=== PATIENT | female | born 1940 | race Caucasian/White ===

== ENCOUNTER 2023-02-07 15:10 | Outpatient (AMB) | payer MEDICARE, SELFPAY ==
--- NOTE | 2023-02-07 15:18 | A.OFFVIS_ITS ---
Intake Vital Signs 02/07/23 15:24 Height 5 ft 1 in Weight 140 lb BMI 26.4 BP 128/62 Blood Pressure Location Lt brachial Position Sitting Respiration 16 Pulse 68 Pulse Source Pulse Oximeter Pulse Oximetry (%) 98 Oxygen Delivery Method Room Air Intake Visit Reasons: [employer]: Abnormal MRI of Head - Conf Intake Note: Pt presents to the office for new pt evaluation after having an abnormal MRI of the head. Silk Spreader Required: No Allergies nitrofurantoin [From Macrobid] Allergy (Intermediate, Verified 02/07/23 15:27) Rash Medication List - Last Reconciled 02/07/23 by Maria Del Rosario Philip MD acetaminophen (Tylenol) 325 mg PO QID PRN acetaminophen ER (Tylenol Arthritis Pain) 650 mg PO Q8H amlodipine 10 mg PO DAILY aspirin 81 mg PO DAILY atorvastatin 20 mg PO DAILY carvedilol 25 mg PO BID cholecalciferol (vitamin D3) 50 mcg PO DAILY fluticasone propionate 50 mcg/actuation 1 spray intranasal DAILY latanoprost 0.005% 1 drp ophthalmic (eye) DAILY meclizine 12.5 mg PO BID-QID PRN metformin 500 mg PO BID ondansetron HCl 4 mg PO Q8H oxybutynin chloride 5 mg PO DAILY promethazine 12.5 mg PO Q6H PRN sacubitril-valsartan 24-26 mg (Entresto) 1 tab PO BID HPI HPI Comments History of Present Illness Details 82y/o female comes for neurological eval uation.In July 2022 she had an episode of dizziness ( spinning sensation) headaches, sensation of loss of balance ,nausea, vomiting , head pressure with loud noise in her ears .It lasted for about 1-2 days . she was taken to ER. MRI was nonfocal, CTA showed mild josé ICA stenosis and right vertebral artery stenosis .she was seen by vascular who suggested to continue aspirin and atorvastatin she was diagnosed with vertigo - likely peripheral and was discharged on vestibular and occupational therapy . Since her discharge she pond shad mild episodes - flonase has helped her. Any change in atmosheric pressure makes her episodes worse. [facility] Medical History (Updated 02/07/23 @ 16:12 by Maria Del Rosario Philip MD) Vertigo Cervicalgia CAD (coronary artery disease) CHF (congestive heart failure) Depression HTN (hypertension) Diabetes Breast cancer Carotid artery disease Surgical History H/O mastectomy History of appendectomy Family History Mother No problems noted. Father HTN (hypertension) Hypercholesterolemia Heart disease Sister No problems noted. Household Members: Spouse and Children Caregiver staying overnight: Yes Housing: House Alcohol intake: never Patient Tobacco Use Status: Never used Tobacco Use of substances other than those prescribed or required for medical reasons: No Review of Systems Const Details: see HPI Physical Exam Vital Signs: Last Vital Signs Pulse 68 02/07/23 15:24 Resp 16 02/07/23 15:24 BP 128/62 02/07/23 15:24 Pulse Ox 98 02/07/23 15:24 Oxygen Delivery Method Room Air 02/07/23 15:24 BMI result Body Mass Index 26.4 Const General: cooperative, healthy appearing and comfortable Nutritional Appearance: average body habitus Orientation/consciousness: patient oriented x3 Eyes Pupils: Equal, round and reactive pupils present Neck Neck: Yes no meningeal signs Neuro Other: antecollis severe tightness in josé trapezius and semispinalis General: patient oriented x3, gait normal, tone normal, moves all extremities, no meningeal signs and no focal motor deficits Cranial nerves: Yes Facial sensation intact/muscles of mastication intact, Yes Equal, round and reactive pupils present, Yes Bilaterally intact EOM present, Yes Nystagmus not present, Yes Normal facial strength present, Yes Midline tongue present and Yes Symmetric palate elevation present Cognition (Neuro): normal cognition Gait exam (Neuro): Normal gait present Motor exam (neuro): 5/5 motor strength present throughout and Normal motor muscle tone present throughout Deep tendon reflexes (DTR's): Right triceps reflex intensity grade: 1+, Left triceps reflex intensity grade: 1+, Rt Biceps (C5, C6): 1+, Left biceps reflex intensity grade: 1+, Right brachioradialis reflex intensity grade: 1+, Left brachioradialis reflex intensity grade: 1+, Right patellar reflex intensity grade: 1+ and Left patellar reflex intensity grade: 1+ Coordination: [id number] test normal Assessment & Plan Assessment & Plan (1) Vertigo: Comment: ? vestibular migraine ? BPV . Incidental right vertebral artery stenosis Code(s): R42 - Dizziness and giddiness (2) Cervicalgia: Code(s): M54.2 - Cervicalgia Plan Reviewed her MRI and CTA results I suggested to continue aspirin 81mg qd and atorvastatin 20 mg qd Continue vestibular therapy and meclizine as needed C spine XRay PT for myofascial release Orders: Orders XR cervical spine 3V Today M54.2 - Cervicalgia PT Evaluation and Treatment Today M54.2 - Cervicalgia Coding Level of Care Code New Pt Level 4 (87479) Diagnoses Vertigo R42 Cervicalgia M54.2
[2023-02-07 15:24] VITALS: BP 128/62; PULSE 68; RESP 16; O2SAT 98; BMI 26.4
== END 2023-02-07 16:10 | disposition home or self-care (01) ==
PROVIDERS: PCP Internal Medicine; Visit Provider Psychiatry & Neurology Neurology
DX: R42 Dizziness and giddiness (principal); M54.2 Cervicalgia
CPT/HCPCS: 99204

== ENCOUNTER → 2023-02-07 15:10 | Outpatient (BNVA) | payer MEDICARE, SELFPAY | PROVIDERS: PCP Internal Medicine; Visit Provider Psychiatry & Neurology Neurology | DX: R42 Dizziness and giddiness (principal); M54.2 Cervicalgia | CPT/HCPCS: 99202 ==

== ENCOUNTER 2024-05-20 13:10 | Outpatient (AMB) | payer MEDICARE, SELFPAY ==
--- NOTE | 2024-05-20 13:12 | A.OFFVIS_ITS ---
Vital Signs 05/20/24 13:18 Height 5 ft 1 in Pulse 62 Pulse Source Pulse Oximeter Pulse Oximetry (%) 98 Oxygen Delivery Method Room Air Intake Visit Reasons: Follow up-had stroke in December Intake Note: Patient added urgently, daughter made appointment mom had stroke in December since then she hasn't been doing good. Allergies nitrofurantoin [From Macrobid] Allergy (Intermediate, Verified 05/20/24 13:19) Rash HPI Comments Details: 82y/o female comes for neurological evaluation following a stroke in Dec 282023. she had a headaches the whole day and dizziness and at around midnight had slurred speech and speech and was weak. AT [facility] she was found to have left sided weakness , left hemineglect and was confused .she was not eligible for IV thrompoysis as she was outside the window and she also started improving. CT showed hyperdense vessel at Right GA M2 . CTA showed occlusion of inf division of Right MCA , atherosclerosis Left MCA neck and Right V 4 atherosis . Due to her clinical improvement thrombectomy was ruled out . she was diagnsoed with atrial fibrillation Now she is on Eliquis she also had a fall In Mar 23 at home - fracture left hip . she had surgery and is doing better. Prior history-In July 2022 she had an episode of dizziness ( spinning sensation) headaches, sensation of loss of balance ,nausea, vomiting , head pressure with loud noise in her ears .It lasted for about 1-2 days . she was taken to ER. MRI was nonfocal, CTA showed mild josé ICA stenosis and right vertebral artery stenosis .she was seen by vascular who suggested to continue aspirin and atorvastatin she was diagnosed with vertigo - likely peripheral and was discharged on vestibular and occupational therapy . Since her discharge she pond shad mild episodes - flonase has helped her. Any change in atmosheric pressure makes her episodes worse. [facility] Medical History CVA (cerebral vascular accident) Vertigo Cervicalgia CAD (coronary artery disease) CHF (congestive heart failure) Depression HTN (hypertension) Diabetes Breast cancer Carotid artery disease Surgical History History of hip surgery H/O mastectomy History of appendectomy Family History Mother No problems noted. Father HTN (hypertension) Hypercholesterolemia Heart disease Sister No problems noted. Social History Household Members: Spouse and Children Caregiver staying overnight: Yes Housing: House Alcohol intake: never Patient Tobacco Use Status: Never used Tobacco Physical Exam Vital Signs: Last Vital Signs Pulse 62 05/20/24 13:18 Pulse Ox 98 05/20/24 13:18 Oxygen Delivery Method Room Air 05/20/24 13:18 Const General: cooperative, healthy appearing and comfortable Nutritional Appearance: average body habitus Orientation/consciousness: patient oriented x3 Eyes Pupils: Equal, round and reactive pupils present Neck Neck: Yes no meningeal signs Neuro Other: antecollis severe tightness in josé trapezius and semispinalis Mild left facial paresis , Mild left UE weakness and Le weakness gait not evaluated today General: patient oriented x3, tone normal, moves all extremities, no meningeal signs and no focal motor deficits Cranial nerves: Yes Facial sensation intact/muscles of mastication intact, Yes Equal, round and reactive pupils present, Yes Bilaterally intact EOM present, Yes Nystagmus not present, Yes Midline tongue present and Yes Symmetric palate elevation present Cognition (Neuro): normal cognition Motor exam (neuro): Normal motor muscle tone present throughout Deep tendon reflexes (DTR's): Right triceps reflex intensity grade: 2+, Left triceps reflex intensity grade: 2+, Rt Biceps (C5, C6): 2+, Left biceps reflex intensity grade: 2+, Right brachioradialis reflex intensity grade: 2+, Right patellar reflex intensity grade: 3+ and Left patellar reflex intensity grade: 3+ Assessment & Plan Assessment & Plan (1) CVA (cerebral vascular accident): Code(s): I63.9 - Cerebral infarction, unspecified Category: Medical (2) Vertigo: Comment: ? vestibular migraine ? BPV . Incidental right vertebral artery stenosis Code(s): R42 - Dizziness and giddiness Category: Medical (3) Cervicalgia: Code(s): M54.2 - Cervicalgia Category: Medical Plan Continue Eliquis 5 mg bid - f/u with Cardiology Continue PT f/u with PCP Coding Level of Care Code Est Pt Level 4 (59463) Complex EM visit Add On G2211 Diagnoses CVA (cerebral vascular accident) I63.9 Vertigo R42 Cervicalgia M54.2
[2024-05-20 13:18] VITALS: PULSE 62; O2SAT 98
--- OUTSIDE RECORDS SUMMARY | 2024-05-20 16:28 | XMS_ITS | Encounter Summary ---
Author Organization [facility] Address [address] [place] [address] Care Team Providers Care Dump Motor Operator Name Role Phone Brielle Barrientos MD Primary Care Pr ovid Reason for Referral * Consultation (Routine) - Authorized Specialty Diagnoses / Procedures Referred By Contac t Referred To Contact Orthopedic Surgery Diagnoses Left hip pain Brielle Barrientos MD [address] [place] [phone] Phone: tel: fax: Alicia Fraire MD [address] [place] [phone] Phone: tel: fax: Referral ID Status Reason Start Date Expiration Date Visits Requested Visits Authorized [id number] Authorized Specialty Services Required 04/29/2024 04/29/2025 12 12 Reason for Visit * Reason Onset Date Comments Referral 04/22/2024 Fax requesting terri galdamez referral - orthopedics Encounter Details Date Type Department Care Team ([facility] st Contact Info) Description 04/22/2024 Telephone Adult Medicine [address] [phone] Brielle Barrientos MD [address] [place] [address] [phone] Referral (Fax requesting insurance referral - orthopedics) Social History Tobacco Use Types Packs/Day Years Used Date Smoking Tobacco: Never Smokeless Tobacco: Never Alcohol Use Standard Drinks/Week Comments Never 0 (1 standard drink = 0.6 oz pur e alcohol) Comments Unknown Sex and Gender Information Value Date Recorded Sex Assigned at Not on file Legal Sex Female 11:27 PM EST Gender Identity Not on file Sexual Orientation Not on file documented as of this encounter Progress Notes * Roula Dee - 04/22/2024 2:43 PM EST Fax rec'd requesting an ins referral Caller: Fax Office: [facility] Specialty: orthopedics Insurance: [facility] ID: [id number] Provider: Ryley Fraire DOS: 04/29/24 Visits: 12 Dx code: M25.552 Pls create an order with the above information so that I may process it through the pts insurance. Thank you IMPORTANT Pls copy and paste the above info into the order. Otherwise, it will not be processed as an ins referral documented in this encounter Plan of Treatment Upcoming Encounters Date Type Department Care Team (Late st Contact Info) Description 05/23/2024 11:45 AM EST Appointment Bone Density - [address] [phone] 05/26/2024 3:00 PM EDT Consult Endocrinology - [address] [phone] Irina Wheeler MD [address] [place] [phone] 08/22/2024 10:30 AM EDT Office Visit Adult Medicine [facility] - [address] [phone] Melanie Mata PA [address] [place] [address] 01/22/2025 10:15 AM EST Office Visit [facility] Hematology Oncology [address] [place] [phone] Hong Verma MD [address] [place] [address] Scheduled Referrals Name Type Priority Associated Diagnoses Order Schedule Ambulatory referral to Orthopedic Outpatient Referral Routine Left hip pain 1 Occurrences starting 04/24/2024 until 04/24/2025 documented as of this encounter Goals Goal Patient Goal Type Associated Problems Recent Progress Patient-Stated? Author Pt goals General On track( 3:53 PM EST) Yes James Johnson, OT Note: Get back to cooking and cleaning like she did before OT STG 6-8 visits General On track( 2:13 PM EST) No James Johnson, OT Note: Pt to identify 1-2 adaptive tech/equipment to increase I with ADLs, IADLs - Met Pt to increase wrist ext to >= 30* to improved I with dressing - Met Pt to increase L bar tacker strength to >= 35# to be able to use L UE to cut soft foods - progressing toward goal Pt to increase L sh flex AROM >= 120* to increase independence in dressing - progressing toward goal Pt to perform initial HEP MOD I - Met OT LTG 12 visits General On track( 3:52 PM EST) Yes James Johnson, OT Note: Pt will demo improved L UE AROM WFL for light IADLs Pt to demo increased bar tacker strength >= 40# to be able to cut tough foods Pt to perform HEP MOD I documented as of this encounter Visit Diagnoses Diagnosis Left hip pain- Primary Pain in joint, pelvic region and thigh documented in this encounter Care Teams Dump Motor Operator Relationship Specialty Start Date End Date Brielle Barrientos MD [address] [place] [address] PCP - General Internal Medicine 01/11/24 documented as of this encounter
--- OUTSIDE RECORDS SUMMARY | 2024-05-20 16:28 | XMS_ITS ---
Author Organization [facility] Address [address] [facility] [address] [place] [address] Care Team Providers Care Public Policy Manager Name Role Phone Yahir Bill Primary Care Provider Unavaildavid Hua M.D, M.P.H, Sri Unavailable [facility] Adult [facility] Unavailable U navailable REASON FOR VISIT Sensorineural hearing loss (SNHL) of right ear with restricted hearing of left ear Encounters Encounter Location Date Provider Diagnosis [facility] [address] [phone] 10/22/2023 Sri Hua Plan Of Treatment No Information Progress Notes * Sherrill PADILLA SDOB:[birth year] (83 yo F)Acc No.[id number]:10/22/2023 Progress Note Patient:?Sherrill PADILLA Provider:?Sri Hua M.D.,M.P.H :1940???Age:82 Y???Sex:Female D ate:10/22/2023 Address:[address] [place], [place] [phone] Pcp:Yahir Bill Subjective: * Chief Complaints: * ???1. Sensorineural hearing loss (SNHL) of right ear with restricted hearing of left ear. * Medical History:? Objective: * Vitals:? * Physical Examination:? Assessment: Plan: * Treatment: * Images: * Electronic signature of Olga Hua M.D M.P.H, Pamela,M.P.H on 05/20/2024 at 04:28 PM EST Sign off status: Pending * Provider:?Sri Hua M.D.,M.P.H Date:?0 10/22/2023 Generated for Eneida basilio/Zeenat/Dre on:?05/20/2024 04:28 PM EST
--- OUTSIDE RECORDS SUMMARY | 2024-05-20 16:28 | XMS_ITS | Encounter Summary ---
Author Organization [facility] Address [address] [place] [address] Care Team Providers Care Food Service Kitchen Supervisor Name Role Phone Brielle Barrientos MD Primary Care Pr ovider Reason for Visit * Reason Comments Constipation Anemia * Consultation (Routine) - Authorized Specialty Diagnoses / Procedures Referred By Contac t Referred To Contact Gastroenterology Diagnoses Other constipation Procedures N/A Brielle Barrientos MD [address] [place] [address] Phone: tel: fax: Carlo Simons MD [address] [place] [address] Phone: tel: fax: Referral ID Status Reason Start Date Expiration Date V isits Requested Visits Authorized [id number] Authorized 08/14/2023 08/13/2024 6 6 Encounter Details Date Type Department Care Team ([facility] st Contact Info) Description 05/16/2024 3:00 PM EST Office Visit Gastroenterology - [place] 175 [facility] [address] [address] Torie Hathaway NP [address] [address] Dyssynergic defecation (Primary Dx); Normocytic anemia Social History Tobacco Use Types Packs/Day Years [...] on file documented as of this encounter Last Filed Vital Signs Vital Sign Reading Time Taken Comments Blood Pressure 136/60 05/16/2024 3:13 PM EST Pulse - - Temperature - - Respiratory Rate - - Oxygen Saturation - - Inhaled Oxygen Concentration - - Weight - - Height 163.8 cm (5' 4.5 ) 05/16/2024 3:13 PM EST Body Mass Index - - documented in this encounter Ordered Prescriptions Prescription Sig Dispense Quantity Refills Last Filled Start Date End Date senna-docusate (PERICOLACE) 8.6-50 mg per tablet Take 2 tablets by mouth 1 (one) time each day if needed for constipation. 180 each 05/18/2024 documented in this encounter Progress Notes * Torie Hathaway, CHARLES - 05/16/2024 3:00 PM EST CHIEF COMPLAINT: Follow-up constipation HPI: Sherrill Ealsey is a Mexican speaking 83 y.o. old female whose PMH includes hypertension, chronic systolic heart failure, ischemic cardiomyopathy, varicose veins of both lower extremities, type 2 diabetes mellitus without complication, mixed hyperlipidemia, urge incontinence of urine, localized osteoporosis, osteoarthritis of multiple joints, benign paroxysmal positional vertigo, alcohol,breast size and historical appendectomy presents to the gastroenterology department today for a follow up of constipation. Patient is Mexican speaking. She is accompanied by her daughter who translated during this visit. She is in a wheelchair due to left hip fracture. Patient reports history of cerebrovascular accident due to thrombosis of right middle cerebral artery February 2024. She also presented to [facility] in March after a fall at home withsubsequent intertrochanteric fracture of left hip. She reports constipation was worse when she was using oxycodone for pain management. However, she is now using Tylenol instead constipation is well-managed with use of lactulose. Lab work completed on 05/02/2024 revealed mild normocytic anemia. She is taking iron ferrous sulfate. Today, she denies fever, nausea, vomiting, dysphagia, odynophagia, hematemesis, acid reflux or heartburn, abdominal pain, loss of appetite, unintentional weight loss, melena or hematochezia. She denies NSAIDs, alcohol, tobacco or marijuana use. She is on Eliquis due to recent stroke. ROS: GENERAL: No malaise, significant weight loss or fever HEENT: No changes in hearing or vision, nose bleeds or swallowing problems NECK: No lumps, goiter, pain or significant neck swelling RESPIRATORY: No cough, wheezing or shortness of breath CARDIOVASCULAR: No chest pain GI: See HPI MUSCULOSKELETAL: Left hip pain secondary to left hip fracture SKIN: No lesions, rash or itching PAST MEDICAL HISTORY: Patient Active Problem List Diagnosis Date Noted Osteoarthritis of spine with radiculopathy, lumbar region 03/10/2024 Basal cell carcinoma (BCC) of skin of face 03/10/2024 Facet arthropathy, lumbar 01/27/2024 Spinal stenosis of lumbar region without neurogenic claudication 01/27/2024 Stenosis of both vertebral arteries 01/26/2024 History of breast cancer 01/26/2024 Varicose veins of bilateral lower extremities with other complications 01/26/2024 Thyroid lesion 01/26/2024 Left bundle branch block 01/26/2024 Right internal carotid artery aneurysm 01/26/2024 Primary insomnia 01/26/2024 Primary hypertension 01/26/2024 Age-related osteoporosis without current pathological fracture 01/25/2024 Cerebrovascular accident (CVA) due to thrombosis of right middle cerebral artery ([facility]) 01/25/2024 Hyperlipidemia LDL goal <70 01/25/2024 CKD stage 3b, GFR 30-44 ml/min ([facility]) 01/25/2024 Chronic constipation 01/25/2024 Skin lesion of face 01/25/2024 Dilated cardiomyopathy ([facility]/H[facility]) 01/25/2024 Paroxysmal atrial fibrillation ([facility]) 01/25/2024 Primary open angle glaucoma (POAG) of both eyes 01/25/2024 Generalized anxiety disorder 01/25/2024 Allergic rhinitis 01/25/2024 Subclinical hyperthyroidism 01/25/2024 Anemia of chronic renal failure, stage 3b ([facility]/HCC) 01/25/2024 Iron deficiency 01/25/2024 B12 deficiency 01/25/2024 Urge incontinence 01/25/2024 Type 2 diabetes mellitus with diabetic microalbuminuria, without long-term current use of insulin ([facility]) 01/25/2024 Itchy eyes 01/25/2024 Primary osteoarthritis involving multiple joints 08/14/2023 Benign paroxysmal positional vertigo due to bilateral vestibular disorder 06/05/2020 SOCIAL HISTORY: Social History Tobacco Use Smoking status: Never Smokeless tobacco: Never Substance Use Topics Alcohol use: Never FAMILY HISTORY: No family history on file. ACTIVE MEDICATIONS: Outpatient Medications Marked as Taking for the 05/16/24 encounter (Office Visit) with Torie Hathaway NP Medication Sig Dispense Refill acetaminophen (TYLENOL 8 HOUR) 650 mg 8 hr tablet Take 1 tablet (650 mg total) by mouth every 8 (eight) hours if needed for mild pain. Do not crush, chew, or split. amLODIPine (NORVASC) 5 mg tablet Take 1 tablet (5 mg total) by mouth 1 (one) time each day. Take with 2.5mg for total of 7.5mg daily 90 each 1 aspirin 81 mg EC tablet Take 1 tablet (81 mg total) by mouth 1 (one) time each day. atorvastatin (LIPITOR) 20 mg tablet Take 1 tablet (20 mg total) by mouth at bedtime. 90 tablet 1 calcium carbonate EX (TUMS EX) 300 mg (750 mg) chewable tablet Chew 1 tablet (300 mg total) 1 (one)time each day. cholecalciferol (VITAMIN D-3) 50 mcg (2,000 unit) tablet Take 1 tablet (2,000 Units total) by mouth1 (one) time each day. citalopram (CeleXA) 10 mg tablet Take 0.5 tablets (5 mg total) by mouth 1 (one) time each day in the morning. 45 tablet 1 cyanocobalamin (VITAMIN B-12) 1,000 mcg tablet Take 1 tablet (1,000 mcg total) by mouth 1 (one) time each day. 90 each 3 denosumab (PROLIA) 60 mg/mL syringe syringe Inject 1 mL (60 mg total) under the skin 1 (one) time. Eliquis 5 mg tablet Take 1 tablet (5 mg total) by mouth every 12 hours. fluticasone propionate (FLONASE) 50 mcg/actuation nasal spray Administer 1 spray into each nostril 2 (two) times a day. Shake gently. Before first use, prime pump. After use, clean tip and replace cap. 16 g 1 ketotifen (Zaditor) 0.025 % ophthalmic solution Administer 1 drop into both eyes 1 (one) time each day in the morning. 10 mL 1 lactulose (CHRONULAC) solution Take 15 mL (10 g total) by mouth 1 (one) time each day if needed (constipation). latanoprost (XALATAN) 0.005 % ophthalmic solution Administer 1 drop into both eyes at bedtime. LORazepam (ATIVAN) 0.5 mg tablet Take 1 tablet (0.5 mg total) by mouth every 6 (six) hours if needed for anxiety. melatonin 3 mg tablet Take 1 tablet (3 mg total) by mouth at bedtime. methIMAzole (TAPAZOLE) 5 mg tablet Take 1 tablet (5 mg total) by mouth 1 (one) time each day. 90 tablet 1 oxyBUTYnin XL (DITROPAN-XL) 10 mg 24 hr tablet Take 1 tablet (10 mg total) by mouth 1 (one) time each day. Do not crush, chew, or split. 90 each 1 sacubitriL-valsartan (ENTRESTO) 24-26 mg per tablet Take 1 tablet by mouth 2 (two) times a day. Current Facility-Administered Medications for the 05/16/24 encounter (Office Visit) with Torie Hathaway NP Medication Dose Route Frequency Provider Last Rate Last Admin cyanocobalamin (VITAMIN B-12) injection 1,000 mcg 1,000 mcg intramuscular q30 days Brielle Barrientos MD 1,000 mcg at 02/13/24 1602 ALLERGIES: Allergies Allergen Reactions Macrobid [Nitrofurantoin Monohyd/M-Cryst] PHYSICAL EXAM: Visit Vitals BP 136/60 Ht 1.638 m (64.5 ) BMI 22.81 kg/m?? Smoking Status Never BSA 1.66 m?? APPEARANCE: Alert and in no acute distress EYES: Conjunctiva and sclera normal. MOUTH/THROAT: no erythema or exudates NECK: Neck supple, no adenopathy HEART: RRR with normal S1 and S2 LUNG: Clear to auscultation ABDOMEN: Soft non tender, no ascites, guarding, or rebound. RECTAL: Exam deferred. SKIN: Skin color, texture, turgor normal. NEURO: Awake, alert and oriented x 3 LABS: Appointment on 04/21/2024 Component Date Value Ref Range Status Vitamin B-12 04/21/2024 679 250 - 900 pcg/mL Final IMAGING: No pertinent imaging IMPRESSION: 1. Dyssynergic defecation 2. Normocytic anemia PLAN: Sherrill Easley is a Mexican speaking 83 y.o. old female whose PMH includes hypertension, chronic systolic heart failure, ischemic cardiomyopathy, varicose veins of both lower extremities, type 2 diabetes mellitus without complication, mixed hyperlipidemia, urge incontinence of urine, localized osteoporosis, osteoarthritis of multiple joints, benign paroxysmal positional vertigo, alcohol, breast size and historical appendectomy presents for follow-up constipation. 1. Dyssynergic defecation: Constipation due to anal sphincter weakness/pelvic floor dysfunction. Increase dietary fiber and fluid intake. May use Metamucil or Benefiber. Continue using lactulose as directed. May titrate as needed. May also use Senokot as needed. 2. Normocytic anemia: Anemia workup completed 05/02/2024 revealed mild normocytic anemia with hemoglobin 10.3, hematocrit 32.7 and normal MCV. Continue taking iron ferrous sulfate. Continue monitoring labs through your PCP. If persistent, I will consider diagnostic EGD and colonoscopy after recovery of left hip fracture. Follow-up as needed. Patient agrees with the above plan and understands the need to follow up as indicated. Please note, this note may have been created in part by using [employer] dictation software, and therefore, it may contain typographical and/or grammatical errors inherent in a voice recognition software program documented in this encounter Plan of Treatment Upcoming Encounters Date Type Department Care Team (Late st Contact Info) Description 05/23/2024 11:45 AM EST Appointment Bone Density - [address] [phone] 05/26/2024 3:00 PM EDT Consult Endocrinology - [address] [phone] Irina Wheeler MD [address] [place] [phone] 08/22/2024 10:30 AM EDT Office Visit Adult Medicine [address] [phone] Melanie Mata PA [address] [place] [address] 01/22/2025 10:15 AM EST Office Visit [facility] Hematology Oncology [address] [place] [phone] Hong Verma MD [address] [place] [address] documented as of this encounter Goals Goal [...] dressing - Met 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
--- OUTSIDE RECORDS SUMMARY | 2024-05-20 16:28 | XMS_ITS | Encounter Summary ---
Author Organization [facility] Address [address] [place] [address] Care Team Providers Care Automotive Starter Repairer Name Role Phone Brielle Barrientos MD Primary Care Pr ovider Encounter Details Date Type Department Care Team (Late Contact Info) Description 04/02/2024 Lab Requisition [facility] - Main Lab [address] [facility] [place] [address] Yasmany Tsai MD [address] [place] [address], [phone] Hyperlipidemia, unspecified; Type 2 diabetes mellitus without complications (CMS/HCC) Social History Tobacco Use Types Packs/Day Years [...] on file documented as of this encounter Plan of Treatment Upcoming Encounters Date Type Department Care Team (Late Contact Info) Description 05/23/2024 11:45 AM EST Appointment Bone Density - [address] [phone] 05/26/2024 3:00 PM EDT Consult Endocrinology - [address] [phone] Irina Wheeler MD [address] [place] [phone] 08/22/2024 10:30 AM EDT Office Visit Adult Medicine [address] [phone] Melanie Mata PA [address] [place] [address] 01/22/2025 10:15 AM EST Office Visit [facility] Hematology Oncology [address] [place] [phone] Hong Verma MD [address] [place] [address] documented as of this encounter Goals Goal [...] dressing - Met 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 >= 35# to be able [...] for light IADLs Pt to demo increased used car sales supervisor strength >= 40# to be able to cut tough foods Pt to perform HEP MOD I documented as of this encounter Procedures Procedure Name Priority Date/Time Associated Diagnosis Comments LIPID PANEL WITH REFLEX TO DIRECT LDL Routine 04/02/2024 5:24 AM EST Hyperlipidemia, unspecified Type 2 diabetes mellitus without complications (CMS/HCC) IRON AND TIBC Routine 04/02/2024 5:24 AM EST Hyperlipidemia, unspecified Type 2 diabetes mellitus without complications (CMS/HCC) COMPLETE BLOOD COUNT Routine 04/02/2024 5:24 AM EST Hyperlipidemia, unspecified Type 2 diabetes mellitus without complications (CMS/HCC) THYROID STIMULATING HORMONE Routine 04/02/2024 5:24 AM EST Hyperlipidemia, unspecified Type 2 diabetes mellitus without complications (CMS/HCC) THYROXINE TOTAL Routine 04/02/2024 5:24 AM EST Hyperlipidemia, unspecified Type 2 diabetes mellitus without complications (CMS/HCC) HEMOGLOBIN A1C Routine 04/02/2024 5:24 AM EST Hyperlipidemia, unspecified Type 2 diabetes mellitus without complications (CMS/HCC) FERRITIN Routine 04/02/2024 5:24 AM EST Hyperlipidemia, unspecified Type 2 diabetes mellitus without complications (CMS/HCC) COMPREHENSIVE METABOLIC PANEL Routine 04/02/2024 5:24 AM EST Hyperlipidemia, unspecified Type 2 diabetes mellitus without complications (CMS/HCC) documented in this encounter Results * Thyroxine total (04/02/2024 5:24 AM EST) T4, Total 6.4 4.5 - 10.9 mcg/dL LAB CHEMISTRY METHOD 04/02/2024 10:18 AM EST [facility] Blood Venous blood specimen / Unknown Venipuncture / Unknown 04/02/2024 5:24 AM EST 04/02/2024 8:59 AM EST us Yasmany Tsai MD LAB BLOOD ORDERABLES Final Resul t [facility] [address] [place] [address], * Thyroid stimulating hormone (04/02/2024 5:24 AM EST) Pathologist [facility] TSH 1.84 0.40 - 4.00 mcIU/mL LAB CHEMISTRY METHOD 04/02/2024 10:19 AM EST [facility] Blood Venous blood specimen / Unknown Venipuncture / Unknown 04/02/2024 5:24 AM EST 04/02/2024 8:59 AM EST us Yasmany Tsai MD LAB BLOOD ORDERABLES Final Resul t [facility] [address] [place] [address], * Hemoglobin A1c (04/02/2024 5:24 AM EST) [facility] Hemoglobin A1C 5.6 <6.5 % LAB CHEMISTRY METHOD 04/02/2024 12:30 PM EST [facility] Mean Bld Glu Estim. 114 mg/dL LAB CHEMISTRY METHOD 04/02/2024 12:30 PM EST [facility] Blood Venous blood specimen / Unknown Venipuncture / Unknown 04/02/2024 5:24 AM EST 04/02/2024 8:59 AM EST us Yasmany Tsai MD LAB BLOOD ORDERABLES Final Resul t [facility] [address] [place] [address], [place] [phone] * Ferritin (04/02/2024 5:24 AM EST) Pathologist [facility] Ferritin 140 8 - 252 ng/mL LAB CHEMISTRY METHOD 04/02/2024 10:11 AM EST [facility] Blood Venous blood specimen / Unknown Venipuncture / Unknown 04/02/2024 5:24 AM EST 04/02/2024 8:59 AM EST Yasmany Tsai MD LAB BLOOD ORDERABLES Final Resul t Performing Organization Address [facility]/ZIP Co de Phone Number [facility] [address] [place] [address], [place] [phone] * (ABNORMAL) Iron and TIBC (04/02/2024 5:24 AM EST) Iron 39(L) 40 - 150 mcg/dL LAB CHEMISTRY METHOD 04/02/2024 10:11 AM EST [facility] TIBC 252 250 - 450 mcg/dL LAB CHEMISTRY METHOD 04/02/2024 10:11 AM EST [facility] Iron Saturation 15 15 - 50 % LAB CHEMISTRY METHOD 04/02/2024 10:11 AM EST [facility] Blood Venous blood specimen / Unknown Venipuncture / Unknown 04/02/2024 5:24 AM EST 04/02/2024 8:59 AM EST Yasmany Tsai MD LAB BLOOD ORDERABLES Final Resul t Performing Organization Address [facility] de Phone Number [facility] [address] [place] [address], [place] [phone] * Lipid panel with reflex to direct LDL (04/02/2024 5:24 AM EST) Pathologist [facility] Cholesterol 103 0 - 200 mg/dL LAB CHEMISTRY METHOD 04/02/2024 10:11 AM EST [facility] Triglycerides 58 0 - 150 mg/dL LAB CHEMISTRY METHOD 04/02/2024 10:11 AM EST [facility] HDL 41 >=40 mg/dL LAB CHEMISTRY METHOD 04/02/2024 10:11 AM EST [facility] LDL Calculated 50 0 - 100 mg/dL LAB CHEMISTRY METHOD 04/02/2024 10:11 AM EST [facility] VLDL Cholesterol Bhupinder 11.6 mg/dL LAB CHEMISTRY METHOD 04/02/2024 10:11 AM EST [facility] Non HDL Chol. (LDL+VLDL) 62 <145 mg/dL LAB CHEMISTRY METHOD 04/02/2024 10:11 AM [facility] Chol/HDL Ratio 2.5 0.0 - 4.4 LAB CHEMISTRY METHOD 04/02/2024 10:11 AM [facility] Blood Venous blood specimen / Unknown Venipuncture / Unknown 04/02/2024 5:24 AM EST 04/02/2024 8:59 AM EST us Yasmany Tsai MD LAB BLOOD ORDERABLES Final Resul t [facility] [address] [place] [address], * (ABNORMAL) Comprehensive metabolic panel (04/02/2024 5:24 AM EST) Sodium 140 133 - 145 mmol/L LAB CHEMISTRY METHOD 04/02/2024 10:24 AM [facility] Potassium 4.2 3.5 - 5.5 mmol/L LAB CHEMISTRY METHOD 04/02/2024 10:24 AM [facility] Chloride 108 96 - 110 mmol/L LAB CHEMISTRY METHOD 04/02/2024 10:24 AM [facility] CO2 25 21 - 32 mmol/L LAB CHEMISTRY METHOD 04/02/2024 10:24 AM [facility] Anion Gap 7 3 - 11 LAB CHEMISTRY METHOD 04/02/2024 10:24 AM [facility] Glucose 106(H) 70 - 100 mg/dL LAB CHEMISTRY METHOD 04/02/2024 10:24 AM [facility] BUN 23 5 - 25 mg/dL LAB CHEMISTRY METHOD 04/02/2024 10:24 AM [facility] Creatinine 1.34(H) 0.50 - 1.10 mg/dL LAB CHEMISTRY METHOD 04/02/2024 10:24 AM [facility] eGFR 39(L) >=60 mL/min/1. 73m2 LAB CHEMISTRY METHOD 04/02/2024 10:24 AM [facility] Comment:Calculation based on the??Chronic Kidney Disease Epidemiology Collaboration (CKD-EPI) equation refit??without adjustment for race. BUN/Creatinine Ratio 17.2 LAB CHEMISTRY METHOD 04/02/2024 10:24 AM [facility] Calcium 8.5 8.5 - 10.5 mg/dL LAB CHEMISTRY METHOD 04/02/2024 10:24 AM [facility] AST (SGOT) 51(H) 10 - 42 unit/L LAB CHEMISTRY METHOD 04/02/2024 10:24 AM [facility] ALT (SGPT) 38 10 - 60 unit/L LAB CHEMISTRY METHOD 04/02/2024 10:24 AM [facility] Alkaline Phosphatase 107 42 - 121 unit/L LAB CHEMISTRY METHOD 04/02/2024 10:24 AM [facility] Total Protein 6.1 6.0 - 8.0 g/dL LAB CHEMISTRY METHOD 04/02/2024 10:24 AM [facility] Albumin 2.7(L) 3.2 - 5.0 g/dL LAB CHEMISTRY METHOD 04/02/2024 10:24 AM [facility] Total Bilirubin 0.8 0.0 - 1.4 mg/dL LAB CHEMISTRY METHOD 04/02/2024 10:24 AM [facility] Blood Venous blood specimen / Unknown Venipuncture / Unknown 04/02/2024 5:24 AM EST 04/02/2024 8:59 AM EST us Yasmany Tsai MD LAB BLOOD ORDERABLES Final Resul t [facility] [address] [place] [address], * (ABNORMAL) Complete blood count (04/02/2024 5:24 AM EST) [facility] Signature WBC 7.4 4.8 - 10.8 K/mcL LAB HEMETOLOGY METHOD 04/02/2024 9:58 AM EST [facility] RBC 3.00(L) 3.80 - 4.80 M/mcL LAB HEMETOLOGY METHOD 04/02/2024 9:58 AM [facility] Hemoglobin 8.5(L) 11.5 - 16.0 g/dL LAB HEMETOLOGY METHOD 04/02/2024 9:58 AM [facility] Hematocrit 27.1(L) 35.0 - 47.0 % LAB HEMETOLOGY METHOD 04/02/2024 9:58 AM [facility] MCV 91.2 79.0 - 98.0 FL LAB HEMETOLOGY METHOD 04/02/2024 9:58 AM [facility] MCH 28.6 27.0 - 32.0 pcg LAB HEMETOLOGY METHOD 04/02/2024 9:58 AM [facility] MCHC 31.4(L) 32.0 - 37.0 g/dL LAB HEMETOLOGY METHOD 04/02/2024 9:58 AM [facility] RDW 17.5(H) 11.0 - 15.0 % LAB HEMETOLOGY METHOD 04/02/2024 9:58 AM [facility] Platelets 475(H) 130 - 400 K/mcL LAB HEMETOLOGY METHOD 04/02/2024 9:58 AM [facility] MPV 8.9 7.0 - 11.0 FL LAB HEMETOLOGY METHOD 04/02/2024 9:58 AM [facility] NRBC 0.0 <1.0 % LAB HEMETOLOGY METHOD 04/02/2024 9:58 AM EST [facility] NRBC Absolute 0.00 <0.10 K/mcL LAB HEMETOLOGY METHOD 04/02/2024 9:58 AM EST [facility] Blood Venous blood specimen / Unknown Venipuncture / Unknown 04/02/2024 5:24 AM EST 04/02/2024 8:59 AM EST us Yasmany Tsai MD LAB BLOOD ORDERABLES Final Resul t [facility] [address] [place] [address], documented in this encounter Visit Diagnoses Diagnosis Hyperlipidemia, unspecified Type 2 diabetes mellitus without complications (CMS/HCC) documented in this encounter Care Teams Automotive Starter Repairer Relationship Specialty Start Date End Date Brielle Barrientos MD [address] [place] [address] PCP - General Internal Medicine 01/11/24 documented as of this encounter
--- OUTSIDE RECORDS SUMMARY | 2024-05-20 16:28 | XMS_ITS | Continuity of Care Document ---
Author Organization [facility] Address [address] [place] [id number]- Care Team Providers Care Representative Phlebotomy Services Name Role Phone Floyd PLUMMER, Brielle Kaye Primary Care Physicia n [facility] [id number] Date(s): 03/04/24 - 05/02/24 [facility] [address] [place] [id number]- Attending Physician: Micah Ralph MD Admitting Physician: Micah Ralph MD Referring Physician: Brielle Barrientos MD Encounter Type: Pre Office Visit Allergies, Adverse Reactions, Alerts Substance Criticality Severity Reaction Reaction Severity Status Macrobid Active Medications acetaminophen 325 mg oral tablet 975 mg, By Mouth, 3 times a day, Refills 0, Maintenance, 03/31/24 8:12:00 AM EST, Partial fill upon patient request if the prescription is for a schedule II opioid drug. Start Date: 03/31/24 Status: Ordered Repeat number: 1 amLODIPine 5 mg oral tablet 5 mg, 1, tablet, By Mouth, Daily, # 30 tablet, Refills 0, Tot. Refills 0, Maintenance, 02/27/24 9:56:00 AM EST, Route to Pharmacy Electronically, [facility], Partial fill upon patient request if the prescription is for a schedule II opioid drug., 155, cm, 02/27/24 3:58:00 EST, Height,59.5, kg, 02/26/24 23:29:00 EST, Dry Weight Start Date: 02/27/24 Status: Ordered Quantity: 30.0 Unit: tablet Repeat number: 1 apixaban = 5 mg, By Mouth, 2 times a day, 0 Refills, Maintenance, 01/05/24 12:01:00 PM EDT, Tablet, Partial fill upon patient request if the prescription is for a schedule II opioid drug. Start Date: 01/05/24 Status: Ordered Repeat number: 1 aspirin 81 mg oral delayed release tablet 81 mg, By Mouth, Daily, # 30 tablet, Refills 2, Tot. Refills 2, Maintenance, 08/05/17 1:12:55 PM EDT, Route to Pharmacy Electronically, [facility] [id number] Start Date: 08/05/17 Status: Ordered Quantity: 30.0 Unit: tablet Repeat number: 3 atorvastatin 20 mg oral tablet 1 tablet = 20 mg, By Mouth, Daily, 0 Refills, Maintenance Start Date: 07/11/18 Status: Ordered Repeat number: 1 calcium (as carbonate)-vitamin D 600 mg-800 intl units oral tablet, chewable 1 tablet, Chew, 2 times a day, # 60 tablet, 0 Refills, Maintenance, 03/31/24 8:39:00 AM EST, Chew Tablet, Partial fill upon patient request if the prescription is for a schedule II opioid drug. Start Date: 03/31/24 Status: Ordered Quantity: 60.0 Unit: tablet Repeat number: 1 citalopram 10 mg oral tablet 1 tablet = 10 mg, By Mouth, Daily Start Date: 12/30/23 Status: Ordered Repeat number: 1 Compression Stockings See Instructions, # 1 each, Maintenance, surgical, knee length 30-40 mm Hg, 06/20/20 2:32:00 PM EDT, Supply Start Date: 06/20/20 Status: Ordered Quantity: 1.0 Unit: each Repeat number: 1 Entresto 24 mg-26 mg oral tablet 1 tablet, By Mouth, 2 times a day, 0 Refills, Maintenance, 06/02/20 1:09:00 PM EDT, Partial fill upon patient request if the prescription is for a schedule II opioid drug. Start Date: 06/02/20 Status: Ordered Repeat number: 1 fluticasone 50 mcg/inh nasal spray SHAKE LIQUID AND USE 1 SPRAY IN EACH NOSTRIL TWICE DAILY Start Date: 12/30/23 Status: Ordered Repeat number: 1 lactulose 10 gm/15 ml oral syrup 30 mL = 20 Gm, By Mouth, Daily Start Date: 12/30/23 Status: Ordered Repeat number: 1 latanoprost 0.005% ophthalmic solution INSTILL 1 DROP IN BOTH EYES EVERY NIGHT AT BEDTIME DIRECTED Start Date: 12/30/23 Status: Ordered Repeat number: 1 LORazepam 0.5 mg oral tablet TAKE 1 TABLET BY MOUTH DAILY NEEDED FOR ANXIETY OR SEVERE ANXIETY Start Date: 12/30/23 Status: Ordered Repeat number: 1 meclizine 12.5 mg oral tablet 1 tablet = 12.5 mg, By Mouth, Daily, PRN as needed, 0 Refills, Maintenance, 12/30/23 12:04:00 PM EDT, Tablet, Partial fill upon patient request if the prescription is for a schedule II opioid drug. Start Date: 12/30/23 Status: Ordered Repeat number: 1 Melatonin = 3 mg, By Mouth, Daily at bedtime, 0 Refills, Maintenance, 03/24/24 6:32:00 AM EST, Partial fill upon patient request if the prescription is for a schedule II opioid drug. Start Date: 03/24/24 Status: Ordered Repeat number: 1 Methimazole = 5 mg, By Mouth, Daily, 0 Refills, Maintenance, 03/24/24 6:31:00 AM EST, Partial fill upon patient request if the prescription is for a schedule II opioid drug. Start Date: 03/24/24 Status: Ordered Repeat number: 1 oxybutynin 10 mg/24 hr oral tablet, extended release 1 tablet = 10 mg, By Mouth, Daily Start Date: 12/30/23 Status: Ordered Repeat number: 1 senna 187 mg oral tablet 1 tablet = 8.6 mg, By Mouth, 2 times a day, PRN Constipation, 0 Refills, Maintenance, 03/31/24 8:15:00 AM EST, Tablet, Partial fill upon patient request if the prescription is for a schedule II opioiddrug. Start Date: 03/31/24 Status: Ordered Repeat number: 1 Vit B Complex/Vit C/Folate Capsule 1, capsule, By Mouth, Daily, Refills 0, Maintenance, 03/31/24 8:12:00 AM EST, Capsule, Partial fill upon patient request if the prescription is for a schedule II opioid drug. Start Date: 03/31/24 Status: Ordered Repeat number: 1 Problem List Condition Confirmation Course Effective Dates Status H ealth Status Informant At risk for aspiration Confirmed Active BPPV (benign paroxysmal positional vertigo) Confirmed Active CVA (cerebrovascular accident) Confirmed Active CKD (chronic kidney disease), stage IV Confirmed Active CHF (congestive heart failure) Confirmed Active Depression Confirmed Active Diabetes mellitus Confirmed Active JUAN F (generalized anxiety disorder) Confirmed Active Hyperglycemia due to diabetes mellitus Confirmed Active HTN (hypertension) Confirmed Active Urinary retention Confirmed Active Syncope Confirmed Active Patient Care team information Care Team Personnel Name: Adolfo Fernandez RN Position: [facility] RN Member Role: Primary Care Nurse Name: Yari Lee RN Position: [facility] RN Member Role: Primary Care Nurse Name: Oksana Worley RN Position: [facility] SN RN Member Role: Primary Care Nurse Name: Cosmo RN, Alexia Zaragoza Position: [facility] Onco RN Member Role: Primary Care Nurse Name: Teri Fisher RN Position: [facility] Hospital Radiation Monitor Member Role: Primary Care Nurse Name: Salud Dickinson RN Position: [facility] RN Member Role: Primary Care Nurse Name: Susan Maddox RN Position: [facility] RN Member Role: Primary Care Nurse Name: Mesfin Hubbard RN Position: [facility] RN Member Role: Primary Care Nurse Name: Maria Antonia Willett RN Position: [facility] RN Member Role: Primary Care Nurse Name: Madonna Parada RN Position: [facility] RN Member Role: Primary Care Nurse Name: Brielle Barrientos MD Position: Reference Physician Member Role: PCP Address: [address] [place] [id number] Telecom: Name: Oscar Lu MD Position: [facility] Renal MD Member Role: Lifetime Consulting Physician Address: [address] [place], [place] [id number] [facility] [place] [address]- Telecom: Name: Hemalatha Labm RN Position: [facility] RN Member Role: Primary Care Nurse Name: Emeterio Austin RN Position: [facility] RN Member Role: Primary Care Nurse Name: Pinky Araiza RN Position: [facility] RN Member Role: Primary Care Nurse Name: Nikita Espana RN Position: [facility] RN Member Role: Primary Care Nurse Name: Zamzam Benson RN Position: [facility] RN Member Role: Primary Care Nurse Name: Jeannie Ann RN Position: [facility] RN Member Role: Primary Care Nurse Care Team Related Persons Name: MELIZA HAZEL Name: PHILL HAZEL Insurance Providers Guarantor name: LAURA HAZEL Health Plan Information #: 1 Payer: [employer] Member Number: [id number] Policy Number: NA Group Number: [id number] Health Plan Information #: 2 Payer: [employer] Member Number: [id number] Policy Number: NA Group Number: [id number]
--- OUTSIDE RECORDS SUMMARY | 2024-05-20 16:28 | XMS_ITS | Encounter Summary ---
Author Organization [facility] Address [address] [place] [address] Care Team Providers Care Animal Surgeon Name Role Phone Brielle Barrientos MD Primary Care Pr ovider Reason for Visit * Reason Comments Hospital Follow-up Encounter Details Date Type Department Care Team ([facility] st Contact Info) Description 04/21/2024 1:00 PM EST Office Visit Adult Medicine [address] [phone] Brielle Barrientos MD [address] [place] [id number] Hospital discharge follow-up (Primary Dx); Closed displaced subtrochanteric fracture of left femur with routine healing, subsequent encounter; B12 deficiency; Primary hypertension; Age-related osteoporosis without current pathological fracture; CKD stage 3b, GFR 30-44 ml/min ([facility]); Other iron deficiency anemia; Generalized anxiety disorder Social History Tobacco Use Types Packs/Day Years Used Date Smoking Tobacco: Never Smokeless Tobacco: Never Tobacco Cessation:Counseling Given: Not Answered Alcohol Use Standard Drinks/Week Comments Never 0 [...] Sign Reading Time Taken Comments Blood Pressure 135/68 04/21/2024 1:27 PM EST Pulse 60 04/21/2024 1:27 PM EST Temperature 36.8 ??C (98.3 ??F) 04/21/2024 1:27 PM ES T Respiratory Rate 16 04/21/2024 1:27 PM EST Oxygen Saturation - - Inhaled Oxygen Concentration - - Weight - - Height 154.9 cm (5' 1 ) 04/21/2024 1:27 PM EST Body Mass Index - - documented in this encounter Patient Instructions * Attachments The following attachments cannot be sent through Care Everywhere. * Hip Fracture: Surgery: General Info (Australian) documented in this encounter Progress Notes * Brielle Barrientos MD - 04/21/2024 1:00 PM ESTAssociated Problem(s): B12 deficiency She has received several b12 injections. Will update B12 level. Orders: Vitamin B12; Future * Brielle Barrientos MD - 04/21/2024 1:00 PM ESTAssociated Problem(s): Primary hypertension Continue amlodipine 5mg daily. BP is stable at 135/68 * Brielle Barrientos MD - 04/21/2024 1:00 PM ESTAssociated Problem(s): Age-related osteoporosis without current pathological fracture Start vitamin D 2000U daily and Tums . Follow up with Dr. Wheeler. (Advised to reschedule missed appointment) * Brielle Barrientos MD - 04/21/2024 1:00 PM ESTAssociated Problem(s): CKD stage 3b, GFR 30-44 ml/min ([facility]) Stable. BUN/creatinine 23.38, estimated GFR 38 on 04/14/24 Continue follow up with nephrology * Brielle Barrientso MD - 04/21/2024 1:00 PM ESTAssociated Problem(s): Iron deficiency Stable. H/H on 04/14/24 9/29.4 Continue follow up with nephrology * Brielle Barrientos MD - 04/21/2024 1:00 PM ESTAssociated Problem(s): Generalized anxiety disorder Decrease citalopram to 5mg daily due to Qtc prolongation * Brielle Barrientos MD - 04/21/2024 1:00 PM EST Images from the original note were not included. TRANSITIONAL CARE MANAGEMENT NOTE Sherrill Easley is a 83 y.o. (: 1940) female presents today for a transitional care appointment. The patient was discharged with a diagnosis of: Fall with left hip intertrochanteric fracture, acute on chronic anemia Admit Date: 03/24/24 Discharge Date: 03/31/24 Date of Service: 04/21/2024 Facility: [facility] The discharge summary and/or Transitional Care Management documentation was reviewed. She was seen by me on 03/10/24. Patient is here with her daughter- Lita who provides translation She presented to the emergency department after fall. She was found to have a left hip fracture. Orthopedics was consulted. She is status post left hip INTERTAN on 03/25/2024. Thought to be a mechanical fall as she tripped and fell on a landscaping BRICK( her daughter tells me she was trying to unload groceries at a grocery store parking lot and tripped) Hospitalization was complicated by acute on chronic anemia which required transfusion. ECG showed QTc 489. Afib with PVCs, left axis deviation (03/24/24) She is to follow-up with in 4-5 weeks and follow-up with [facility] 2 weeks after discharge for postop/staple removal. She had a CT scan of the head/cervical spine which showed no acute findings. 2.7 cm right and 2.2 cm left thyroid nodules. Thyroid ultrasound recommended. (This was noted on previous CT scans and she has already had US thyroid done in Feb 2024 which showed- Heterogenous lower pole thyroid lesions, low suspicious for malignancy. Recommend one-year follow-up.) The x-ray of the left femur done showed moderate osteopenia as well as the 3 part intertrochantericfracture of the proximal left femur with moderate varus angulation and medial displacement of the lesser troches. Mild degenerative changes of the hips bilaterally in his lower lumbar spine. She received 1 dose of IV iron on 03/27/2024. Received 3 units of PRBCs with the last transfusion on Recommendation is for repeat CBC in 2 weeks. Daughter states she received t b12 injection while in the hospital at [facility]. Discharge CBC H/H 11/09.8, platelet count 331. WBC 6.3. MCV 87.7 She was discharged to Rehab at [facility] from 03/31/24 to 04/16/24 Had labs done on 04/14/24 while at rehab H/H is stable at 12/15.4 BUN/creatinine 10/04.38, estimated GFR 38 Today, patient's daughter reports patient has been using tylenol 500mg TID. This helps with pain. Not on any narcotics. She is still not weight bearing on the left hip. Using a wheelchair for ambulation. Daughter is requesting a transport wheelchair to help move her around. She is currently using her 's wheelchair. Daughter reports that she had an initial home visit to set up home PT/OT/visiting nurse. There is another visit set up for this Sunday(04/23/24) She was previously scheduled for outpatient PT/OT/speech therapy for weakness after her CVA but this is all on hold until she recovers from the hip fracture She has an appt with [facility] for post-op follow up on 04/29/24 The liana from her hip were removed in rehab She has osteoporosis. She was previously on prolia but didn't get any injections last year (was previously seen at [facility]. Her population geneticist left the practice. She had an appt with Dr. Wheeler last month which she had to cancel because she was in rehab Daughter states that at rehab, she was getting Citalopram 10mg. This was decreased to 5mg at our last visit due to QTc prolongation. Daughter will decrease dose to 5mg from today Additionally, she is on amlodipine 5mg daily. Never started on amlodipine 7.5mg daily which was recommended at last visit due to high blood pressure. She states her mechanic marine engine instructed her not togo up on the dose. BP is 135/68 today She has vitamin D3 2000U at home and will start using this. Also has Tums (Calcium) which she will use as well. At the rehab she was getting a daily MV and Ca+ Vitamin D . Daughter is asking for clarification on what dose to use and she is advised the Tums and vitamin D 2000U is appropriate. All her other medications are unchanged and as listed in the medication list Patient Care Team: Brielle Barrientos MD as PCP - General (Internal Medicine) Lulu Casas LCSW as Residential Aide Patient Active Problem List Diagnosis Age-related osteoporosis without current pathological fracture Cerebrovascular accident (CVA) due to thrombosis of right middle cerebral artery (CMS/HCC) Hyperlipidemia LDL goal <70 CKD stage 3b, GFR 30-44 ml/min (CMS/HCC) Chronic constipation Skin lesion of face Dilated cardiomyopathy (CMS/HCC) Paroxysmal atrial fibrillation (CMS/HCC) Primary open angle glaucoma (POAG) of both eyes Generalized anxiety disorder Allergic rhinitis Subclinical hyperthyroidism Anemia of chronic renal failure, stage 3b (CMS/HCC) Iron deficiency B12 deficiency Urge incontinence Type 2 diabetes mellitus with diabetic microalbuminuria, without long-term current use of insulin ([facility]) Itchy eyes Stenosis of both vertebral arteries History of breast cancer Varicose veins of bilateral lower extremities with other complications Benign paroxysmal positional vertigo due to bilateral vestibular disorder Primary osteoarthritis involving multiple joints Thyroid lesion Left bundle branch block Right internal carotid artery aneurysm Primary insomnia Primary hypertension Facet arthropathy, lumbar Spinal stenosis of lumbar region without neurogenic claudication Osteoarthritis of spine with radiculopathy, lumbar region Basal cell carcinoma (BCC) of skin of face Allergies Allergen Reactions Macrobid [Nitrofurantoin Monohyd/M-Cryst] Current Outpatient Medications Medication Sig Dispense Refill acetaminophen (TYLENOL 8 [...] day in the morning. 45 tablet 1 denosumab (PROLIA) 60 mg/mL syringe syringe Inject [...] day in the morning. 10 mL 1 latanoprost (XALATAN) 0.005 % ophthalmic solution Administer [...] by mouth 1 (one) time each day. oxyBUTYnin XL (DITROPAN-XL) 10 mg 24 hr tablet Take 1 tablet (10 mg total) by mouth 1 (one) time each day. Do not crush, chew, or split. 90 each 1 sacubitriL-valsartan (ENTRESTO) 24-26 mg per tablet Take 1 tablet by mouth 2 (two) times a day. lactulose (CHRONULAC) solution Take 15 mL (10 g total) by mouth 1 (one) time each day if needed (constipation). Current Facility-Administered Medications Medication Dose Route Frequency Provider Last Rate Last Admin cyanocobalamin (VITAMIN B-12) injection 1,000 mcg 1,000 mcg intramuscular q30 days Brielle Barrientos MD 1,000 mcg at 02/13/24 1602 Past Medical History: Diagnosis Date Arthropathy DX:Arthropathy;COMMENT:of the knee/patella/tibia/fibula Breast cancer ([facility]) DX:Breast cancer ([facility]);COMMENT:stage l infiltrating ductal carcinoma Chronic kidney disease DX:Chronic kidney disease;COMMENT:chronic kidney disease Diabetes mellitus ([facility]) DX:Diabetes mellitus ([facility]);COMMENT:diabetic nephropathy Past Surgical History: Procedure Laterality Date APPENDECTOMY PROCEDURE: HISTORICAL APPENDECTOMY CAROTID ENDARTERECTOMY Right 2020 PROCEDURE: HISTORICAL CAROTID ENDART MASTECTOMY PROCEDURE:MASTECTOMY MASTECTOMY Right 2012 PROCEDURE: HISTORICAL MASTECTOMY OTHER SURGICAL HISTORY 2006 PROCEDURE: HISTORICAL CA BASAL CELL Social History Tobacco Use Smoking status: Never Smokeless tobacco: Never Substance Use Topics Alcohol use: Never Drug use: Never No family history on file. Immunization History Administered Date(s) Administered COVID-19 (Moderna/Spikevax) 12yo and older 04/06/2023, 04/14/2024 Moderna (age 6mo & older) Bivalent, COVID-19, 0.5 mL or 0.25 mL dosage 12/13/2021 Moderna SARS-CoV-2 COVID-19, mRNA, LNP-S, preservative free 04/26/2020, 05/24/2020, 01/24/2021, 07/20/2021 Review of Systems As noted in HPI Objective BP 135/68 Pulse 60 Temp 36.8 ??C (98.3 ??F) (Temporal) Resp 16 Ht 1.549 m (61 ) BMI 25.51kg/m?? Physical Exam Constitutional: General: She is not in acute distress. Appearance: Normal appearance. She is normal weight. HENT: Head: Normocephalic and atraumatic. Cardiovascular: Rate and Rhythm: Normal rate. Rhythm irregular. Pulses: Normal pulses. Heart sounds: Normal heart sounds. Pulmonary: Effort: Pulmonary effort is normal. No respiratory distress. Breath sounds: Normal breath sounds. No wheezing. Abdominal: General: There is no distension. Palpations: Abdomen is soft. Tenderness: There is no abdominal tenderness. Musculoskeletal: Comments: non pitting bl ankle/pedal edema; varicose veins in both legs Skin: Comments: 3 well healed small scars on the left lateral hip Neurological: General: No focal deficit present. Mental Status: She is alert and oriented to person, place, and time. Gait: Gait abnormal. Psychiatric: Mood and Affect: Mood normal. Behavior: Behavior normal. Assessment & Plan Hospital discharge follow-up Closed displaced subtrochanteric fracture of left femur with routine healing, subsequent encounter Follow up with [facility] on 04/29/24 as scheduled Hopefully she can start home PT/OT this week B12 deficiency She has received several b12 injections. Will update B12 level. Orders: Vitamin B12; Future Primary hypertension Continue amlodipine 5mg daily. BP is stable at 135/68 Age-related osteoporosis without current pathological fracture Start vitamin D 2000U daily and Tums . Follow up with Dr. Wheeler. (Advised to reschedule missed appointment) CKD stage 3b, GFR 30-44 ml/min ([facility]) Stable. BUN/creatinine 23/1.38, estimated GFR 38 on 04/14/24 Continue follow up with nephrology Other iron deficiency anemia Stable. H/H on 04/14/24 9/29.4 Continue follow up with nephrology Generalized anxiety disorder Decrease citalopram to 5mg daily due to Qtc prolongation The complexity of medical decision making for this patient's transitional care is moderate. As part of the TCM, I have: Reviewed discharge information, I.e.: discharge summary or [id number] documents, Reviewed the patient's need for, or follow-up on, diagnostic tests and treatments,and Interacted with other health personal care worker who may assume or reassume care of the patient's system- specific problems Brielle Barrientos MD ADULT MEDICINE [address] Dept: [phone] Dept documented in this encounter Plan of Treatment Upcoming Encounters Date Type Department Care Team (Late st Contact Info) Description 05/23/2024 11:45 AM EST Appointment Bone Density - [address] [phone] 05/26/2024 3:00 PM EDT Consult Endocrinology - [address] [phone] Irina Wheeler MD [address] [place] [phone] 08/22/2024 10:30 AM EDT Office Visit [address] [phone] Melanie Mata PA [address] [place] [address] 01/22/2025 10:15 AM EST Office Visit [facility] Hematology Oncology [address] [place] [phone] Hong Verma MD [address] [place] [address] documented as of this encounter Goals Goal [...] dressing - Met Pt to increase L air conditioning technician strength to >= 35# to be able [...] for light IADLs Pt to demo increased air conditioning technician strength >= 40# to be able to cut tough foods Pt to perform HEP MOD I documented as of this encounter Results * Vitamin B12 (04/21/2024 2:50 PM EST) Pathologist [facility] Vitamin B-12 679 250 - 900 pcg/mL LAB CHEMISTRY METHOD 04/21/2024 7:17 PM EST [facility] Blood Venous blood specimen / Unknown Venipuncture / Unknown 04/21/2024 2:50 PM EST 04/21/2024 2:50 PM EST Brielle Barrientos MD LAB BLOOD ORDERA BLES Final Result [facility] [address] [place] [address], [place] [phone] documented in this encounter Visit Diagnoses Diagnosis Hospital discharge follow-up- Primary Other follow-up examination Closed displaced subtrochanteric fracture of left femur with routine healing, subsequent encounter B12 deficiency Primary hypertension Unspecified essential hypertension Age-related osteoporosis without current pathological fracture CKD stage 3b, GFR 30-44 ml/min ([facility]) Other iron deficiency anemia Generalized anxiety disorder documented in this encounter Discontinued Medications Medication Sig Discontinue Reason Start Date End Da te amLODIPine (NORVASC) 2.5 mg tabletIndications:Primary hypertension Take 1 tablet (2.5 mg total) by mouth 1 (one) time each day. Non-compliance 03/10/2024 04/21/2024 documented as of this encounter Historical Medications * This list may reflect changes made after this encounter. lactulose (CHRONULAC) solution Take 15 mL (10 g total) by mouth 1 (one) time each day if needed (constipation ). 04/21/2024 added in this encounter Care Teams Animal Surgeon Relationship Specialty Start Date End Date Brielle Barrientos MD [address] [place] [id number] PCP - General Internal Medicine 01/11/24 documented as of this encounter
--- OUTSIDE RECORDS SUMMARY | 2024-05-20 16:28 | XMS_ITS | Encounter Summary ---
Author Organization [facility] Address [address] [place] [address] Care Team Providers Care Drug Safety Coordinator Name Role Phone Brielle Barrientos MD Primary Care Pr ovider Reason for Visit * Reason Onset Date Comments Referral 05/19/2024 Dr Maria Del Rosario Bell - Neurologist Encounter Details Date Type Department Care Team (Late st Contact Info) Description 05/19/2024 Telephone Adult Medicine [address] [phone] Brielle Barrientos MD [address] [place] [phone] Referral (Dr Maria Del Rosario Bell - Neurologist) Social History Tobacco Use Types Packs/Day Years [...] as of this encounter Progress Notes * Danna Cerda RN - 05/19/2024 5:11 PM EST Last ov and labs faxed per request office should let us know if insurance referral needed * Teri Cornejo - 05/19/2024 4:47 PM EST Patient daughter Lita is calling in for patient. States her mother was called about a cancellation with Dr. Maria Del Rosario Bell's office for tomorrow 05/20/24 and she has taken the appointment She isn't sure if an insurance referral is needed however she is asking that her last office notes,or test results be sent to the provider office at [phone]. Referral Request: What insurance does the patient have today? Payor: [employer] / Plan: [facility] MEDICARE ADVANTAGE / Product Type: *No Product type* / Referrals cannot be processed if the insurance is not accurate. If the insurance listed above in red is NO BILLING INFORMATION FOUND FOR THIS ENCOUTNER The patients correct insurance must be obtained and registered in [facility] or their referral can not be processed. Is this a retro request? no. If yes for what date of service do you need the retro referral? not applicable Who is calling to request this referral? The patient daughter Lita If the caller is not the patient, what is their name? not applicable Ask the patient WHO referred them to this specialty: Patient saw Dr Barrientos at [facility] for the problem and was told if symptoms did not resolve or worsen they would refer them to this specialty FIRST and LAST NAME of SPECIALIST PATIENT is seeing: Dr Maria Del Rosario Bell What specialty is this? Neurologist DIAGNOSIS Patient is being seen for (Not a body part or a procedure): stroke back in 12/2023 Have you seen this SPECIALIST for this PROBLEM/DX before? If YES, when? No Have you checked REVIEW or the APPT DESK to see if this referral has already been done or has visits left? yes Is this visit: Initial Visit Address of Specialist: [address] [place] [address] Phone # of Specialist: [phone] Fax #: (if applicable): [phone] Does patient have an appointment scheduled?: yes 05/20/2024 Date of appointment- (including a retro-request): 05/20/2024 Is this appointment related to: Not MVA, worker compensation, or surgery related documented in this encounter Plan of Treatment Upcoming Encounters Date Type Department Care Team (Late st Contact Info) Description 05/23/2024 11:45 AM EST Appointment Bone Density - [address] [phone] 05/26/2024 3:00 PM EDT Consult Endocrinology - [address] [phone] Irina Wheeler MD [address] [place] [phone] 08/22/2024 10:30 AM EDT Office Visit Adult Medicine [address] [phone] Melanie Mata PA [address] [place] [address] 01/22/2025 10:15 AM EST Office Visit [facility] Hematology Oncology [address] [place] [phone] Hong Verma MD [address] [place] [address] documented as of this encounter Goals Goal Patient Goal Type Associated Problems Recent Progress Patient-Stated? Author Pt goals General On track( 024 3:53 PM EST) Yes James Johnson, OT Note: Get back to cooking and cleaning like she did before OT STG 6-8 visits General On track( 024 2:13 PM EST) No James Johnson, OT Note: Pt to identify 1-2 adaptive tech/equipment to increase I with ADLs, IADLs - Met Pt to increase wrist ext to >= 30* to improved I with dressing - Met Pt to increase L monitor and storage bin tender strength to >= 35# to be able to use L UE to cut soft foods - progressing toward goal Pt to increase L sh flex AROM >= 120* to increase independence in dressing - progressing toward goal Pt to perform initial HEP MOD I - Met OT LTG 12 visits General On track( 024 3:52 PM EST) Yes James Johnson, OT Note: Pt will demo improved L UE AROM WFL for light IADLs Pt to demo increased monitor and storage bin tender strength >= 40# to be able to cut tough foods Pt to perform HEP MOD I documented as of this encounter Visit Diagnoses Not on filedocumented in this encounter Care Teams Drug Safety Coordinator Relationship Specialty Start Date End Date Brielle Barrientos MD [address] [place] [phone] PCP - General Internal Medicine 01/11/24 documented as of this encounter
--- OUTSIDE RECORDS SUMMARY | 2024-05-20 16:28 | XMS_ITS | Encounter Summary ---
Author Organization [facility] Address [address] [place] [address] Care Team Providers Care Consumer Recruiter Name Role Phone Brielle Barrientos MD Primary Care Pr ovider Encounter Details Date Type Department Care Team (Late Contact Info) Description 04/12/2024 Lab Requisition [facility] - Main Lab 299 [facility] [place] [address] Yasmany Tsai MD [address] [place] [address], [phone] Hyperlipidemia, unspecified; Type 2 diabetes mellitus [...] 11:45 AM EST Appointment Bone Density - [address] [phone] 05/26/2024 3:00 PM EDT Consult Endocrinology - [address] [phone] Irina Wheeler MD [address] [place] [address] 08/22/2024 10:30 AM EDT Office Visit Adult Medicine [address] [phone] Melanie Mata PA [address] [place] [address] 01/22/2025 10:15 AM EST Office Visit [facility] Hematology Oncology [address] [place] [phone] Hong Verma MD [address] [place] [address] documented as of this encounter Goals Goal [...] dressing - Met Pt to increase L keno dealer strength to >= 35# to be able [...] for light IADLs Pt to demo increased keno dealer strength >= 40# to be able to cut tough foods Pt to perform HEP MOD I documented as of this encounter Procedures Procedure Name Priority Date/Time Associated Diagnosis Comments CBC WITH AUTO DIFFERENTIAL Routine 04/14/2024 7:07 AM EST Hyperlipidemia, unspecified Type 2 diabetes mellitus without complications (CMS/HCC) CBC AND DIFFERENTIAL Routine 04/14/2024 7:07 AM EST Hyperlipidemia, unspecified Type 2 diabetes mellitus without complications (CMS/HCC) BASIC METABOLIC PANEL Routine 04/14/2024 7:07 AM EST Hyperlipidemia, unspecified Type 2 diabetes mellitus without complications (CMS/HCC) documented in this encounter Results * (ABNORMAL) CBC auto differential (04/14/2024 7:07 AM EST) WBC 5.2 4.8 - 10.8 K/mcL LAB HEMETOLOGY METHOD 04/14/2024 1:34 PM [facility] RBC 3.10(L) 3.80 - 4.80 M/mcL LAB HEMETOLOGY METHOD 04/14/2024 1:34 PM [facility] Hemoglobin 9.0(L) 11.5 - 16.0 g/dL LAB HEMETOLOGY METHOD 04/14/2024 1:34 PM [facility] Hematocrit 29.4(L) 35.0 - 47.0 % LAB HEMETOLOGY METHOD 04/14/2024 1:34 PM [facility] MCV 94.8 79.0 - 98.0 FL LAB HEMETOLOGY METHOD 04/14/2024 1:34 PM [facility] MCH 29.0 27.0 - 32.0 pcg LAB HEMETOLOGY METHOD 04/14/2024 1:34 PM [facility] MCHC 30.6(L) 32.0 - 37.0 g/dL LAB HEMETOLOGY METHOD 04/14/2024 1:34 PM [facility] RDW 18.2(H) 11.0 - 15.0 % LAB HEMETOLOGY METHOD 04/14/2024 1:34 PM [facility] Platelets 407(H) 130 - 400 K/mcL LAB HEMETOLOGY METHOD 04/14/2024 1:34 PM [facility] MPV 9.4 7.0 - 11.0 FL LAB HEMETOLOGY METHOD 04/14/2024 1:34 PM [facility] NRBC 0.0 <1.0 % LAB HEMETOLOGY METHOD 04/14/2024 1:34 PM [facility] NRBC Absolute 0.00 <0.10 K/mcL LAB HEMETOLOGY METHOD 04/14/2024 1:34 PM [facility] Neutrophils Relative 43.6 % LAB HEMETOLOGY METHOD 04/14/2024 1:34 PM [facility] Lymphocytes Relative 41.6 % LAB HEMETOLOGY METHOD 04/14/2024 1:34 PM [facility] Monocytes Relative 8.0 % LAB HEMETOLOGY METHOD 04/14/2024 1:34 PM [facility] Eosinophils Relative 5.6 % LAB HEMETOLOGY METHOD 04/14/2024 1:34 PM [facility] Basophils Relative 0.8 % LAB HEMETOLOGY METHOD 04/14/2024 1:34 PM [facility] Immature Granulocytes Relative 0.4 % LAB HEMETOLOGY METHOD 04/14/2024 1:34 PM [facility] Neutrophils Absolute 2.25 1.50 - 7.00 K/mcL LAB HEMETOLOGY METHOD 04/14/2024 1:34 PM [facility] Lymphocytes Absolute 2.14 1.00 - 5.00 K/mcL LAB HEMETOLOGY METHOD 04/14/2024 1:34 PM [facility] Monocytes Absolute 0.41 0.20 - 1.00 K/mcL LAB HEMETOLOGY METHOD 04/14/2024 1:34 PM [facility] Eosinophils Absolute 0.29 0.00 - 0.50 K/[facility] LAB HEMETOLOGY METHOD 04/14/2024 1:34 PM EST [facility] Basophils Absolute 0.04 0.00 - 0.20 K/[facility] LAB HEMETOLOGY METHOD 04/14/2024 1:34 PM [facility] Immature Granulocytes Absolute 0.02 0.00 - 0.03 K/[facility] LAB HEMETOLOGY METHOD 04/14/2024 1:34 PM EST [facility] Blood Venous blood specimen / Unknown Venipuncture / Unknown 04/14/2024 7:07 AM EST 04/14/2024 10:53 AM EST us Yasmany Tsai MD LAB BLOOD ORDERABLES Final Resul t [facility] [address] [place] [address], [place] [phone] * (ABNORMAL) Basic metabolic panel (04/14/2024 7:07 AM EST) Sodium 140 133 - 145 mmol/L LAB CHEMISTRY METHOD 04/14/2024 12:51 PM [facility] Potassium 4.6 3.5 - 5.5 mmol/L LAB CHEMISTRY METHOD 04/14/2024 12:51 PM [facility] Chloride 109 96 - 110 mmol/L LAB CHEMISTRY METHOD 04/14/2024 12:51 PM [facility] CO2 26 21 - 32 mmol/L LAB CHEMISTRY METHOD 04/14/2024 12:51 PM [facility] Anion Gap 5 3 - 11 LAB CHEMISTRY METHOD 04/14/2024 12:51 PM [facility] Glucose 84 70 - 100 mg/dL LAB CHEMISTRY METHOD 04/14/2024 12:51 PM [facility] BUN 23 5 - 25 mg/dL LAB CHEMISTRY METHOD 04/14/2024 12:51 PM [facility] Creatinine 1.38(H) 0.50 - 1.10 mg/dL LAB CHEMISTRY METHOD 04/14/2024 12:51 PM [facility] eGFR 38(L) >=60 mL/min/1. 73m2 LAB CHEMISTRY METHOD 04/14/2024 12:51 PM [facility] Comment:Calculation based on the??Chronic Kidney Disease Epidemiology Collaboration (CKD-EPI) equation refit??without adjustment for race. BUN/Creatinine Ratio 16.7 LAB CHEMISTRY METHOD 04/14/2024 12:51 PM [facility] Calcium 9.3 8.5 - 10.5 mg/dL LAB CHEMISTRY METHOD 04/14/2024 12:51 PM [facility] Blood Venous blood specimen / Unknown Venipuncture / Unknown 04/14/2024 7:07 AM EST 04/14/2024 10:53 AM EST us Yasmany Tsai MD LAB BLOOD ORDERABLES Final Resul t [facility] [address] [place] [address], documented in this encounter Visit Diagnoses Diagnosis Hyperlipidemia, unspecified Type 2 diabetes mellitus without complications (CMS/HCC) documented in this encounter Care Teams Consumer Recruiter Relationship Specialty Start Date End Date Brielle Barrientos MD [address] [place] [address] PCP - General Internal Medicine 01/11/24 documented as of this encounter
--- OUTSIDE RECORDS SUMMARY | 2024-05-20 16:28 | XMS_ITS | Encounter Summary ---
Author Organization [facility] Address [address] [place] [address] Care Team Providers Care Cementer Hand Name Role Phone Brielle Barrientos MD Primary Care Pr ovider Encounter Details Date Type Department Care Team (Late Contact Info) Description 04/19/2024 Lab Requisition [facility] - Main Lab 299 [facility] [place] [address] Yasmany Tsai MD [address] [place] [address], [phone] Hyperlipidemia, unspecified; Type 2 diabetes mellitus [...] 11:45 AM EST Appointment Bone Density - [address] [phone] 05/26/2024 3:00 PM EDT Consult Endocrinology - [address] [phone] Irina Wheeler MD [address] [place] [address] 08/22/2024 10:30 AM EDT Office Visit Adult Medicine [address] [phone] Melanie Mata PA [address] [place] [address] 01/22/2025 10:15 AM EST Office Visit [facility] Hematology Oncology [address] [place] [phone] Hong Verma MD [address] [place] [address] documented as of this encounter Goals Goal [...] dressing - Met Pt to increase L woods boss strength to >= 35# to be able [...] for light IADLs Pt to demo increased woods boss strength >= 40# to be able to cut tough foods Pt to perform HEP MOD I documented as of this encounter Visit Diagnoses Diagnosis Hyperlipidemia, unspecified Type 2 diabetes mellitus without complications ([facility]/HCC) documented in this encounter Care Teams Cementer Hand Relationship Specialty Start Date End Date Brielle Barrientos MD [address] [place] [phone] PCP - General Internal Medicine 01/11/24 documented as of this encounter
--- OUTSIDE RECORDS SUMMARY | 2024-05-20 16:28 | XMS_ITS | Encounter Summary ---
Author Organization [facility] Address [address] [place] [address] Care Team Providers Care Program Consultant Name Role Phone Brielle Barrientos MD Primary Care Pr ovider Reason for Visit * Reason Comments HOME HEALTH CERTIFICATION AND PLAN OF CA RE Start of Care Date: 04/18/2024Date of certification period: 04/18/24-06/16/24Date of service = signature date 05/01/2024Hospice patient: [facility] Care Agency: [address] [place] [id number]#[phone]#[phone] Encounter Details Date Type Department Care Team (Late st Contact Info) Description 05/10/2024 Billing Patient Not Present Adult Medicine [address] [address] Brielle Barrientos MD [address] [place] [address] Closed fracture of neck of left femur with routine healing (Primary Dx); 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); 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/HCC); Chronic diastolic (congestive) heart failure (CMS/HCC); Type 2 diabetes mellitus with diabetic chronic kidney disease, unspecified CKD stage, unspecified whether medical terminologist insulin use (CMS/HCC); Thyrotoxicosis without thyroid storm, unspecified thyrotoxicosis type; Uncomplicated asthma, unspecified asthma severity, unspecified whether persistent; Anxiety disorder, unspecified type; Depression, unspecified depression type; Atrial fibrillation, unspecified type (CMS/HCC); Thrombocytosis; Hyperlipidemia, unspecified hyperlipidemia type; long-term (current) use of anticoagulants; 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; Long-term current use of opiate analgesic Social History Tobacco Use Types Packs/Day Years [...] as of this encounter Progress Notes * Ashley Jones MA - 05/10/2024 9:42 PM EST [facility] CERTIFICATION AND PLAN OF CARE FROM 04/18/24-06/16/24 SIGNED,FAXED,CONFIRMATION RECEIVED,BILLED,SCANNED documented in this encounter Plan of Treatment Upcoming Encounters Date Type Department Care Team (Late st Contact Info) Description 05/23/2024 11:45 AM EST Appointment Bone Density - [address] [phone] 05/26/2024 3:00 PM EDT Consult Endocrinology - [address] [phone] Irina Wheeler MD [address] [place] [phone] 08/22/2024 10:30 AM EDT Office Visit Adult Medicine [address] [phone] Melanie Mata PA [address] [place] [address] 01/22/2025 10:15 AM EST Office Visit [facility] Hematology Oncology [address] [place] [address] Hong Verma MD [address] [place] [address] documented as of this encounter Goals Goal [...] dressing - Met Pt to increase L french polisher strength to >= 35# to be able [...] for light IADLs Pt to demo increased french polisher strength >= 40# to be able to cut tough foods Pt to perform HEP MOD I documented as of this encounter Visit Diagnoses Diagnosis Closed fracture of neck of left femur with routine healing- Primary Hemiplga following cerebral infrc affecting left nondom side ([facility]/HCC) 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) Unspecified hypertensive heart and kidney disease with heart failure and with chronic kidney disease stage I through stage IV, or unspecified Chronic diastolic (congestive) heart failure ([facility]) Type 2 diabetes mellitus with diabetic chronic kidney disease, unspecified CKD stage, unspecified whether medical terminologist insulin use ([facility]) Thyrotoxicosis without thyroid storm, unspecified thyrotoxicosis type Uncomplicated asthma, unspecified asthma severity, unspecified whether persistent Anxiety disorder, unspecified type Depression, unspecified depression type Atrial fibrillation, unspecified type (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
--- OUTSIDE RECORDS SUMMARY | 2024-05-20 16:28 | XMS_ITS | Encounter Summary ---
Author Organization [facility] Address [address] [place] [address] Care Team Providers Care Assisted Living Manager Name Role Phone Brielle Barrientos MD Primary Care Pr ovider Encounter Details Date Type Department Care Team (Late st Contact Info) Description 04/05/2024 Lab Requisition [facility] - Main Lab 299 [facility] [place] [address] Yasmany Tsai MD [address] [place] [address], [phone] Essential (primary) hypertension; Hyperlipidemia, unspecified; Type 2 diabetes mellitus without [...] 11:45 AM EST Appointment Bone Density - [address] [phone] 05/26/2024 3:00 PM EDT Consult Endocrinology - [address] [phone] Irina Wheeler MD [address] [place] [address] 08/22/2024 10:30 AM EDT Office Visit Adult Medicine [facility] [address] [place] [phone] Melanie Mata PA [address] [place] [address] 01/22/2025 10:15 AM EST Office Visit [facility] Hematology Oncology [address] [place] [phone] Hong Verma MD [address] [place] [address] documented as of this encounter Goals Goal [...] dressing - Met Pt to increase L weighing station operator strength to >= 35# to be able [...] for light IADLs Pt to demo increased weighing station operator strength >= 40# to be able to cut tough foods Pt to perform HEP MOD I documented as of this encounter Procedures Procedure Name Priority Date/Time Associated Diagnosis Comments LIPID PANEL WITH REFLEX TO DIRECT LDL Routine 04/07/2024 7:30 AM EST Essential (primary) hypertension Hyperlipidemia, unspecified Type 2 diabetes mellitus without complications (CMS/HCC) IRON AND TIBC Routine 04/07/2024 7:30 AM EST Essential (primary) hypertension Hyperlipidemia, unspecified Type 2 diabetes mellitus without complications (CMS/HCC) COMPLETE BLOOD COUNT Routine 04/07/2024 7:30 AM EST Essential (primary) hypertension Hyperlipidemia, unspecified Type 2 diabetes mellitus without complications (CMS/HCC) THYROID STIMULATING HORMONE Routine 04/07/2024 7:30 AM EST Essential (primary) hypertension Hyperlipidemia, unspecified Type 2 diabetes mellitus without complications (CMS/HCC) THYROXINE TOTAL Routine 04/07/2024 7:30 AM EST Essential (primary) hypertension Hyperlipidemia, unspecified Type 2 diabetes mellitus without complications (CMS/HCC) HEMOGLOBIN A1C Routine 04/07/2024 7:30 AM EST Essential (primary) hypertension Hyperlipidemia, unspecified Type 2 diabetes mellitus without complications (CMS/HCC) BASIC METABOLIC PANEL Routine 04/07/2024 7:30 AM EST Essential (primary) hypertension Hyperlipidemia, unspecified Type 2 diabetes mellitus without complications (CMS/HCC) documented in this encounter Results * Hemoglobin A1c (04/07/2024 7:30 AM EST) Hemoglobin A1C 5.6 <6.5 % LAB CHEMISTRY METHOD 04/07/2024 6:39 PM EST [facility] Mean Bld Glu Estim. 114 mg/dL LAB CHEMISTRY METHOD 04/07/2024 6:39 PM EST [facility] Blood Venous blood specimen / Unknown Venipuncture / Unknown 04/07/2024 7:30 AM EST 04/07/2024 11:46 AM EST us Yasmany Tsai MD LAB BLOOD ORDERABLES Final Resul t Performing Organization Address City/[facility]/ZIP Co de Phone Number [facility] [address] [place] [address], [place] [phone] * Iron and TIBC (04/07/2024 7:30 AM EST) Iron 46 40 - 150 mcg/dL LAB CHEMISTRY METHOD 04/07/2024 3:05 PM EST [facility] TIBC 267 250 - 450 mcg/dL LAB CHEMISTRY METHOD 04/07/2024 3:05 PM EST [facility] Iron Saturation 17 15 - 50 % LAB CHEMISTRY METHOD 04/07/2024 3:05 PM EST [facility] Blood Venous blood specimen / Unknown Venipuncture / Unknown 04/07/2024 7:30 AM EST 04/07/2024 11:46 AM EST us Yasmany Tsai MD LAB BLOOD ORDERABLES Final Resul t Performing Organization Address City/[facility]/ZIP Co de Phone Number [facility] [address] [place] [address], [place] [phone] * Thyroxine total (04/07/2024 7:30 AM EST) T4, Total 6.3 4.5 - 10.9 mcg/dL LAB CHEMISTRY METHOD 04/07/2024 3:17 PM EST [facility] Blood Venous blood specimen / Unknown Venipuncture / Unknown 04/07/2024 7:30 AM EST 04/07/2024 11:46 AM EST us Yasmany Tsai MD LAB BLOOD ORDERABLES Final Resul t [facility] [address] [place] [address], [place] [phone] * Thyroid stimulating hormone (04/07/2024 7:30 AM EST) TSH 2.81 0.40 - 4.00 mcIU/mL LAB CHEMISTRY METHOD 04/07/2024 3:12 PM EST [facility] Blood Venous blood specimen / Unknown Venipuncture / Unknown 04/07/2024 7:30 AM EST 04/07/2024 11:46 AM EST Yasmany Tsai MD LAB BLOOD ORDERABLES Final Resul t [facility] [address] [place] [address], [place] [phone] * Lipid panel with reflex to direct LDL (04/07/2024 7:30 AM EST) [facility] Cholesterol 106 0 - 200 mg/dL LAB CHEMISTRY METHOD 04/07/2024 3:27 PM [facility] Triglycerides 46 0 - 150 mg/dL LAB CHEMISTRY METHOD 04/07/2024 3:27 PM [facility] HDL 45 >=40 mg/dL LAB CHEMISTRY METHOD 04/07/2024 3:27 PM [facility] LDL Calculated 52 0 - 100 mg/dL LAB CHEMISTRY METHOD 04/07/2024 3:27 PM [facility] VLDL Cholesterol Bhupinder 9.2 mg/dL LAB CHEMISTRY METHOD 04/07/2024 3:27 PM [facility] Non HDL Chol. (LDL+VLDL) 61 <145 mg/dL LAB CHEMISTRY METHOD 04/07/2024 3:27 PM [facility] Chol/HDL Ratio 2.4 0.0 - 4.4 LAB CHEMISTRY METHOD 04/07/2024 3:27 PM [facility] Blood Venous blood specimen / Unknown Venipuncture / Unknown 04/07/2024 7:30 AM EST 04/07/2024 11:46 AM EST us Yasmany Tsai MD LAB BLOOD ORDERABLES Final Resul t [facility] [address] [place] [address], * (ABNORMAL) Basic metabolic panel (04/07/2024 7:30 AM EST) Sodium 141 133 - 145 mmol/L LAB CHEMISTRY METHOD 04/07/2024 3:05 PM [facility] Potassium 4.9 3.5 - 5.5 mmol/L LAB CHEMISTRY METHOD 04/07/2024 3:05 PM [facility] Chloride 108 96 - 110 mmol/L LAB CHEMISTRY METHOD 04/07/2024 3:05 PM [facility] CO2 25 21 - 32 mmol/L LAB CHEMISTRY METHOD 04/07/2024 3:05 PM [facility] Anion Gap 8 3 - 11 LAB CHEMISTRY METHOD 04/07/2024 3:05 PM [facility] Glucose 83 70 - 100 mg/dL LAB CHEMISTRY METHOD 04/07/2024 3:05 PM [facility] BUN 32(H) 5 - 25 mg/dL LAB CHEMISTRY METHOD 04/07/2024 3:05 PM [facility] Creatinine 1.78(H) 0.50 - 1.10 mg/dL LAB CHEMISTRY METHOD 04/07/2024 3:05 PM [facility] eGFR 28(L) >=60 mL/min/1. 73m2 LAB CHEMISTRY METHOD 04/07/2024 3:05 PM [facility] Comment:Calculation based on the??Chronic Kidney Disease Epidemiology Collaboration (CKD-EPI) equation refit??without adjustment for race. BUN/Creatinine Ratio 18.0 LAB CHEMISTRY METHOD 04/07/2024 3:05 PM [facility] Calcium 8.9 8.5 - 10.5 mg/dL LAB CHEMISTRY METHOD 04/07/2024 3:05 PM [facility] Blood Venous blood specimen / Unknown Venipuncture / Unknown 04/07/2024 7:30 AM EST 04/07/2024 11:46 AM EST us Yasmany Tsai MD LAB BLOOD ORDERABLES Final Resul t [facility] [address] [place] [address], [place] [phone] * (ABNORMAL) Complete blood count (04/07/2024 7:30 AM EST) WBC 6.8 4.8 - 10.8 K/mcL LAB HEMETOLOGY METHOD 04/07/2024 12:58 PM [facility] RBC 3.20(L) 3.80 - 4.80 M/mcL LAB HEMETOLOGY METHOD 04/07/2024 12:58 PM [facility] Hemoglobin 9.1(L) 11.5 - 16.0 g/dL LAB HEMETOLOGY METHOD 04/07/2024 12:58 PM [facility] Hematocrit 29.8(L) 35.0 - 47.0 % LAB HEMETOLOGY METHOD 04/07/2024 12:58 PM [facility] MCV 94.6 79.0 - 98.0 FL LAB HEMETOLOGY METHOD 04/07/2024 12:58 PM [facility] MCH 28.9 27.0 - 32.0 pcg LAB HEMETOLOGY METHOD 04/07/2024 12:58 PM [facility] MCHC 30.5(L) 32.0 - 37.0 g/dL LAB HEMETOLOGY METHOD 04/07/2024 12:58 PM [facility] RDW 17.9(H) 11.0 - 15.0 % LAB HEMETOLOGY METHOD 04/07/2024 12:58 PM [facility] Platelets 622(H) 130 - 400 K/mcL LAB HEMETOLOGY METHOD 04/07/2024 12:58 PM EST [facility] MPV 8.8 7.0 - 11.0 FL LAB HEMETOLOGY METHOD 04/07/2024 12:58 PM EST [facility] NRBC 0.0 <1.0 % LAB HEMETOLOGY METHOD 04/07/2024 12:58 PM EST [facility] NRBC Absolute 0.00 <0.10 K/mcL LAB HEMETOLOGY METHOD 04/07/2024 12:58 PM EST [facility] Blood Venous blood specimen / Unknown Venipuncture / Unknown 04/07/2024 7:30 AM EST 04/07/2024 11:46 AM EST us Yasmany Tsai MD LAB BLOOD ORDERABLES Final Resul t [facility] [address] [place] [address], documented in this encounter Visit Diagnoses Diagnosis Essential (primary) hypertension Unspecified essential hypertension Hyperlipidemia, unspecified Type 2 diabetes mellitus without complications (CMS/HCC) documented in this encounter Care Teams Assisted Living Manager Relationship Specialty Start Date End Date Brielle Barrientos MD [address] [place] [id number] PCP - General Internal Medicine 01/11/24 documented as of this encounter
--- OUTSIDE RECORDS SUMMARY | 2024-05-20 16:28 | XMS_ITS | Encounter Summary ---
Author Organization [facility] Address [address] [place] [address] Care Team Providers Care Board Machine Set Up Operator Name Role Phone Brielle Barrientos MD Primary Care Pr ovid Reason for Referral * Consultation (Routine) - Authorized Specialty Diagnoses / Procedures Referred By Contac t Referred To Contact Dermatology Diagnoses Basal cell carcinoma (BCC) of face Brielle Barrientos MD [address] [place] [address] Phone: tel: fax: [address] [address] Phone: tel: fax: Referral ID Status Reason Start Date Expiration Date Visits Requested Visits Authorized [id number] Authorized Specialty Services Required 04/24/2024 04/24/2025 1 1 Scheduling Instructions Is this visit: Follow Up Address of Specialist: [address] [place] [address] Phone # of Specialist: [phone] Fax #: (if applicable): [phone] Does patient have an appointment scheduled?: yes Date of appointment- (including a retro-request): 04/29/24 Reason for Visit * Reason Onset Date Comments Referral 04/24/2024 [facility] - Dr Wong Encounter Details Date Type Department Care Team (Late st Contact Info) Description 04/24/2024 Telephone Adult Medicine [facility] [address] [place], [place] [phone] Brielle Barrientos MD [address] [place] [address] Referral ([facility] - Dr Wong ) Social History Tobacco Use Types Packs/Day Years [...] as of this encounter Progress Notes * Teri Cornejo - 04/24/2024 11:50 AM EST Referral Request: What insurance does the patient have today? Payor: [employer] / Plan: [employer] / Product Type: *No Product type* / Referrals cannot be processed if the insurance is not accurate. If the insurance listed above in red is NO BILLING INFORMATION FOUND FOR THIS ENCOUTNER The patients correct insurance must be obtained and registered in [facility] or their referral can not be processed. Is this a retro request? no. If yes for what date of service do you need the retro referral? 04/29/24 Who is calling to request this referral? Patient's daughter Lita If the caller is not the patient, what is their name? not applicable Ask the patient WHO referred them to this specialty: Patient saw Dr Barrientos at [facility] for the problem and was told if symptoms did not resolve or worsen they would refer them to this specialty FIRST and LAST NAME of SPECIALIST PATIENT is seeing: Dr Yohan Wong - [facility] What specialty is this? 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 If YES, when? Yes. 6mths to a year ago Have you checked REVIEW or the APPT DESK to see if this referral has already been done or has visits left? yes Is this visit: Follow Up Address of Specialist: [address] [place] [address] Phone # of Specialist: [phone] Fax #: (if applicable): [phone] Does patient have an appointment scheduled?: yes Date of appointment- (including a retro-request): 04/29/24 Is this appointment related to: n/a documented in this encounter Plan of Treatment Upcoming Encounters Date Type Department Care Team (Late st Contact Info) Description 05/23/2024 11:45 AM EST Appointment Bone Density - [address] [phone] 05/26/2024 3:00 PM EDT Consult Endocrinology - [address] [phone] Irina Wheeler MD [address] [place] [address] 08/22/2024 10:30 AM EDT Office Visit Adult Medicine [address] [phone] Melanie Mata PA [address] [place] [address] 01/22/2025 10:15 AM EST Office Visit [facility] Hematology Oncology [address] [place] [phone] Hong Verma MD [address] [place] [address] Scheduled Referrals Name Type Priority Associated Diagnoses Order Schedule Ambulatory referral to Dermatology Outpatient Referral Routine Basal cell carcinoma (BCC) of face 1 Occurrences starting 04/24/2024 until 04/24/2025 documented as of this encounter Goals Goal Patient Goal Type Associated Problems Recent Progress Patient-Stated? Author Pt goals General On track(11/19/2 024 3:53 PM EST) Yes James Johnson, [...] dressing - Met Pt to increase L delicate fabrics presser strength to >= 35# to be able [...] for light IADLs Pt to demo increased delicate fabrics presser strength >= 40# to be able to cut tough foods Pt to perform HEP MOD I documented as of this encounter Visit Diagnoses Diagnosis Basal cell carcinoma (BCC) of face- Primary documented in this encounter Care Teams Board Machine Set Up Operator Relationship Specialty Start Date End Date Brielle Barrientos MD [address] [place] [phone] PCP - General Internal Medicine 01/11/24 documented as of this encounter
--- OUTSIDE RECORDS SUMMARY | 2024-05-20 16:29 | XMS_ITS | Encounter Summary ---
Author Organization [facility] Address [address] [address] Phone Care Team Providers Care Rackman Name Role Phone Brielle Barrientos Primary Care Provider Encounter Details Date Type Department Care Team ([facility] Contact Info) Description 04/23/2024 Orders Only [facility] [address] [phone] Oscar Lu MD [address] [place] [phone] Stage 3b chronic kidney disease (HCC) Social History Tobacco Use Types Packs/Day Years Used Date Smoking Tobacco: Never Alcohol Use Standard Drinks/Week Comments No 0 (1 standard drink = 0.6 oz pur e alcohol) Comments Unknown Sex and Gender Information Value Date Recorded Sex Assigned at Not on file Legal Sex Female 4:52 PM EST Gender Identity Not on file Sexual Orientation Not on file documented as of this encounter Plan of Treatment Upcoming Encounters Date Type Department Care Team (Late Contact Info) Description 07/22/2024 4:15 PM EDT Office Visit [facility] [address] [phone] Oscar Lu MD [facility] [phone] documented as of this encounter Visit Diagnoses Diagnosis Stage 3b chronic kidney disease (HCC) documented in this encounter Care Teams Rackman Relationship Specialty Start Date End Date Brielle Barrientos [address] [place] [id number] PCP - General 12/10/23 documented as of this encounter
--- OUTSIDE RECORDS SUMMARY | 2024-05-20 16:29 | XMS_ITS | Clinical Summary ---
Author Organization [facility] [address] [place] [address] [place] [phone] Phone Care Team Providers Care Tipple Tender Name Role Phone Brielle Barrientos MD Primary Care Pr ovider Allergies Active Allergy Reactions Criticality Noted Date Comments Nitrofurantoin Monohyd/M-Cryst 12/26 Medications aspirin 81 mg EC tablet Take 1 tablet (81 mg total) by mouth 1 (one) time each day. Active Eliquis 5 mg tablet Take 1 tablet (5 mg total) by mouth every 12 hours. Active LORazepam (ATIVAN) 0.5 mg tablet Take 1 tablet (0.5 mg total) by mouth every 6 (six) hours if needed for anxiety. Active denosumab (PROLIA) 60 mg/mL syringe syringe Inject 1 mL (60 mg total) under the skin 1 (one) time. Active sacubitriL-valsa rtan (ENTRESTO) 24-26 mg per tablet Take 1 tablet by mouth 2 (two) times a day. Active cholecalciferol (VITAMIN D-3) 50 mcg (2,000 unit) tablet Take 1 tablet (2,000 Units total) by mouth 1 (one) time each day. Active calcium carbonate EX (TUMS EX) 300 mg (750 mg) chewable tablet Chew 1 tablet (300 mg total) 1 (one) time each day. Active acetaminophen (TYLENOL 8 HOUR) 650 mg 8 hr tablet Take 1 tablet (650 mg total) by mouth every 8 (eight) hours if needed for mild pain. Do not crush, chew, or split. Active melatonin 3 mg tabletIndication s:Primary insomnia Take 1 tablet (3 mg total) by mouth at bedtime. Active latanoprost (XALATAN) 0.005 % ophthalmic solutionIndicati ons:Primary open angle glaucoma of both eyes, unspecified glaucoma stage Administer 1 drop into both eyes at bedtime. Active ketotifen (Zaditor) 0.025 % ophthalmic solutionIndicati ons:Itchy eyes Administer 1 drop into both eyes 1 (one) time each day in the morning. 10 mL 1 4 Active fluticasone propionate (FLONASE) 50 mcg/actuation nasal sprayIndications :Allergic rhinitis, unspecified seasonality, unspecified trigger Administer 1 spray into each nostril 2 (two) times a day. Shake gently. Before first use, prime pump. After use, clean tip and replace cap. 16 g 1 4 Active atorvastatin (LIPITOR) 20 mg tabletIndication s:Hyperlipidemia LDL goal <70 Take 1 tablet (20 mg total) by mouth at bedtime. 90 tablet 1 4 Active amLODIPine (NORVASC) 5 mg tabletIndication s:Primary hypertension Take 1 tablet (5 mg total) by mouth 1 (one) time each day. Take with 2.5mg for total of 7.5mg daily 90 each 1 4 025 Active citalopram (CeleXA) 10 mg tabletIndication s:Generalized anxiety disorder Take 0.5 tablets (5 mg total) by mouth 1 (one) time each day in the morning. 45 tablet 1 4 Active oxyBUTYnin XL (DITROPAN-XL) 10 mg 24 hr tabletIndication s:Urge incontinence Take 1 tablet (10 mg total) by mouth 1 (one) time each day. Do not crush, chew, or split. 90 each 1 4 025 Active lactulose (CHRONULAC) solution Take 15 mL (10 g total) by mouth 1 (one) time each day if needed (constipation) . 5 Active cyanocobalamin (VITAMIN B-12) 1,000 mcg tabletIndication s:B12 deficiency Take 1 tablet (1,000 mcg total) by mouth 1 (one) time each day. 90 each 3 5 026 Active methIMAzole (TAPAZOLE) 5 mg tablet Take 1 tablet (5 mg total) by mouth 1 (one) time each day. 90 tablet 1 5 Active senna-docusate (PERICOLACE) 8.6-50 mg per tablet Take 2 tablets by mouth 1 (one) time each day if needed for constipation. 180 each 5 025 Active methIMAzole (TAPAZOLE) 5 mg tablet Take 1 tablet (5 mg total) by mouth 1 (one) time each day. 4 025 Discontin ued(Reord er) amLODIPine (NORVASC) 2.5 mg tabletIndication s:Primary hypertension Take 1 tablet (2.5 mg total) by mouth 1 (one) time each day. 90 each 1 4 025 Discontin ued(Non-c ompliance ) Hospital, Clinic, or Other Facility Administered Medication Ordered Dose Route Frequency Start Date End Date Status cyanocobalamin (VITAMIN B-12) injection 1,000 mcgIndications:B12 deficiency 1000 mcg IM Every 30 days 02/08/2024 08/06/2024 Active Active Problems Problem Noted Date Diagnosed Date Osteoarthritis of spine with radiculopathy, lumb ar region 03/10/2024 Assessment & Plan (03/10/2024 4:08 PM EST): Referred to Physiatry and PT Use tylenol PRN Orders: Ambulatory referral to Physical Therapy and Athletic Training; Future Ambulatory referral to Physical Medicine Rehab; Future Basal cell carcinoma (BCC) of skin of face 03/10 Assessment & Plan (03/10/2024 4:08 PM EST): S/p biopsy done with [facility]. Has surgery consult March 27 Facet arthropathy, lumbar 01/27/2024 Spinal stenosis of lumbar re gion without neurogenic claudication 01/27/2024 Stenosis of both vertebral arteries 01/26/2024 History of breast cancer 01/26/2024 Varicose veins of bilateral lower extremities with other complications 01/26/2024 Thyroid lesion 01/26/2024 Overview (04/22/2024): 03/11: Heterogenous lower pole thyroid lesions, low suspicious for malignancy. Recommend one-year follow-up. Left bundle branch block 01/26/2024 Right internal carotid artery aneurysm Assessment & Plan (01/26/2024 10:47 AM EST): Referred to vascular surgery Orders: Ambulatory referral to Vascular Surgery; Future Primary insomnia 01/26/2024 Assessment & Plan (01/26/2024 10:47 AM EST): Continue melatonin 3 mg nightly Primary hypertension 01/26/2024 Assessment & Plan (04/22/2024 1:56 PM EST): Continue amlodipine 5mg daily. BP is stable at 135/68 Assessment & Plan (03/10/2024 4:08 PM EST): BP is not optimally controlled. Her Goal BP is <130/80 given the hx of CVA and CKD stage 3b Increase amlodipine to 7.5mg daily F/u next month as scheduled. Bring blood pressure log for review Orders: amLODIPine (NORVASC) 2.5 mg tablet; Take 1 tablet (2.5 mg total) by mouth 1 (one) time each day. amLODIPine (NORVASC) 5 mg tablet; Take 1 tablet (5 mg total) by mouth 1 (one) time each day. Take with 2.5mg for total of 7.5mg daily Assessment & Plan (01/26/2024 10:47 AM EST): BP stable Orders: amLODIPine (NORVASC) 10 mg tablet; Take 1 tablet (10 mg total) by mouth 1 (one) time each day. Age-related osteoporosis wit hout current pathological fracture 01/25/2024 Assessment & Plan (04/22/2024 1:56 PM EST): Start vitamin D 2000U daily and Tums . Follow up with Dr. Wheeler. (Advised to reschedule missed appointment) Assessment & Plan (03/10/2024 4:08 PM EST): [facility]. 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 She will establish care with Dr. Wheeler here for this Scheduled for DXA scan in April Orders: Ambulatory referral to Endocrinology; Future Cerebrovascular accident (CV A) due to thrombosis of right middle cerebral artery 01/25/2024 Overview (01/26/2024): MRI brain showed subacute right MCA vascular territory infarct without hemorrhagic transformation. Assessment & Plan (03/10/2024 4:08 PM EST): Needs PT order renewed specifically for strengthening as she has some LE weakness. Already has appointments scheduled for PT/OT/Speech therapy Her Daughter. Will call neurologist- Dr. Philip's office to see if she could be seen for a follow up appointment Orders: Ambulatory referral to Physical Therapy and Athletic Training; Future Assessment & Plan (01/26/2024 10:47 AM EST): Advised outpatient PT/OT/speech therapy If unable to tolerate will place home care orders Referred to neurology Orders: Ambulatory referral to Neurology; Future Ambulatory referral to Physical Therapy and Athletic Training; Future Ambulatory referral to Occupational Therapy; Future Hyperlipidemia LDL goal <70 01/25/2024 Assessment & Plan (01/26/2024 10:47 AM EST): Orders: atorvastatin (LIPITOR) 20 mg tablet; Take 1 tablet (20 mg total) by mouth at bedtime. CKD stage 3b, GFR 30-44 ml/min 01/25/2024 Assessment & Plan (04/22/2024 1:56 PM EST): Stable. BUN/creatinine 10/04.38, estimated GFR 38 on 04/14/24 Continue follow up with nephrology Assessment & Plan (03/10/2024 4:08 PM EST): Continue follow-up with nephrology Assessment & Plan (01/26/2024 10:47 AM EST): Continue follow up with Nephrology-Dr. Moore. Seen on 01/22/24. Visit notes reviewed. Labs ordered/renal US. Orders: Comprehensive metabolic panel; Future Chronic constipation 01/25/2024 Assessment & Plan (03/10/2024 4:08 PM EST): Continue lactulose PRN Assessment & Plan (01/26/2024 10:47 AM EST): Stable. Continue lactulose PRN Skin lesion of face 01/25/2024 Assessment & Plan (01/26/2024 10:47 AM EST): Has appt with [facility] Mar [address] emergency appt to see if she can be seen sooner Orders: Ambulatory referral to Dermatology; Future Dilated cardiomyopathy 01/25/2024 Assessment & Plan (03/10/2024 4:08 PM EST): Continue Entresto twice daily and cardiology follow-up Assessment & Plan (01/26/2024 10:47 AM EST): Continue follow up with cardiology Continue entresto Paroxysmal atrial fibrillation 01/25/2024 Assessment & Plan (03/10/2024 4:08 PM EST): Continue Eliquis 5 mg twice daily and cardiology follow-up. Assessment & Plan (01/26/2024 10:47 AM EST): Continue eliquis 5mg BID Primary open angle glaucoma (POAG) of both eyes 01/25/2024 Assessment & Plan (01/26/2024 10:47 AM EST): Continue latanoprost nightly Generalized anxiety disorder 01/25/2024 Assessment & Plan (04/22/2024 1:56 PM EST): Decrease citalopram to 5mg daily due to Qtc prolongation Assessment & Plan (03/10/2024 4:08 PM EST): Advised to Citalopram could contribute to Qtc prolongation. Will decrease citalopram to 5mg daily Orders: citalopram (CeleXA) 10 mg tablet; Take 0.5 tablets (5 mg total) by mouth 1 (one) time each day in the morning. Assessment & Plan (01/26/2024 10:47 AM EST): Continue citalopram 10mg daily Allergic rhinitis 01/25/2024 Assessment & Plan (01/26/2024 10:47 AM EST): Orders: fluticasone propionate (FLONASE) 50 mcg/actuation nasal spray; Administer 1 spray into each nostril 2 (two) times a day. Shake gently. Before first use, prime pump. After use, clean tip and replace cap. Subclinical hyperthyroidism 01/25/2024 Assessment & Plan (01/26/2024 10:47 AM EST): Continue methimazole 5mg QAM(started on 01/17/24) ;follow up with endocrinology. Anemia of chronic renal failure, stage 3b 2023 Assessment & Plan (03/10/2024 4:08 PM EST): She will complete pending labs today; daughter will call her county coroner to follow-up on whether or not she is getting the iron infusions Assessment & Plan (01/26/2024 10:47 AM EST): Iron infusions ordered by her county coroner. Pending appt Orders: CBC and differential; Future Iron deficiency 01/25/2024 Assessment & Plan (04/22/2024 1:56 PM EST): Stable. H/H on 04/14/2412/15.4 Continue follow up with nephrology Assessment & Plan (01/26/2024 10:47 AM EST): Schedule appt for iron infusions Orders: Ferritin; Future Iron and TIBC; Future B12 deficiency 01/25/2024 Assessment & Plan (04/22/2024 1:56 PM EST): She has received several b12 injections. Will update B12 level. Orders: Vitamin B12; Future Assessment & Plan (01/26/2024 10:47 AM EST): Continue B12 injections (now monthly) Orders: Vitamin B12; Future Urge incontinence 01/25/2024 Assessment & Plan (03/10/2024 4:08 PM EST): Orders: oxyBUTYnin XL (DITROPAN-XL) 10 mg 24 hr tablet; Take 1 tablet (10 mg total) by mouth 1 (one) time each day. Do not crush, chew, or split. 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 Will repeat A1c next month Orders: Hemoglobin A1c; Future Microalbumin creatinine urine ratio; Future Itchy eyes 01/25/2024 Assessment & Plan (01/26/2024 10:47 AM EST): Orders: ketotifen (Zaditor) 0.025 % ophthalmic solution; Administer 1 drop into both eyes 1 (one) time each day in the morning. Primary osteoarthritis involving multiple joints 08/14/2023 Benign paroxysmal positional vertigo due to bilateral vestibular disorder 06/05/2020 Resolved Problems Problem Noted Date Diagnosed Date Resolved Date History of basal cell carcinoma 01/25/2024 03/10/2024 Assessment & Plan (01/26/2024 10:47 AM EST): Orders: Ambulatory referral to Dermatology; Future Encounters Date Type Department Care Team Description 05/19/2024 Telephone Adult Medicine [address] [phone] Brielle Barrientos MD Referral (Dr Maria Del Rosario [place] - Neurologist) 05/16/2024 3:00 PM EST Office Visit Gastroenterology - [place] [facility] 175 [facility] [address] [place] [address] Torie Hathaway NP Dyssynergic defecation (Primary Dx); Normocytic anemia 05/10/2024 Billing Patient Not Present Adult Medicine [address] [phone] Brielle Barrinetos MD Closed fracture of neck of left femur with routine healing (Primary Dx); 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); 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/HCC); Chronic diastolic (congestive) heart failure (CMS/HCC); Type 2 diabetes mellitus with diabetic chronic kidney disease, unspecified CKD stage, unspecified whether termite control representative insulin use ([facility]); Thyrotoxicosis without thyroid storm, unspecified thyrotoxicosis type; Uncomplicated asthma, unspecified asthma severity, unspecified whether persistent; Anxiety disorder, unspecified type; Depression, unspecified depression type; Atrial fibrillation, unspecified type (CMS/HCC); Thrombocytosis; Hyperlipidemia, unspecified hyperlipidemia type; [facility] (current) use of anticoagulants; 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; Long-term current use of opiate analgesic 04/24/2024 Telephone Adult Medicine [address] [phone] Brielle Barrientos MD Referral ([facility] - Dr Wong ) 04/22/2024 Telephone Adult Medicine [address] [phone] Brielle Barrientos MD Referral (Fax requesting insurance referral - orthopedics) 04/21/2024 1:00 PM EST Office Visit Adult [address] [phone] Brielle Barrientos MD Hospital discharge follow-up (Primary Dx); Closed displaced subtrochanteric fracture of left femur with routine healing, subsequent encounter; B12 deficiency; Primary hypertension; Age-related osteoporosis without current pathological fracture; CKD stage 3b, GFR 30-44 ml/min (CMS/HCC); Other iron deficiency anemia; Generalized anxiety disorder 04/19/2024 Lab Requisition [facility] [address] [place] [address] Yasmany Tsai MD Hyperlipidemia, unspecified; Type 2 diabetes mellitus without complications (CMS/HCC) 04/18/2024 Telephone Adult Medicine [address] [phone] Brielle Barrientos MD vna 04/17/2024 Telephone Adult Medicine [address] [phone] Brielle Barrientos MD vna 04/16/2024 Telephone Adult Medicine [address] [phone] Brielle Barrientos MD VNA 04/15/2024 Telephone Adult Medicine [address] [phone] Brielle Barrientos MD Hospital Follow-up 04/12/2024 Lab Requisition [facility] [address] [place] [address] Yasmany Tsai MD Hyperlipidemia, unspecified; Type 2 diabetes mellitus without complications (CMS/HCC) 04/05/2024 Lab Requisition [facility] [address] [place] [phone] Yasmany Tsai MD Essential (primary) hypertension; Hyperlipidemia, unspecified; Type 2 diabetes mellitus without complications ([facility]/HCC) 04/04/2024 Telephone Adult Medicine [address] [phone] Brielle Barrientos MD provider call back 04/02/[address] [facility] [address] [facility] [address] Yasmany Tsai MD Hyperlipidemia, unspecified; Type 2 diabetes mellitus without complications ([facility]/HCC) 03/26/2024 Patient Outreach [facility] [address] [phone] Lulu Casas ADVERTISING ANALYST 03/25/2024 Telephone Adult [address] [phone] Brielle Barrientos MD Referral (Referral for [facility]) 03/20/[address] [phone] Brielle Barrientos MD Referral (OT) 03/17/2024 10:30 AM EST Treatment [facility] Occupational Therapy [address] [place] [phone] James Johnson, OT Cerebrovascular accident (CVA) due to thrombosis of right middle cerebral artery (CMS/HCC) (Primary Dx) 03/13/2024 11:45 AM EST Treatment [facility] Speech Therapy [address] [phone] Myriam Vitale, SIDE SEAM ENVELOPE MACHINE OPERATOR Cognitive communication disorder (Primary Dx); Cerebrovascular accident (CVA) due to thrombosis of right middle cerebral artery (CMS/HCC); Osteoarthritis of spine with radiculopathy, lumbar region 03/13/2024 11:00 AM EST Treatment [facility] Occupational [facility] [address] [place] [phone] Aniyah Reddy, MICHEL 03/10/2024 1:00 PM EST Office Visit Adult Medicine [address] [phone] Brielle Barrientos MD Hospital discharge follow-up (Primary Dx); Pre-syncope; Orthostatic dizziness; Cerebrovascular accident (CVA) due to thrombosis of right middle cerebral artery (CMS/HCC); Primary hypertension; Osteoarthritis of spine with radiculopathy, lumbar region; Chronic constipation; Generalized anxiety disorder; Age-related osteoporosis without current pathological fracture; Basal cell carcinoma (BCC) of skin of other part of face; QT prolongation; Urge incontinence; Type 2 diabetes mellitus with diabetic microalbuminuria, without long-term current use of insulin ([facility]/HCC); Anemia of chronic renal failure, stage 3b (CMS/HCC); CKD stage 3b, GFR 30-44 ml/min (CMS/HCC); Paroxysmal atrial fibrillation (CMS/HCC); Dilated cardiomyopathy (CMS/HCC) 03/07/2024 3:15 PM EST Treatment [facility] Occupational Therapy [address] [phone] Liz Suárez COTA/Tammy Cerebrovascular accident (CVA) due to thrombosis of right middle cerebral artery (CMS/HCC) (Primary Dx) 03/04/2024 1:00 PM EST Treatment [facility] Occupational Therapy [address] [phone] Liz Suárez, MICHEL/L Cerebrovascular accident (CVA) due to thrombosis of right middle cerebral artery (CMS/HCC) (Primary Dx) 02/29/2024 3:15 PM EST Treatment [facility] Occupational Therapy [address] [phone] Liz Suárez COTA/Tammy Cerebrovascular accident (CVA) due to thrombosis of right middle cerebral artery (CMS/HCC) (Primary Dx) 02/23/2024 11:03 AM EST - 02/23/2024 11:59 PM EST Hospital Encounter [facility] Ultrasound [address] [place] [phone] Subclinical hyperthyroidism Discharge Disposition: Home or Self Care from Last 3 Months Surgical History Surgery Date Site/Laterality Comments MASTECTOMY PROCEDURE:MASTECTOMY MASTECTOMY 2011 Right PROCEDURE: HISTORICAL MASTECTOMY CAROTID ENDARTERECTOMY 2020 Right PROCEDURE: HISTORICAL CAROTID ENDART APPENDECTOMY PROCEDURE: HISTORICAL APPENDECTOMY OTHER SURGICAL HISTORY 2007 PROCEDURE: HISTORICAL CA BASAL CELL Medical History Medical History Date Comments Breast cancer (CMS/HCC) DX:Breas t cancer ([facility]);COMMENT:stage l infiltrating ductal carcinoma Chronic kidney disease DX:Chroni c kidney disease;COMMENT:chronic kidney disease Arthropathy DX:Arthropathy;C OMMENT:of the knee/patella/tibia/fibula Diabetes mellitus (CMS/HCC) DX:D iabetes mellitus ([facility]);COMMENT:diabetic nephropathy Family History Relation Name Status Comments Father Mother Social History Tobacco Use Types Packs/Day Years [...] on file Sexual Orientation Not on file Obstetrics History Last Filed Vital Signs Vital Sign Reading Time Taken Comments Blood Pressure 136/60 05/16/2024 3:13 PM EST Pulse 60 04/21/2024 1:27 PM EST Temperature 36.8 ??C (98.3 ??F) 04/21/2024 1:27 PM ES T Respiratory Rate 16 04/21/2024 1:27 PM EST Oxygen Saturation 97% 01/25/2024 2:00 PM EST Inhaled Oxygen Concentration - - Weight 61.2 kg (135 lb) 03/10/2024 1:06 PM EST Height 163.8 cm (5' 4.5 ) 05/16/2024 3:13 PM EST Body Mass Index 24.69 03/10/2024 1:06 PM EST Plan of Treatment Upcoming Encounters Date Type Department Care Team (Late st Contact Info) Description 05/23/2024 11:45 AM EST Appointment Bone Density - [facility] [address] [place] [phone] 05/26/2024 3:00 PM EDT Consult Endocrinology - [facility] [address] [place], [place] [phone] Irina Wheeler MD [address] [place] [phone] 08/22/2024 10:30 AM EDT Office Visit Adult Medicine [facility] [address] [place], [place] [phone] Melanie Mata PA [address] [place] [address] 01/22/2025 10:15 AM EST Office Visit [facility] Hematology Oncology [address] [place] [phone] Hong Verma MD [address] [place] [address] Health Maintenance Due Date Last Done Comments Zoster Vaccines (1 of 2) 12/14/1959 RSV Immunization Patients 60+ Years Old (1 - 1-dose 75+ series) 12/14/2014 Depression Screening 02/19/2022 Falls Risk Assessment 02/19/2022 Medicare Annual Wellness Visit 02/19/2022 Osteoporosis Screening (Bone Density Screening) 02/19/2022 Social Influencers of Health Screening 02/19/2022 Diabetes: Annual Retina Eye Exam 03/20/2024 03/20/2023 Diabetes: Annual Foot Exam 07/24/2024 07/25/2023 Diabetes: Blood Sugar Control Test (HGBA1C) 10/05/2024 04/07/2024, 04/02/2024, 03/10/2024, Additional history exists Diabetes: Annual Urine Albumin-Creatinine Ratio (uACR) 05/02/2025 05/02/2024, 03/10/2024 Diabetes: Annual GFR (Glomerular Filtration Rate) 05/02/2025 05/02/2024, 04/14/2024, 04/07/2024, Additional history exists Hypertension/CHF/CAD Annual BMP Blood Test 05/02/2025 05/02/2024, 04/14/2024, 04/07/2024, Additional history exists Cholesterol Screening (Lipid Panel) 04/07/2029 04/07/2024, 04/02/2024, 08/14/2023 DTaP,Tdap,and Td Vaccines (2 - Td or Tdap) 10/05/2030 10/05/2020 Influenza Vaccine Completed 11/23/2023, , 03/29/2022, Additional history exists Pneumococcal Vaccine: 50+ Years Completed 11/23/2023 COVID-19 Vaccine Completed 04/14/2024, , 12/13/2021, Additional history exists HIB Vaccines Aged Out No longer eligi ble based on patient's age to complete this topic HPV Vaccines Aged Out No longer eligi ble based on patient's age to complete this topic Hepatitis A Vaccines Aged Out No long er eligible based on patient's age to complete this topic Hepatitis B Vaccines Aged Out No long er eligible based on patient's age to complete this topic IPV Vaccines Aged Out No longer eligi ble based on patient's age to complete this topic MMR Vaccines Aged Out No longer eligi ble based on patient's age to complete this topic Meningococcal ACWY Vaccine Aged Out N o longer eligible based on patient's age to complete this topic Meningococcal B Vacine Aged Out No lo nger eligible based on patient's age to complete this topic RSV Immunization Patients Under 20 months Aged Out No longer eligible based on patient's age to complete this topic Varicella Vaccines Aged Out No longer eligible based on patient's age to complete this topic Goals Goal Patient Goal Type Associated Problems [...] dressing - Met Pt to increase L senior web architect strength to >= 35# to be able [...] for light IADLs Pt to demo increased senior web architect strength >= 40# to be able to cut tough foods Pt to perform HEP MOD I Procedures Procedure Name Priority Date/Time Associated Diagnosis Comments VITAMIN B12 Routine 04/21/2024 2:50 PM EST B12 deficiency CBC WITH AUTO DIFFERENTIAL Routine 04/14/2024 7:07 [...] Type 2 diabetes mellitus without complications (CMS/HCC) LIPID PANEL WITH REFLEX TO DIRECT LDL [...] Type 2 diabetes mellitus without complications (CMS/HCC) LIPID PANEL WITH REFLEX TO DIRECT LDL Routine 04/02/2024 5:24 AM EST Hyperlipidemia, unspecified Type 2 diabetes mellitus without complications (CMS/HCC) COMPREHENSIVE METABOLIC PANEL Routine 04/02/2024 5:24 AM EST Hyperlipidemia, unspecified Type 2 diabetes mellitus without complications (CMS/HCC) COMPLETE BLOOD COUNT Routine 04/02/2024 5:24 AM EST Hyperlipidemia, unspecified Type 2 diabetes mellitus without complications (CMS/HCC) CBC WITH AUTO DIFFERENTIAL Routine 03/10/2024 2:36 PM EST Anemia of chronic renal failure, stage 3b (CMS/HCC) HEMOGLOBIN A1C Routine 03/10/2024 2:36 PM EST Type 2 diabetes mellitus with diabetic microalbuminuria, without long-term current use of insulin ([facility]/HCC) CBC AND DIFFERENTIAL Routine 03/10/2024 2:36 PM EST Anemia of chronic renal failure, stage 3b (CMS/HCC) COMPREHENSIVE METABOLIC PANEL Routine 03/10/2024 2:36 PM EST CKD stage 3b, GFR 30-44 ml/min (CMS/[facility]) FERRITIN Routine 03/10/2024 2:36 PM EST Iron deficiency IRON AND TIBC Routine 03/10/2024 2:36 PM EST Iron deficiency MICROALBUMIN CREATININE URINE RATIO Routine 03/10/2024 2:36 PM EST Type 2 diabetes mellitus with diabetic microalbuminuria, without long-term current use of insulin ([facility]/HCC) US HEAD NECK SOFT TISSUE Routine 02/23/2024 11:24 AM EST Subclinical hyperthyroidism from Last 3 Months Results * Vitamin B12 (04/21/2024 2:50 PM EST) Pathologist [facility] [place] Vitamin B-12 679 250 - 900 pcg/mL LAB CHEMISTRY METHOD 04/21/2024 7:17 PM EST [facility] Blood Venous blood specimen / Unknown Venipuncture / Unknown 04/21/2024 2:50 PM EST 04/21/2024 2:50 PM EST us Brielle Barrientos MD LAB BLOOD ORDERA BLES Final Result [facility] [address] [place] [address], * (ABNORMAL) CBC auto differential (04/14/2024 7:07 AM EST) Only the most recent of2 resultswithin the time period is included. Pathologist [facility] [place] WBC 5.2 4.8 - 10.8 K/mcL LAB HEMETOLOGY METHOD 04/14/2024 1:34 PM [facility] RBC 3.10(L) 3.80 - 4.80 M/mcL LAB HEMETOLOGY METHOD 04/14/2024 1:34 PM [facility] Hemoglobin 9.0(L) 11.5 - 16.0 g/dL LAB HEMETOLOGY METHOD 04/14/2024 1:34 PM [facility] Hematocrit 29.4(L) 35.0 - 47.0 % LAB HEMETOLOGY METHOD 04/14/2024 1:34 PM [facility] MCV 94.8 79.0 - 98.0 FL LAB HEMETOLOGY METHOD 04/14/2024 1:34 PM [facility] MCH 29.0 27.0 - 32.0 pcg LAB HEMETOLOGY METHOD 04/14/2024 1:34 PM [facility] MCHC 30.6(L) 32.0 - 37.0 g/dL LAB HEMETOLOGY METHOD 04/14/2024 1:34 PM [facility] RDW 18.2(H) 11.0 - 15.0 % LAB HEMETOLOGY METHOD 04/14/2024 1:34 PM [facility] Platelets 407(H) 130 - 400 K/mcL LAB HEMETOLOGY METHOD 04/14/2024 1:34 PM [facility] MPV 9.4 7.0 - 11.0 FL LAB HEMETOLOGY METHOD 04/14/2024 1:34 PM [facility] NRBC 0.0 <1.0 % LAB HEMETOLOGY METHOD 04/14/2024 1:34 PM [facility] NRBC Absolute 0.00 <0.10 K/mcL LAB HEMETOLOGY METHOD 04/14/2024 1:34 PM [facility] Neutrophils Relative 43.6 % LAB HEMETOLOGY METHOD 04/14/2024 1:34 PM [facility] Lymphocytes Relative 41.6 % LAB HEMETOLOGY METHOD 04/14/2024 1:34 PM [facility] Monocytes Relative 8.0 % LAB HEMETOLOGY METHOD 04/14/2024 1:34 PM [facility] Eosinophils Relative 5.6 % LAB HEMETOLOGY METHOD 04/14/2024 1:34 PM [facility] Basophils Relative 0.8 % LAB HEMETOLOGY METHOD 04/14/2024 1:34 PM [facility] Immature Granulocytes Relative 0.4 % LAB HEMETOLOGY METHOD 04/14/2024 1:34 PM [facility] Neutrophils Absolute 2.25 1.50 - 7.00 K/mcL LAB HEMETOLOGY METHOD 04/14/2024 1:34 PM [facility] Lymphocytes Absolute 2.14 1.00 - 5.00 K/mcL LAB HEMETOLOGY METHOD 04/14/2024 1:34 PM [facility] Monocytes Absolute 0.41 0.20 - 1.00 K/mcL LAB HEMETOLOGY METHOD 04/14/2024 1:34 PM [facility] Eosinophils Absolute 0.29 0.00 - 0.50 K/mcL LAB HEMETOLOGY METHOD 04/14/2024 1:34 PM [facility] Basophils Absolute 0.04 0.00 - 0.20 K/mcL LAB HEMETOLOGY METHOD 04/14/2024 1:34 PM [facility] Immature Granulocytes Absolute 0.02 0.00 - 0.03 K/mcL LAB HEMETOLOGY METHOD 04/14/2024 1:34 PM [facility] Blood Venous blood specimen / Unknown Venipuncture / Unknown 04/14/2024 7:07 AM EST 04/14/2024 10:53 AM EST us Yasmany Tsai MD LAB BLOOD ORDERABLES Final Resul t [facility] [address] [place] [address], [place] [phone] * (ABNORMAL) Basic metabolic panel (04/14/2024 7:07 AM EST) Only the most recent of2 resultswithin the time period is included. Sodium 140 133 - 145 mmol/L LAB CHEMISTRY METHOD 04/14/2024 12:51 PM [facility] Potassium 4.6 3.5 - 5.5 mmol/L LAB CHEMISTRY METHOD 04/14/2024 12:51 PM [facility] Chloride 109 96 - 110 mmol/L LAB CHEMISTRY METHOD 04/14/2024 12:51 PM [facility] CO2 26 21 - 32 mmol/L LAB CHEMISTRY METHOD 04/14/2024 12:51 PM [facility] Anion Gap 5 3 - 11 LAB CHEMISTRY METHOD 04/14/2024 12:51 PM [facility] Glucose 84 70 - 100 mg/dL LAB CHEMISTRY METHOD 04/14/2024 12:51 PM [facility] BUN 23 5 - 25 mg/dL LAB CHEMISTRY METHOD 04/14/2024 12:51 PM [facility] Creatinine 1.38(H) 0.50 - 1.10 mg/dL LAB CHEMISTRY METHOD 04/14/2024 12:51 PM [facility] eGFR 38(L) >=60 mL/min/1. 73m2 LAB CHEMISTRY METHOD 04/14/2024 12:51 PM [facility] Comment:Calculation based on the??Chronic Kidney Disease Epidemiology Collaboration (CKD-EPI) equation refit??without adjustment for race. BUN/Creatinine Ratio 16.7 LAB CHEMISTRY METHOD 04/14/2024 12:51 PM [facility] Calcium 9.3 8.5 - 10.5 mg/dL LAB CHEMISTRY METHOD 04/14/2024 12:51 PM [facility] Blood Venous blood specimen / Unknown Venipuncture / Unknown 04/14/2024 7:07 AM EST 04/14/2024 10:53 AM EST us Yasmany Tsai MD LAB BLOOD ORDERABLES Final Resul t [facility] [address] [place] [address], [place] [phone] * Lipid panel with reflex to direct LDL (04/07/2024 7:30 AM EST) Only the most recent of2 resultswithin the time period is included. Cholesterol 106 0 - 200 mg/dL LAB CHEMISTRY METHOD 04/07/2024 3:27 PM [facility] Triglycerides 46 0 - 150 mg/dL LAB CHEMISTRY METHOD 04/07/2024 3:27 PM [facility] HDL 45 >=40 mg/dL LAB CHEMISTRY METHOD 04/07/2024 3:27 PM [facility] LDL Calculated 52 0 - 100 mg/dL LAB CHEMISTRY METHOD 04/07/2024 3:27 PM [facility] VLDL Cholesterol Bhupinder 9.2 mg/dL LAB CHEMISTRY METHOD 04/07/2024 3:27 PM [facility] Non HDL Chol. (LDL+VLDL) 61 <145 mg/dL LAB CHEMISTRY METHOD 04/07/2024 3:27 PM [facility] Chol/HDL Ratio 2.4 0.0 - 4.4 LAB CHEMISTRY METHOD 04/07/2024 3:27 PM [facility] Blood Venous blood specimen / Unknown Venipuncture / Unknown 04/07/2024 7:30 AM EST 04/07/2024 11:46 AM EST Yasmany Tsai MD LAB BLOOD ORDERABLES Final Resul t Performing Organization Address City/[facility]/ZIP Co de Phone Number [facility] [address] [place] [address], [place] [phone] * Iron and TIBC (04/07/2024 7:30 AM EST) Only the most recent of3 resultswithin the time period is included. Iron 46 40 - 150 mcg/dL LAB CHEMISTRY METHOD 04/07/2024 3:05 PM [facility] TIBC 267 250 - 450 mcg/dL LAB CHEMISTRY METHOD 04/07/2024 3:05 PM [facility] Iron Saturation 17 15 - 50 % LAB CHEMISTRY METHOD 04/07/2024 3:05 PM [facility] Blood Venous blood specimen / Unknown Venipuncture / Unknown 04/07/2024 7:30 AM EST 04/07/2024 11:46 AM EST us Yasmany Tsai MD LAB BLOOD ORDERABLES Final Resul t Performing Organization Address [facility] Co de Phone Number [facility] [address] [place] [address], [place] [phone] * (ABNORMAL) Complete blood count (04/07/2024 7:30 AM EST) Only the most recent of2 resultswithin the time period is included. WBC 6.8 4.8 - 10.8 K/mcL LAB HEMETOLOGY METHOD 04/07/2024 12:58 PM [facility] RBC 3.20(L) 3.80 - 4.80 M/mcL LAB HEMETOLOGY METHOD 04/07/2024 12:58 PM [facility] Hemoglobin 9.1(L) 11.5 - 16.0 g/dL LAB HEMETOLOGY METHOD 04/07/2024 12:58 PM [facility] Hematocrit 29.8(L) 35.0 - 47.0 % LAB HEMETOLOGY METHOD 04/07/2024 12:58 PM [facility] MCV 94.6 79.0 - 98.0 FL LAB HEMETOLOGY METHOD 04/07/2024 12:58 PM [facility] MCH 28.9 27.0 - 32.0 pcg LAB HEMETOLOGY METHOD 04/07/2024 12:58 PM [facility] MCHC 30.5(L) 32.0 - 37.0 g/dL LAB HEMETOLOGY METHOD 04/07/2024 12:58 PM [facility] RDW 17.9(H) 11.0 - 15.0 % LAB HEMETOLOGY METHOD 04/07/2024 12:58 PM [facility] Platelets 622(H) 130 - 400 K/mcL LAB HEMETOLOGY METHOD 04/07/2024 12:58 PM EST [facility] MPV 8.8 7.0 - 11.0 FL LAB HEMETOLOGY METHOD 04/07/2024 12:58 PM [facility] NRBC 0.0 <1.0 % LAB HEMETOLOGY METHOD 04/07/2024 12:58 PM [facility] NRBC Absolute 0.00 <0.10 K/mcL LAB HEMETOLOGY METHOD 04/07/2024 12:58 PM [facility] Blood Venous blood specimen / Unknown Venipuncture / Unknown 04/07/2024 7:30 AM EST 04/07/2024 11:46 AM EST us Yasmany Tsai MD LAB BLOOD ORDERABLES Final Resul t [facility] [address] [place] [address], * Thyroid stimulating hormone (04/07/2024 7:30 AM EST) Only the most recent of2 resultswithin the time period is included. Pathologist [facility] [place] TSH 2.81 0.40 - 4.00 mcIU/mL LAB CHEMISTRY METHOD 04/07/2024 3:12 PM EST [facility] Blood Venous blood specimen / Unknown Venipuncture / Unknown 04/07/2024 7:30 AM EST 04/07/2024 11:46 AM EST us Yasmany Tsai MD LAB BLOOD ORDERABLES Final Resul t Performing Organization Address City/[facility]/ZIP Co de Phone Number [facility] [address] [place] [address], [place] [phone] * Thyroxine total (04/07/2024 7:30 AM EST) Only the most recent of2 resultswithin the time period is included. Pathologist [facility] [place] T4, Total 6.3 4.5 - 10.9 mcg/dL LAB CHEMISTRY METHOD 04/07/2024 3:17 PM EST [facility] Blood Venous blood specimen / Unknown Venipuncture / Unknown 04/07/2024 7:30 AM EST 04/07/2024 11:46 AM EST us Yasmany Tsai MD LAB BLOOD ORDERABLES Final Resul t Performing Organization Address City/[facility]/ZIP Co de Phone Number [facility] [address] [place] [address], [place] [phone] * Hemoglobin A1c (04/07/2024 7:30 AM EST) Only the most recent of3 resultswithin the time period is included. [facility] Hemoglobin A1C 5.6 <6.5 % LAB CHEMISTRY METHOD 04/07/2024 6:39 PM EST [facility] Mean Bld Glu Estim. 114 mg/dL LAB CHEMISTRY METHOD 04/07/2024 6:39 PM EST [facility] Blood Venous blood specimen / Unknown Venipuncture / Unknown 04/07/2024 7:30 AM EST 04/07/2024 11:46 AM EST Yasmany Tsai MD LAB BLOOD ORDERABLES Final Resul t Performing Organization Address City/[facility]/ZIP Co de Phone Number [facility] [address] [place] [address], [place] [phone] * Ferritin (04/02/2024 5:24 AM EST) Only the most recent of2 resultswithin the time period is included. Ferritin 140 8 - 252 ng/mL LAB CHEMISTRY METHOD 04/02/2024 10:11 AM EST [facility] Blood Venous blood specimen / Unknown Venipuncture / Unknown 04/02/2024 5:24 AM EST 04/02/2024 8:59 AM EST Yasmany Tsai MD LAB BLOOD ORDERABLES Final Resul t Performing Organization Address [facility]/ZIP Co de Phone Number [facility] [address] [place] [address], [place] [phone] * (ABNORMAL) Comprehensive metabolic panel (04/02/2024 5:24 AM EST) Only the most recent of2 resultswithin the time period is included. Sodium 140 133 - 145 mmol/L LAB CHEMISTRY METHOD 04/02/2024 10:24 AM EST [facility] Potassium 4.2 3.5 - 5.5 mmol/L LAB CHEMISTRY METHOD 04/02/2024 10:24 AM EST [facility] Chloride 108 96 - 110 mmol/L LAB CHEMISTRY METHOD 04/02/2024 10:24 AM EST [facility] CO2 25 21 - 32 mmol/L LAB CHEMISTRY METHOD 04/02/2024 10:24 AM EST [facility] Anion Gap 7 3 [...] ORDERABLES Final Resul t Performing Organization Address [facility] Co de Phone Number [facility] [address] [place] [address], [place] [phone] * (ABNORMAL) Microalbumin creatinine urine ratio (03/10/2024 2:36 PM EST) Creatinine, Urine 115.0 mg/dL LAB CHEMISTRY METHOD 03/10/2024 5:13 PM EST [facility] Microalb, Ur 278.0(H) 0.0 - 29.0 mg/L LAB CHEMISTRY METHOD 03/10/2024 5:13 PM EST [facility] Microalb/Crea t Ratio 242(H) <30 mg/g creat LAB CHEMISTRY METHOD 03/10/2024 5:13 PM EST [facility] Urine Urine specimen obtained by clean catch procedure / Unknown Non-blood Collection / Unknown 03/10/2024 2:36 PM EST 03/10/2024 2:36 PM EST Brielle Barrientos MD LAB URINE ORDERA BLES Final Result Performing Organization Address [facility]/ZIP Co de Phone Number [facility] [address] [place] [address], [place] [phone] * US Head Neck Soft Tissue (02/23/2024 11:24 AM EST) Anatomical Region Laterality Modality Head and Neck Ultrasound 02/26/2024 1:06 PM EST Impressions 02/26/2024 1:20 PM EST Heterogenous lower pole thyroid lesions, low suspicious for malignancy. Recommend one-year follow-up. -------- FINAL REPORT -------- Dictated By: Atul Lamas Dictated Date: 02/26/2024 13:06 ET Assigned Physician: Atul Lamas Reviewed and Electronically Signed By: Atul Lamas Signed Date: 02/26/2024 13:20 ET Workstation ID: [id number] Transcribed By: Self Edit Transcribed Date: 02/26/2024 13:06 ET Narrative 02/26/2024 1:20 PM EST EXAMINATION: Ultrasound head and neck soft tissue. CLINICAL HISTORY: History of nodules, voice hoarseness and family history of papillary thyroid cancer. COMPARISON: None. TECHNIQUE: Routine grayscale imaging of thyroid gland was performed. FINDINGS: RIGHT LOBE: The right lobe measures 4.3 x 2.1 x 2.4 cm. The gland is homogeneous in echotexture. There is a heterogeneous mid to lower pole lesion measuring 2.2 x 2.9 x 2.3 cm. It appears to be smoothly marginated, heterogeneous with ??cystic and isoechoic areas/spongiform, horizontally oriented and few echogenic ??foci with ACR T RADS- 2. It is not suspicious. LEFT LOBE: The left lobe measures 4.8 x 2.0 x 2.0 cm. There is a heterogeneous lesion in mid to lower pole with echogenic rim and few echogenic foci. It appears to be well marginated, horizontally orientated and minimal spongiform appearance. ACR TI-RADS- 2. ISTHMUS: It measures 0.3 cm. Procedure Note Atul Lamas MD - 02/26/2024 EXAMINATION: Ultrasound head and neck soft tissue. CLINICAL HISTORY: History of nodules, voice hoarseness and family historyof papillary thyroid cancer. COMPARISON: None. TECHNIQUE: Routine grayscale imaging of thyroid gland was performed. FINDINGS: RIGHT LOBE: The right lobe measures 4.3 x 2.1 x 2.4 cm. The gland ishomogeneous in echotexture. There is a heterogeneous mid to lower polelesion measuring 2.2 x 2.9 x 2.3 cm. It appears to be smoothly marginated,heterogeneous with cystic and isoechoic areas/spongiform, horizontallyoriented and few echogenic foci with ACR T RADS- 2. It is notsuspicious. LEFT LOBE: The left lobe measures 4.8 x 2.0 x 2.0 cm. There is aheterogeneous lesion in mid to lower pole with echogenic rim and fewechogenic foci. It appears to be well marginated, horizontally orientatedand minimal spongiform appearance. ACR TI-RADS- 2. ISTHMUS: It measures 0.3 cm. IMPRESSION: Heterogenous lower pole thyroid lesions, low suspicious for malignancy.Recommend one-year follow-up. -------- FINAL REPORT -------- Dictated By: Atul Lamas Dictated Date: 02/26/2024 13:06 ET Assigned Physician: Atul Lamas Reviewed and Electronically Signed By: Atul Lamas Signed Date: 02/26/2024 13:20 ET Workstation ID: [id number] Transcribed By: Self Edit Transcribed Date: 02/26/2024 13:06 ET us Isha [facility] IM[facility] US PROCEDURES Final Res ult from Last 3 Months Insurance [employer] Care Teams Tipple Tender Relationship Specialty Start Date End Date Brielle Barrientos MD [address] [place] [id number] PCP - General Internal Medicine 01/11/24
--- OUTSIDE RECORDS SUMMARY | 2024-05-20 16:29 | XMS_ITS | Data Portability ---
Author Organization [facility] [employer] [place] [facility] [place] - [facility], [address] [place] [id number] Care Team Providers Care Skate Maker Name Role Phone [facility] Prim juliette Care Provider HIM CCA OTHER Assessment No assessment recorded. Plan of Treatment Reminders Order Date Submit Date Provider Last Modified By Organization Details Last Modified Time Details Appointments None record ed. Lab None record ed. Referral None record ed. Procedures None record ed. Surgeries None record ed. Imaging None record ed. Medication Orders None record ed. Patient TargetsNo targets recorded. Patient InstructionsNo instructions recorded. Reason for Referral None Reported. Medical Equipment None Reported. Allergies Allergen ID Allergen Name Allergen Category Reaction Reaction Severity Criticality Documentation Date Start Date Code Code System Note Provider Name and Address Organization Details Recorded Time 26145 Macrobid medicatio n Not available Not available Not available 03/23/2024 31021 1 RxNorm Not Available [employer] 18:21:53 Vitals Date Recorded Respiratory rate Heart rate Oxygen saturation Oxygen saturation in Arterial blood by Pulse oximetry Systolic blood pressure Diastolic blood pressure Provider Name and Address Organization Details Last Updated DateTime 5 16 /min 83 /min 100 % 100 % 146 mm[Hg] 76 mm[Hg] Not Available [employer] 21:32:57 Social History None recorded. Functional Status None recorded. Mental Status None recorded. Family History Nothing Reported. Medical History No medical history recorded. Gynecological HistoryNo gynecological history recorded. Obstetrics History GPAL:G 0 P 0 0 0 0 Past Encounters Encounter ID Performer Location Encounter Start Date Encounter Closed Date Diagnosis/Indication Diagnosis SNOMED-CT Code Diagnosis ICD10 Code Diagnosis Note [id number] Vanessa Haywood MD Main - [facility] [address] [place] [phone] 03/23/2024 21:32:53 03/26/2024 13:53:12 Fall W19.XXXA As noted, we were called to see this patient regarding concerns of fall. Evaluation in the field was performed by my bit shaver colleague, as noted above, I provided real-time direction and supervisio n for this visit. The evaluation revealed 83 yo woman with bloodthinn er who fell this afternoon. She is having significan t pain and swelling of the left leg and is not able to bear weight.Agr ee with EMS transfer given concern for acute orthopedic injury and need for adequate pain control. Health Concerns Section Related Observation LastModified by Organization Detai ls LastModified Time None Recorded Concern Status LastModified by Organization Details LastModified Time None Recorded Advance Directives Directive None Recorded Payers Encounter Date Sequence Insurance Name Policy Number Policy Corea Covered Member ID Corea Member ID Guarantor Name 03/23/2024 1 [facility] - MEDICARE PREFERRED (MEDICARE REPLACEMENT HMO) [employer] Kaushal Easley [id number] 1 Sherrill Easley Notes Date Note Type Note Provider Name and Address Organization Details Recorded Time 03/23/2024 text/html [facility] Nurse Triage Notes (Rima Rod RN): Reason For Request: Pt's daughter Lita reporting pain on the left hip, mbr had gone out to the grocery store arrived home and tripped and fell to her left side on her driveway Patient Reports: Weakness with fall, able to move all extremities Denies: Falls with head strike and LOC Falls from a standing position, no LOC, patient is amnestic to the event Falls with isolated injury and deformity noted to limb Falls with inability to move post fall Cool extremities after fall or injury Chief Complaints: Falls PMH: Cancer, Congestive Heart Failure, Coronary Artery Disease, Stroke, Urinary Tract Infections (UTI) Pain Assessment: Level 10 out of 10 Comments: Member's daughter called in for member post fall. CRC RN verified identity via name/. Tripped on landscape brick, no LOC or head strike. Denies dizziness and headaches. Fell on L side- knee hip. Able to move leg but painful to bear weight. 500mg tylenol not helping. No obvious bruising or open areas. Education provided on expected response time and the member was advised to monitor reported s/s. Member in agreement to seek emergency treatment if needed. J Grupp RN ................... ................... ................... ................... ................... ................... ................... ........ Talent Development Consultant Note From Obdulio Almanza: This visit is for an 83-year-old female with a history including but not limited to cancer, CHF, CAD, stroke, atrial fibrillation. Patient's daughter requested a visit to assess the patient's left lower extremity. Daughter states when the patient was returning home around 3 PM she fell going up the front outdoor stairs onto her left side and is had 10/10 left hip and left upper leg pain since. Daughter states they were able to get the patient in a wheelchair and carrier back into the house but she has been unable to bear weight. The patient did not strike her head nor lose consciousness but is on Eliquis.The patient presents awake and alert, noticeably in pain. Her left lower extremity between the knee and the hip is noticeably more swollen when compared to the right. There is no signs of bruising or erythema but the left leg is diffusely tender on palpation. I'm unable to manipulate the leg without causing severe distress. The patient and family were agreeable to ambulance transport to [facility] emergency department. While assisting Robbie CARMONA with patient extrication, the patient's left leg was noticeably shortened and rotated. ................... ................... ................... ................... ................... ................... ................... ........ [facility] [place] Consulted: Vanessa Haywood ................... ................... ................... ................... ................... ................... ................... ........ Disposition: Fulfilled Vanessa Haywood MD [address] [place] [address],[address], [place], [phone], [facility] [employer] [facility] 03/23/2024 21:35:08 OBGyn Episode No OBEpisode recorded.
--- OUTSIDE RECORDS SUMMARY | 2024-05-20 16:29 | XMS_ITS | Continuity of Care Document ---
Author Organization [facility] Address [address] [place] [address]- Care Team Providers Care Cornetist Name Role Phone Floyd PLUMMER, Brielle Kaye Primary Care Physicia n [place] [facility] [place]): [place]24 - 05/02/24 [facility] [address] [place] [address] Attending Physician: Asif Yeh Admitting Physician: Asif Yeh Referring Physician: Asif Yeh Encounter Type: Triage Allergies, Adverse Reactions, Alerts Substance Criticality Severity [...] 9:56:00 AM EST, Route to Pharmacy Electronically, [facility], Partial fill upon patient [...] 1:12:55 PM EDT, [facility] [id number] Start Date: 08/05/17 Status: Ordered Quantity: 30.0 [...] Urinary retention Confirmed Active Syncope Confirmed Active Cardiology * Event Display: Non Cardiovascular Results Authored Date: Patient Care team information Care Team Personnel Name: Adolfo Fernandez RN Position: [facility] RN Member Role: Primary Care Nurse Name: Jesus RNYari Position: [facility] RN Member Role: Primary Care Nurse Name: Brunilda RNOksana Position: [facility] SN RN Member Role: Primary Care Nurse Name: Cosmo RN, Alexia Zaragoza Position: [facility] Onco RN Member Role: Primary Care Nurse Name: Teri Fisher RN Position: [facility] Hospital Audit Tech Member Role: Primary Care Nurse Name: Salud Dickinson RN Position: [facility] RN Member Role: Primary Care Nurse Name: Susan Maddox RN Position: [facility] RN Member Role: Primary Care Nurse Name: Mesfin Hubbard RN Position: [facility] RN Member Role: Primary Care Nurse Name: Maria Antonia Willett RN Position: [facility] RN Member Role: Primary Care Nurse Name: Madonna Parada RN Position: [facility] RN Member Role: Primary Care Nurse Name: Brielle Barrientos MD Position: Reference Physician Member Role: PCP Address: [address] [place] [address]- Telecom: Name: Oscar Lu MD Position: [facility] Renal MD Member Role: Lifetime Consulting Physician Address: [address] [place], [place] [id number] [facility] [place] [address]- [place] Telecom: Name: Hemalatha Lamb RN Position: [facility] RN Member Role: Primary Care Nurse Name: Emeterio Austin RN Position: [facility] RN Member Role: Primary Care Nurse Name: Pinky Araiza RN Position: [facility] RN Member Role: Primary Care Nurse Name: Nikita Espana RN Position: [facility] RN Member Role: Primary Care Nurse Name: Zamzam Benson RN Position: S RN Member Role: Primary Care Nurse Name: Jeannie Ann RN Position: S RN Member Role: Primary Care Nurse Care Team Related Persons Name: MELIZA HAZEL Name: PHILL HAZEL Insurance Providers Guarantor name: LAURA HAZEL Health Plan Information #: 1 Payer: [employer] H[employer] Member Number: NA Policy Number: NA Group Number: NA
--- OUTSIDE RECORDS SUMMARY | 2024-05-20 16:29 | XMS_ITS | Continuity of Care Document ---
Author Organization [place] [facility], [facility] [place] [address] Address [address] [place] [address] Care Team Providers Care Drilling Engineering Manager Name Role Phone DEZ CRANDALL Primary Care Provider Assessment Encounter Date Assessment Date Assessment LastModified by Organization Details LastModified Time 04/29/2024 04/29/2024 Patient seen und er general supervision of Dr. Jack who was available but who did not see the patient. HPI: 83-year-old female seen today for follow-up status post InterTAN fixation left intertrochanteric femur fracture performed by Dr. Fraire 03/25/24. Patient is at home. Reports pain is well-controlled. Has not yet begun full weightbearing on the leg. Is receiving home therapy twice a week. Is not taking any medication for pain. His back on her regular dose of eliquis Examination: 83-year-old female no acute distress Burmese speaking accompanied by her daughter casey as pathology laboratory aides teacher. Afebrile. On examination left hip surgical incisions are well healed and benign. Good motion of the hip without significant irritability. Calf is soft. Left lower extremity neurovascularly intact. X-rays ordered, obtained and reviewed at [facility] 2 views of left femur via long InterTAN shakira in good position, no backing out of loosening of hardware noted. No cut out from the femoral head appreciated. Impression: Status post InterTAN fixation left intertrochanteric femur fracture Plan: Treatment options discussed. Patient will advance to weightbearing as tolerated. She will continue to work with physical therapy and gait training and balance. Have encouraged appropriate nutrition as well as calcium and vitamin D. Follow-up in 6 weeks for recheck and repeat x-rays. Follow-up sooner if further difficulty. [facility] speech recognition executive candidate developer software was used to create portions of this document. An attempt at proofreading has been made to minimize errors. Please call for corrections. [email or web address] Not available 04/29/2024 10:15:38 Plan of Treatment Reminders Order Date Submit Date Provider Last Modified By Organization Details Last Modified Time Details Appointments POST OP 15 2024 10:15A M Ryley Fraire MD Not available Not available Not available Lab None recorded . Referral physical therapis t referral - PT- in home s/p Left hip intertan - WBAT, gait training , balance 2024 025 [email or web address] Not available 05/16/2024 08:12:52 Procedures None recorded . Surgeries None recorded . Imaging XR, femur, 2 or more view - room 121 2V L femur 2024 025 rmessenger [facility] [place] [facility], [address], [address], [place], [address], 05/16/2024 08:12:52 Medication Orders None recorded . Patient TargetsNo targets recorded. Patient InstructionsNo instructions recorded. Reason for Referral Physical Therapist Referral for Closed fracture of hip PT- in home s/p Left hip intertan- WBAT, gait training, balance PT- in home s/p Left hip intertan- WBAT, gait training, balance Referring Physician: Jeanmarie Muñoz, Orthopedic Surgery, Encounter Date: 04/29/2024 Results Created Date Observation Date Name Description Value Unit Range Abnormal Flag Note LastModifiedBy Organization Detail LastModifiedTime 04/29/1904/29/2024 XR, femur , 2 or more view http:/ [email or web address] ?Encry pted=s hAaTro YD8dLq bEUv6g %2BXZw aYqtaq 0bqfl% 2Fg9IQ a4ajBk vP9nXo QUaueC m3YtLR FvZlgJ JJ8mAn HZtai3 0b5217 AC0Kqb HqEUqO uKiQtr MwF INTERFACE [facility] [address], [place], [address], 04/29/2024 09:56:06 04/29/19 25 04/29/2024 XR, femur , 2 or more view http:/ [email or web address] ?Encry pted=s Agustin YD8dLq bEUv6g %2BXZw aYqtaq 0bqfl% 2Fg9IQ a4ajBk vP9nXo QUaueC m3YtLR FvZlgJ JJ8mAn HZtai3 8k9846 AC0Kqb HqEUqO uKiQtr MwF INTERFACE [facility] [address], [place], [address], 04/29/2024 09:56:08 Result Notes None recorded. Medical Equipment None Reported. Allergies Allergen ID Allergen Name Allergen Category Reaction Reaction Severity Criticality Documentation Date Start Date Code Code System Note Provider Name and Address Organization Details Recorded Time 493834 Macrobid medicatio n Not available Not available Not available 04/29/2024 03981 1 RxNorm KENZIE palomares [place] - [facility] 09:42:17 Medications Name Sig Start Date Stop Date Status Note LastModified by Organization Details LastModified Time latanoprost 0.005 % eye drops INSTILL 1 DROP IN BOTH EYES EVERY NIGHT AT BEDTIME DIRECTED active Not Available Not Available No t Available metformin 500 mg tablet TAKE 1 TABLET BY MOUTH TWICE DAILY WITH MEALS active Not Available Not Available No t Available carvedilol 25 mg tablet TAKE 1 TABLET BY MOUTH TWICE DAILY active Not Available Not Available No t Available atorvastatin 20 mg tablet TAKE 1 TABLET BY MOUTH AT BEDTIME active Not Available Not Available No t Available oxybutynin chloride ER 10 mg tablet,extende d release 24 hr TAKE 1 TABLET BY MOUTH DAILY active Not Available Not Available No t Available benzonatate 200 mg capsule TAKE 1 CAPSULE BY MOUTH THREE TIMES DAILY NEEDED FOR COUGH active Not Available Not Available No t Available citalopram 10 mg tablet TAKE 1 TABLET BY MOUTH EVERY MORNING active Not Available Not Available No t Available ketotifen 0.025 % (0.035 %) eye drops PLACE 1 DROP INTO AFFECTED EYES ONCE DAILY IN MORNING active Not Available Not Available No t Available cyanocobalamin (vit B-12) 1,000 mcg tablet TAKE 1 TABLET BY MOUTH DAILY active Not Available Not Available No t Available amlodipine 2.5 mg tablet active Not Available Not Available No t Available amlodipine 5 mg tablet TAKE 1 TABLET BY MOUTH EVERY DAY active Not Available Not Available No t Available aspirin 81 mg tablet,delayed release TAKE 1 TABLET BY MOUTH DAILY active Not Available Not Available No t Available lorazepam 0.5 mg tablet TAKE 1 TABLET BY MOUTH DAILY NEEDED FOR ANXIETY OR SEVERE ANXIETY active Not Available Not Available No t Available OneTouch Ultra Test strips DIRECTED TWICE TO THREE TIMES A DAY active Not Available Not Available No t Available amlodipine 10 mg tablet TAKE 1 TABLET BY MOUTH DAILY active Not Available Not Available No t Available methimazole 5 mg tablet TAKE 1 TABLET BY MOUTH DAILY active Not Available Not Available No t Available oxybutynin chloride ER 5 mg tablet,extende d release 24 hr TAKE 1 TABLET BY MOUTH EVERY DAY active Not Available Not Available No t Available fluticasone propionate 50 mcg/actuation nasal spray,suspensi on SHAKE LIQUID AND USE 1 SPRAY IN EACH NOSTRIL TWICE DAILY active Not Available Not Available No t Available amoxicillin 875 mg-potassium clavulanate 125 mg tablet TAKE 1 TABLET BY MOUTH TWICE DAILY FOR 7 DAYS active Not Available Not Available No t Available lactulose 10 gram/15 mL oral solution TAKE 30 ML BY MOUTH DAILY active Not Available Not Available No t Available Eliquis 5 mg tablet TAKE 1 TABLET BY MOUTH TWICE DAILY active Not Available Not Available No t Available Jardiance 10 mg tablet TAKE 1 TABLET BY MOUTH DAILY active Not Available Not Available No t Available ProAir RespiClick 90 mcg/actuation breath activated INHALE 2 PUFF BY MOUTH EVERY 6 HOURS NEEDED WHEEZING active Not Available Not Available No t Available Vitals Date Recorded Body height Body mass index (BMI) Body weight Provider Name and Address Organization Details Last Updated DateTime 04/29/2024 154.94 cm 23.6 kg/m2 69755.05 g KENZIE CHOE [place] - [facility] 04/29/2024 09:42:10 Social History None recorded. Functional Status None recorded. Mental Status None recorded. Family History Nothing Reported. Medical History No medical history recorded. Gynecological HistoryNo gynecological history recorded. Obstetrics History GPAL:G 0 P 0 0 0 0 Past Encounters Encounter ID Performer Location Encounter Start Date Encounter Closed Date Diagnosis/Indication Diagnosis SNOMED-CT Code Diagnosis ICD10 Code Diagnosis Note [id number] [facility] [address] [place] [address] 04/29/2024 09:25:43 05/16/2024 08:12:52 Hip pain 71314568 M25.552 Closed fra cture of hip 579074662 S72.002D Health Concerns Section Related Observation LastModified by Organization Detai ls LastModified Time None Recorded Concern Status LastModified by Organization Details LastModified Time None Recorded Payers Encounter Date Sequence Insurance Name Policy Number Policy Corea Covered Member ID Corea Member ID Guarantor Name 04/29/2024 1 [facility] (MEDICARE REPLACEMENT HMO) [employer] Sherrill Easley [id number] 1 Sherrill Easley OBGyn Episode No OBEpisode recorded.
--- OUTSIDE RECORDS SUMMARY | 2024-05-20 16:29 | XMS_ITS ---
Author Organization [facility] Address [address] [facility] [address] [place] [address] Care Team Providers Care Bonded Strand Operator Name Role Phone Yahir Bill Primary Care Provider Unavaildavid Hua M.D, M.P.H, Sri Unavailable [facility] Unavailable U navailable REASON FOR VISIT Sensorineural hearing loss (SNHL) of right ear with restricted hearing of left ear Encounters Encounter Location Date Provider Diagnosis [facility] [address] [address] 10/19/2023 Sri Hua Plan Of Treatment No Information Progress Notes * Sherrill PADILLA SDOB:[birth year] (83 yo F)Acc No.[id number]:10/19/2023 Progress Note Patient:?Sherrill PADILLA Provider:?Sri Hua M.D.,M.P.H :1940???Age:82 Y???Sex:Female D ate:10/19/2023 Address:[address] [place], [place] [id number] Pcp:Yahir Bill Subjective: * Chief Complaints: * ???1. Sensorineural hearing loss (SNHL) of right ear with restricted hearing of left ear. * Medical History:? Objective: * Vitals:? * Physical Examination:? Assessment: Plan: * Treatment: * Images: * Electronic signature of Olga Hua M.D M.P.H, Pamela,M.P.H on 05/20/2024 at 04:29 PM EST Sign off status: Pending * Provider:?Sri Hua M.D.,M.P.H Date:?0 10/19/2023 Generated for Eneida basilio/Zeenat/Daliasmleida on:?05/20/2024 04:29 PM EST
--- OUTSIDE RECORDS SUMMARY | 2024-05-20 16:29 | XMS_ITS | Data Portability ---
Author Organization [facility], [facility] Address [address] [place] [address] Care Team Providers Care Public Welfare Worker Name Role Phone DEZ CRANDALL Primary Care [...] eliquis Examination: 83-year-old female no acute distress Korean speaking accompanied by her daughter casey as corrections cadet. Afebrile. On examination left hip surgical incisions are well healed and benign. Good motion of the hip without significant irritability. Calf is soft. Left lower extremity neurovascularly intact. X-rays ordered, obtained and reviewed at [facility] 2 views of left femur via long [...] repeat x-rays. Follow-up sooner if further difficulty. [facility] speech recognition inspector fabric software was used to create portions of [...] 121 2V L femur 2024 025 rmessenger [facility], [address] [facility] [address], [address], [place], [address], 05/16/2024 08:12:52 Medication Orders None recorded . [...] a4ajBk vP9nXo QUaueC m3YtLR FvZlgJ JJ8mAn HZtai3 9a3735 AC0Kqb HqEUqO uKiQtr MwF INTERFACE [facility] [address], [place], [address], 04/29/2024 09:56:06 04/29/19 25 04/29/2024 XR, femur , 2 or more view http:/ [email or web address] ?Encry pted=s hAErino YD8dLq bEUv6g %2BXZw aYqtaq 0bqfl% 2Fg9IQ a4ajBk vP9nXo QUaueC m3YtLR FvZlgJ JJ8mAn HZtai3 5g4607 AC0Kqb HqEUqO uKiQtr MwF INTERFACE [facility] [address], [place], [address], 04/29/2024 09:56:08 Result Notes None recorded. Procedures Surgical History None recorded. Imaging Results Imaging Date Name Status LastModified by Organiz ation Details LastModified Time 04/29/2024 XR, femur, 2 or more view completed INTERFACE [facility] [address], [place], [address], 04/29/2024 09:56:06 04/29/2024 XR, femur, 2 or more view completed INTERFACE [facility] [address], [place], [address], 04/29/2024 09:56:08 Procedure Notes None recorded. Medical Equipment None Reported. Allergies Allergen ID Allergen Name Allergen Category Reaction Reaction Severity Criticality Documentation Date Start Date Code Code System Note Provider Name and Address Organization Details Recorded Time 116887 Macrobid medicatio n Not available Not available Not available 04/29/2024 14659 1 RxNorm KENZIE palomares [place] - [facility] 09:42:17 Medications Name Sig Start Date Stop [...] Updated DateTime 04/29/2024 154.94 cm 23.6 kg/m2 11602.05 g KENZIE CHOE [place] - [facility] 04/29/2024 09:42:10 Social History None recorded. Functional Status None recorded. Mental Status None recorded. Family History Nothing Reported. Medical History No medical history recorded. Gynecological HistoryNo gynecological history recorded. Obstetrics History GPAL:G 0 P 0 0 0 0 Past Encounters Encounter ID Performer Location Encounter Start Date Encounter Closed Date Diagnosis/Indication Diagnosis SNOMED-CT Code Diagnosis ICD10 Code Diagnosis Note [id number] ER[facility] [address] [place] [address] 04/29/2024 09:25:43 05/16/2024 08:12:52 Hip pain 84000092 M25.552 Closed fra cture of hip 212131886 S72.002D Health Concerns Section Related Observation LastModified by Organization Detai ls LastModified Time None Recorded Concern Status LastModified by Organization Details LastModified Time None Recorded Advance Directives Directive None Recorded Payers Encounter Date Sequence Insurance Name Policy Number Policy Corea Covered Member ID Corea Member ID Guarantor Name 04/29/2024 1 [facility] - MEDICARE PREFERRED (MEDICARE REPLACEMENT HMO) [employer] Sherrill Easley [id number] 1 Sherrill Easley OBGychey Episode No OBEpisode recorded.
--- OUTSIDE RECORDS SUMMARY | 2024-05-20 16:29 | XMS_ITS ---
Author Organization [facility] Address Unknown Allergies, Adverse Reactions, Alerts Substance Reaction Status Noted Date Resolved Date Macrobid active 03/31/2024 Problems Problem Status Start Date End Date DISPLACED INTERTROCHANTERIC FRACTURE OF LEFT FEMUR, SUBSEQUENT ENCOUNTER FOR CLOSED FRACTURE WITH ROUTINE HEALING (Primary) (S72.142D - ICD-10-CM) ACTIVE 03/31/2024 UNSPECIFIED FALL, SUBSEQUENT ENCOUNTER (W19.XXXD - ICD-10-CM) ACTIVE 03/31/2024 PAIN IN LEFT LEG (M79.605 - ICD-10-CM) ACTIVE MUSCLE WEAKNESS (GENERALIZED) (M62.81 - ICD-10-CM) ACT NARESH 03/31/2024 OTHER LACK OF COORDINATION (R27.8 - ICD-10-CM) ACTIVE 03/31/2024 DIFFICULTY IN WALKING, NOT E LSEWHERE CLASSIFIED (R26.2 - ICD-10-CM) ACTIVE 03/31/2024 PAIN IN LEFT HIP (M25.552 - ICD-10-CM) ACTIVE PAROXYSMAL ATRIAL FIBRILLATION (I48.0 - ICD-10-CM) ACT NARESH 03/31/2024 HYPERLIPIDEMIA, UNSPECIFIED (E78.5 - ICD-10-CM) ACTIVE 03/31/2024 HISTORY OF FALLING (Z91.81 - ICD-10-CM) ACTIVE 0 03/31/2024 MAJOR DEPRESSIVE DISORDER, S CIERA EPISODE, UNSPECIFIED (F32.9 - ICD-10-CM) ACTIVE 03/31/2024 ESSENTIAL (PRIMARY) HYPERTENSION (I10 - ICD-10-CM) ACT NARESH 03/31/2024 ANXIETY DISORDER, UNSPECIFIED (F41.9 - ICD-10-CM) ACTI VE 03/31/2024 CHRONIC DIASTOLIC (CONGESTIV E) HEART FAILURE (I50.32 - ICD-10-CM) ACTIVE 03/31/2024 CHRONIC KIDNEY DISEASE, STAG E 4 (SEVERE) (N18.4 - ICD-10-CM) ACTIVE 03/31/2024 PERSONAL HISTORY OF TRANSIEN T ISCHEMIC ATTACK (TIA), 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 with home health services [facility] 03/31/2024 05:08 pm EST - 04/16/2024 12:25 pm EST Immunizations Vaccine Date Influenza RSV, bivalent, protein subunit RSVpreF, diluent rec SARS-COV-2 (COVID-19) vaccine, UNSPECIFI ED 04/14/2024 12:00 am EST pneumococcal, unspecified formulation Social History Vital Signs Vital Sign Reading Time Taken painLevel 0 {score} 04/16/2024 12:01 pm EST painLevel 0 {score} 04/16/2024 09:43 am EST painLevel 0 {score} 04/16/2024 09:29 am EST painLevel 0 {score} 04/16/2024 01:28 am EST painLevel 0 {score} 04/15/2024 05:08 pm EST painLevel 0 {score} 04/15/2024 05:07 pm EST painLevel 0 {score} 04/15/2024 12:03 pm EST painLevel 0 {score} 04/15/2024 10:57 am EST painLevel 0 {score} 04/15/2024 08:53 am EST painLevel 0 {score} 04/15/2024 03:27 am EST painLevel 5 {score} 04/14/2024 04:41 pm EST painLevel 0 {score} 04/14/2024 03:46 pm EST painLevel 0 {score} 04/14/2024 12:29 pm EST painLevel 0 {score} 04/14/2024 08:49 am EST painLevel 0 {score} 04/14/2024 08:47 am EST painLevel 0 {score} 04/13/2024 11:41 pm EST painLevel 0 {score} 04/13/2024 05:39 pm EST painLevel 0 {score} 04/13/2024 05:37 pm EST painLevel 0 {score} 04/13/2024 12:04 pm EST painLevel 0 {score} 04/13/2024 11:50 am EST painLevel 0 {score} 04/13/2024 11:50 am EST painLevel 0 {score} 04/13/2024 12:26 am EST temperature 97.6 [degF] 04/16/2024 09:43 am EST temperature 97.2 [degF] 04/16/2024 09:33 am EST temperature 97.6 [degF] 04/16/2024 01:28 am EST temperature 97.4 [degF] 04/15/2024 05:12 pm EST temperature 97.2 [degF] 04/15/2024 10:56 am EST temperature 97.7 [degF] 04/15/2024 05:27 am EST temperature 97.6 [degF] 04/14/2024 04:44 pm EST temperature 97.5 [degF] 04/14/2024 01:51 pm EST temperature 97.9 [degF] 04/13/2024 11:59 pm EST temperature 97.5 [degF] 04/12/2024 10:41 pm EST heartrate 68 /min 04/16/2024 09:33 am EST heartrate 65 /min 04/13/2024 11:58 pm EST heartrate 61 /min 04/12/2024 10:40 pm EST respirations 16 /min 04/16/2024 09:33 am EST respirations 18 /min 04/13/2024 11:59 pm EST respirations 18 /min 04/12/2024 10:41 pm EST systolicValue 116 mm[Hg] 04/16/2024 09:33 am EST diastolicValue 68 mm[Hg] 04/16/2024 09:33 am EST systolicValue 118 mm[Hg] 04/13/2024 11:57 pm EST diastolicValue 60 mm[Hg] 04/13/2024 11:57 pm EST systolicValue 128 mm[Hg] 04/12/2024 10:40 pm EST diastolicValue 65 mm[Hg] 04/12/2024 10:40 pm EST oxygenSaturation 97 % 04/13/2024 11:5 9 pm EST oxygenSaturation 96 % 04/12/2024 10:4 1 pm EST
--- OUTSIDE RECORDS SUMMARY | 2024-05-20 16:29 | XMS_ITS | Patient Health Record ---
Author Organization [facility] Address [address] [place] [address] Care Team Providers Care Wound Care Nurse Name Role Phone Yahir Bill Primary Care Provider Mindy Hua M.D, M.P.H, Sri Unavailable [phone] [facility] Unavailable U Nickie Velazquez Unavailable [phone] Eve Rivera Unavailable Allergies Allergen (clinical drug ingredient) Drug/Non Drug Allergy documented on EMR Reaction Allergy Type Onset Date Status nitrofurantoin, macrocrystals / nitrofurantoin, monohydrate Macrobid Unknown Drug Allergy Active Reason For Referral No Information Medications Medication SIG (Take, Route, Frequency, Duration) Notes Start Date End Date Status metFORMIN HCl 500 MG TAKE 1 TABLET BY MO UTH TWICE DAILY WITH MEALS Oral for 90 Days Active Atorvastatin Calcium 20 MG TAKE 1 TABLET BY MOUTH EVERY DAY Oral for 90 Days Active amLODIPine Besylate 10 MG TAKE 1 TABLET BY MOUTH EVERY DAY Oral for 90 Days Active Carvedilol 25 MG TAKE 1 TABLET BY RUI TH TWICE DAILY Oral for 90 Days Active Latanoprost 0.005 % Ophthalmic for 90 Days Active Aspirin 81 81 MG 1 tablet Orally Once a day Active Vitamin D3 Active oxyBUTYnin Chloride 5 MG 1 tablet Orally Twice a day Active Entresto 24-26 MG 1 tablet Orally Twic e a day Active Problems Problem Type SNOMED Code ICD Code Onset Dates Problem Status W/U Status Risk Notes Problem Sensorineural hearing loss (SNHL) of right ear with restricted hearing of left ear (H90.A21) Active confirmed Plan Of Treatment No Information Insurance Providers Payer Name Payer Address Payer Phone Subscriber Number Group Number Insured Name Patient Relationship to Insured Coverage Start Date Coverage End Date [employer] Preferred Plan [address] [place] [phone] [id number] Sherrill Cadena Self - patient is the insured Medical (General) History Medical History History ICD Code bladder issues cardiac disease diabetes type 2 history breast cancer Surgical History Surgery Date(Month/Year) carotid artery surgery 2020 right side mastectomy
--- OUTSIDE RECORDS SUMMARY | 2024-05-20 16:29 | XMS_ITS ---
Author Organization [facility] Address [address] [facility] [address] [place] [address] Care Team Providers Care Ironing Worker Name Role Phone Yahir Bill Primary Care Provider Unavaildavid Hua M.D, M.P.H, Sri Unavailable [facility] Unavailable U navailable Eve Rivera Unavailable [phone] REASON FOR VISIT Sensorineural hearing loss (SNHL) of right ear with restricted hearing of left ear Encounters Encounter Location Date Provider Diagnosis [facility] [address] [address] 10/22/2023 Eve Lieberman Plan Of Treatment No Information Progress Notes * Sherrill PADILLA SDOB:[birth year] (83 yo F)Acc No.[id number]:10/22/2023 Patient:?Sherrill PADILLA Provider:?ELIZABETH Wan, CC -A :1940???Age:82 Y???Sex:Female D ate:10/22/2023 Address:[address] [place], [place] [id number] Pcp:Yahir Bill Subjective: * Chief Complaints: * ???1. Sensorineural hearing loss (SNHL) of right ear with restricted hearing of left ear. * Medical History:? Objective: * Vitals:? * Physical Examination:? Assessment: Plan: * Treatment: * Images: * Electronic signature of Elizabeth Bauman CCC-A on 05/20/2024 at 04:29 PM EST Sign off status: Pending * Provider:?ELIZABETH Wan CC -A Date:?10/22/2023 Generated for Printing/Faxing/eTransmitting on:?05/20/2024 04:29 PM EST
--- OUTSIDE RECORDS SUMMARY | 2024-05-20 16:30 | XMS_ITS | Clinical Summary ---
Author Organization [facility] Address [address] [place] [phone] Phone Care Team Providers Care Manager Front Name Role Phone Brielle Barrientos Primary Care Provider Allergies Active Allergy Reactions Criticality Noted Date Comments Nitrofurantoin 12/27/2023 Medications acetaminophen (TYLENOL) 325 MG tablet Take 1 tablet by mouth every 4 (four) hours Active aspirin (ST VALARIE) 81 MG EC tablet Take 1 tablet by mouth 1 (one) time each day Active atorvastatin (LIPITOR) 20 MG tablet Take 1 tablet by mouth at bed time Active oxybutynin XL (DITROPAN-XL) 5 MG 24 hr tablet Take 10 mg by mouth 1 (one) time each day Active sacubitril-deny sartan (Entresto) 24-26 MG per tablet Take 1 tablet by mouth 2 (two) times a day Active Eliquis 5 MG tablet Take 5 mg by mouth every 12 (twelve) hours 4 Active calcium carbonate EX (TUMS EX) 750 MG chewable tablet Chew 300 mg in the morning. 1 Active cholecalcifero l (VITAMIN D-3 SUPER STRENGTH) 50 MCG (1999 UT) tablet Take 2,000 Units by mouth in the morning. Active citalopram (CeleXA) 10 MG tablet Take 10 mg by mouth in the morning. 4 Active fluticasone (FLONASE) 50 MCG/ACT nasal spray 1 spray in the morning. 4 Active methIMAzole (TAPAZOLE) 5 MG tablet Take 5 mg by mouth 1 (one) time each day 4 Active cyanocobalamin (VITAMIN B-12) 1000 MCG tablet Take 1,000 mcg by mouth 1 (one) time each day Active amLODIPine (NORVASC) 10 MG tablet Take 0.5 tablets (5 mg total) by mouth 1 (one) time each day 5 Active amLODIPine (NORVASC) 10 MG tablet Take 1 tablet by mouth 1 (one) time each day 05/03/19 25 Discontinued Active Problems Problem Noted Date Diagnosed Date Acute congestive heart failure 06/05/2020 Acute nontraumatic kidney injury 06/05/2020 Anemia of chronic renal failure 06/05/2020 Benign paroxysmal positional vertigo 06/05/2020 Chronic kidney disease stage 4 06/05/2020 Disorder of kidney due to diabetes mellitus 05/18 Hyperlipidemia 06/05/2020 Hypertension 06/05/2020 Hypoglycemia 06/05/2020 Proteinuria 06/05/2020 Thyroid nodule 06/05/2020 Type 2 diabetes mellitus 06/05/2020 Encounters Date Type Department Care Team Description 05/02/2024 11:45 AM EST [facility] Visit [facility] [address] [address] Oscar Lu MD Stage 3b chronic kidney disease (HCC) (Primary Dx) 05/02/2024 Orders Only [facility] [address] [address] Oscar Lu MD 04/23/2024 Orders Only [facility] [address] [address] Oscar Lu MD Stage 3b chronic kidney disease (HCC) from Last 3 Months Family History Medical History Relation Comments Heart disease Father [place] Hypertension Father Relation Status Comments Father Mother Social History Tobacco Use Types Packs/Day Years Used Date Smoking Tobacco: Never Alcohol Use Standard Drinks/Week Comments No 0 (1 standard drink = 0.6 oz pur e alcohol) Comments Unknown Sex and Gender Information Value Date Recorded Sex Assigned at Not on file Legal Sex Female 4:52 PM EST Gender Identity Not on file Sexual Orientation Not on file Last Filed Vital Signs Vital Sign Reading Time Taken Comments Blood Pressure 118/70 05/02/2024 12:06 PM EST Pulse 77 05/02/2024 12:06 PM EST Temperature - - Respiratory Rate - - Oxygen Saturation 98% 05/02/2024 12:06 PM EST Inhaled Oxygen Concentration - - Weight 60.6 kg (133 lb 9.6 oz) 01/22/2024 10:37 AM EST Height 160 cm (5' 3 ) 12/04/2019 12:00 PM EDT Body Mass Index 23.67 12/04/2019 12:00 PM EDT Plan of Treatment Upcoming Encounters Date Type Department Care Team (Late st Contact Info) Description 07/22/2024 4:15 PM EDT Office Visit [facility] [address] [address] Oscar Lu MD [address] [phone] Health Maintenance Due Date Last Done Comments Pneumococcal Vaccine: 65+ Years (1 of 2 - PCV) 12/14/1946 Diabetes: Ophthalmology Exam 04/15/2020 Diabetes: Pedal Pulse Checked 04/15/2020 Diabetes: Sensory Foot Exam 04/15/2020 Diabetes: Visual Foot Exam 04/15/2020 Influenza Vaccine (#1) 2023 Diabetes: Hemoglobin A1C 07/06/2024 025, 04/02/2024, 03/10/2024, Additional history exists Hepatitis B Vaccine Aged Out No longe r eligible based on patient's age to complete this topic Procedures Procedure Name Priority Date/Time Associated Diagnosis Comments PTH, INTACT Routine 05/02/2024 1:14 PM EST MAGNESIUM Routine 05/02/2024 1:14 PM EST PHOSPHATE ( PHOSPHORUS) Routine 05/02/2024 1:14 PM EST VITAMIN D 25 HYDROXY Routine 05/02/2024 1:14 PM EST URINE ALBUMIN / CREATININE RATIO Routine 05/02/2024 1:14 PM EST PROTEIN / CREATININE RATIO, URINE Routine 05/02/2024 1:14 PM EST IMMUNOFIXATION ELECTROPHORESIS Routine 05/02/2024 1:14 PM EST BASIC METABOLIC PANEL Routine 05/02/2024 1:14 PM EST URINALYSIS WITH MICROSCOPIC Routine 05/02/2024 1:14 PM EST CBC AND DIFFERENTIAL Routine 05/02/2024 1:14 PM EST MICROSCOPIC EXAMINATION - DO NOT USE Routine 05/02/2024 1:14 PM EST HEMOGLOBIN A1C Routine 07/09/2020 8:20 AM EDT from Last 3 Months or Most Recently Relevant to Health Maintenance Results * (ABNORMAL) Microscopic Examination (05/02/2024 1:14 PM EST) WBC, Urine >30(A) 0 - 5 /hpf [facility] RBC, Urine None seen 0 - 2 /hpf [facility] Squamous Epithelial, Urine 0-10 0 - 10 /hpf [facility] Casts None seen None seen /lpf [facility] Bacteria, Urine Many(A) None seen/Few [facility] 05/02/2024 1:14 PM EST 05/02/2024 us Oscar Lu MD LAB MICROBIOLOGY - NERAL ORDERABLES Final Result [facility] [address] [place] [address] * (ABNORMAL) Protein, Total, Random Urine w/Creatinine (Protein/Creat Ratio) (05/02/2024 1:14 PM EST) Creatinine, Ur 141.7 Not Estab. mg/dL [facility] Protein, Ur 93.9 Not Estab. mg/dL [facility] Urine Protein/Creati nine Ratio 663(H) 0 - 200 mg/g creat [facility] 05/02/2024 1:14 PM EST 05/02/2024 Oscar Lu MD LAB URINE ORDERABLES Final Result Performing Organization Address [facility] Co de Phone Number [facility] [address] [place] [address] * (ABNORMAL) Urine Albumin / Creatinine Ratio (05/02/2024 1:14 PM EST) Albumin, Urine 303.1 Not Estab. ug/mL [facility] Albumin/Creatin ine Ratio 214(H) 0 - 29 mg/g creat [facility] Comment: ? Normal: ?0 - ??29 ? Moderately increased: 30 - 300 ? Severely increased: ? >300 05/02/2024 1:14 PM EST 05/02/2024 Oscar Lu MD LAB URINE ORDERABLES Final Result Performing Organization Address City/[facility] de Phone Number [employer] [facility] [address] [place] [address] * Vitamin D 25 Hydroxy (05/02/2024 1:14 PM EST) Vitamin D, 25-OH, Total 43.8 30.0 - 100.0 ng/mL [facility] Comment: Vitamin D deficiency has been defined by the Hydes of Medicine and an Endocrine Society practice guideline as a level of serum 25-OH vitamin D less than 20 ng/mL (1,2). The Endocrine Society went on to further define vitamin D insufficiency as a level between 21 and 29 ng/mL (2). 1. IOM (Hydes of Medicine). 2010. Dietary reference ?? intakes for calcium and D. [place]: The ?? National [employer]. 2. Neil MF, Francisco GARCIA, Quyen QUINTANA, et al. ?? Evaluation, treatment, and prevention of vitamin D ?? deficiency: an Endocrine Society clinical practice ?? guideline. JCEM. 2010; 96(7):1911-30. 05/02/2024 1:14 PM EST 05/02/2024 us Oscar Lu MD LAB BLOOD ORDERABLES Final Result [facility] [address] [place] [address] * (ABNORMAL) Urinalysis with microscopic (05/02/2024 1:14 PM EST) Specific [place], Urine 1.021 1.005 - 1.030 [facility] [phone] pH Urine 5.5 5.0 - 7.5 [facility] [phone] Color, Urine Yellow Yellow [facility] [phone] Appearance Urine Cloudy(A) Clear [facility] [phone] WBC Esterase Urine 3+(A) Negative [facility] [phone] Protein, Ur 2+(A) Negative/Tra ce [facility] Glucose, Ur Negative Negative [facility] Ketones, Urine Trace(A) Negative [facility] [phone] Blood Urine Negative Negative [facility] [phone] Bilirubin Urine Negative Negative [facility] Urobilinogen Urine 1.0 0.2 - 1.0 mg/dL [facility] Nitrite, Urine Negative Negative [facility] Microscopic Examination See below: [facility] Comment:Microscopic was kandice cated and was performed. 05/02/2024 1:14 PM EST 05/02/2024 us Oscar Lu MD LAB URINE ORDERABLES Final Result [facility] [address] [place] [address] * (ABNORMAL) CBC and Differential (05/02/2024 1:14 PM EST) WBC 4.9 3.4 - 10.8 x10E3/uL [facility] RBC 3.44(L) 3.77 - 5.28 x10E6/uL [facility] Hemoglobin 10.3(L) 11.1 - 15.9 g/dL [facility] Hematocrit 32.7(L) 34.0 - 46.6 % [facility] MCV 95 79 - 97 fL [facility] MCH 29.9 26.6 - 33.0 pg [facility] MCHC 31.5 31.5 - 35.7 g/dL [facility] RDW 16.3(H) 11.7 - 15.4 % [facility] Platelets 314 150 - 450 x10E3/uL [facility] Neutrophils Relative 56 Not Estab. % [facility] Lymphocytes Relative 34 Not Estab. % [facility] Monocytes 6 Not Estab. % [facility] Eosinophils Relative 3 Not Estab. % [facility] Basophils Relative 1 Not Estab. % [facility] Neutrophils Absolute 2.7 1.4 - 7.0 x10E3/uL [facility] Lymphocytes Absolute 1.7 0.7 - 3.1 x10E3/uL [facility] Monocytes Absolute 0.3 0.1 - 0.9 x10E3/uL [facility] Eosinophils Absolute 0.2 0.0 - 0.4 x10E3/uL [facility] Basophils Absolute 0.1 0.0 - 0.2 x10E3/uL [facility] Immature Granulocytes 0 Not Estab. % [facility] Immature Grans (Absolute) 0.0 0.0 - 0.1 x10E3/uL [facility] 05/02/2024 1:14 PM EST 05/02/2024 us Oscar Lu MD LAB BLOOD ORDERABLES Final Result [facility] [address] [place] [address] * (ABNORMAL) Immunofixation electrophoresis (05/02/2024 1:14 PM EST) IgG 1,220 586 - 1,602 mg/dL [facility] IgA 745(H) 64 - 422 mg/dL [facility] IgM 91 26 - 217 mg/dL [facility] Immunofixation Result, Serum Comment(A ) [facility] Comment:Polyclonal increase detected in one or more immunoglobulins. 05/02/2024 1:14 PM EST 05/02/2024 Oscar Lu MD LAB BLOOD ORDERABLES Final Result [facility] [address] [place] [address] * Phosphorus (05/02/2024 1:14 PM EST) Phosphorus 4.0 3.0 - 4.3 mg/dL [facility] 05/02/2024 1:14 PM EST 05/02/2024 Oscar Lu MD LAB BLOOD ORDERABLES Final Result Performing Organization Address City/[facility]/ZIP Co de Phone Number [facility] [address] [place] [address] * PTH, Intact (05/02/2024 1:14 PM EST) PTH 32 15 - 65 pg/mL [facility] 05/02/2024 1:14 PM EST 05/02/2024 Oscar Lu MD LAB BLOOD ORDERABLES Final Result Performing Organization Address City/[facility] Co de Phone Number [facility] [address] [place] [address] * Magnesium (05/02/2024 1:14 PM EST) Magnesium 1.9 1.6 - 2.3 mg/dL [facility] 05/02/2024 1:14 PM EST 05/02/2024 Oscar Lu MD LAB BLOOD ORDERABLES Final Result [facility] [address] [place] [address] * (ABNORMAL) Basic Metabolic Panel (05/02/2024 1:14 PM EST) Glucose 104(H) 70 - 99 mg/dL [facility] BUN 25 8 - 27 mg/dL [facility] Creatinine 1.35(H) 0.57 - 1.00 mg/dL [facility] eGFR CKD-EPI CR 2020 39(L) >59 mL/min/1.7 3 [facility] BUN/Creatinine Ratio 19 12 - 28 [facility] Sodium 141 134 - 144 mmol/L [facility] Potassium 4.2 3.5 - 5.2 mmol/L [facility] Chloride 106 96 - 106 mmol/L [facility] Bicarbonate (CO2) 21 20 - 29 mmol/L [facility] Calcium 9.6 8.7 - 10.3 mg/dL [facility] 05/02/2024 1:14 PM EST 05/02/2024 Oscar Lu MD LAB BLOOD ORDERABLES Final Result [facility] [address] [place] [address] * (ABNORMAL) Hemoglobin A1c (07/09/2020 8:20 AM EDT) Glycated Hemoglobin 6.5(H) <6.5 % [facility] (MEDICITY) Estimated Average Glucose 140 mg/dL [facility] (MEDICITY) Performing Lab Performing Lab(H) [facility] ([facility]ICITY) Comment: [employer], a member of [address] [address] Autom[employer] Artist - Sherrill Spears MD 07/09/2020 8:20 AM EDT 07/09/2020 9:21 AM EDT Yohan Padilla MD LAB BLOOD ORDERABLES Final Re sult [facility] (MEDICITY) from Last 3 Months or Most Recently Relevant to Health Maintenance Insurance [employer] Care Teams Manager Front Relationship Specialty Start Date End Date Brielle Barrientos [address] [place] [id number] PCP - General 12/10/23
--- OUTSIDE RECORDS SUMMARY | 2024-05-20 16:30 | XMS_ITS | Encounter Summary ---
Author Organization [facility] Address [address] [place] [phone] Phone Care Team Providers Care Cane Furniture Maker Name Role Phone Brielle Barrientos Primary Care Provider [phone] Reason for Visit * Reason Comments Stage 3b chronic kidney disease Encounter Details Date Type Department Care Team ([facility] Contact Info) Description 05/02/2024 11:45 AM EST Office Visit [facility]. [address] [phone] Oscar Lu MD [address] [phone] Stage 3b chronic kidney disease (HCC) (Primary Dx) Social History Tobacco Use Types Packs/Day Years [...] EST Inhaled Oxygen Concentration - - Weight - - Height - - Body Mass Index - - documented in this encounter Progress Notes * Oscar Lu MD - 05/02/2024 11:45 AM EST Images from the original note were not included. Patient Name: Sherrill Easley, Female Date of : 1940, 83 y.o. Date: 05/03/2024 History of Present Illness Sherrill Easley is a 83 y.o. female with pmh of Stage 3 chronic kidney disease, ,Congestive heart failure (since July 2017), Diabetes (approximately 10 years), Breast cancer in remission (diagnosed in 2011), Glaucoma, Stroke (), Atrial fibrillation (), Hypertension (40+ years), High cholesterol, Urinary tract infections, Urinary retention, Hyperthyroidism, Osteoporosis, Vertebral artery stenosis, Varicose veins Here for evaluation of renal function - Anemic, with low iron saturation noted in recent labs The patient's family history is positive for hypertension involving her father, and ischemic heart disease involving her father ([place]). Her family history is negative for kidney disease and diabetes mellitus. Her parents are both . Her father at age 72 due to [place]. Her mother at age 70 due to brain aneurysm Today - Admit in [facility] for hip fracture- - Received iron treatments during hospitalization. - Attended rehab and is currently receiving physical therapy at home. - No leg swelling The following portions of the patient's chart were reviewed in this encounter and updated as appropriate: Allergies Meds Problems Med Hx Surg Hx Fam Hx EMR: [facility]aud[facility] ( pcp)/ [facility] Past Medical History: Diagnosis Date Acute injury of kidney Congestive heart failure (HCC) Essential hypertension Glaucoma Hyperlipidemia Ischemic heart disease NSTEMI Malignant tumor of breast (HCC) Nephrolithiasis Type 2 diabetes mellitus (HCC) PSH: - Carotid surgery (2020 or 2021) - Right mastectomy (2011) Review of Systems Constitutional: Negative for chills and fever. Respiratory: Negative for cough and shortness of breath. Cardiovascular: Negative for chest pain, palpitations and leg swelling. Gastrointestinal: Negative for abdominal pain, nausea and vomiting. Genitourinary: Negative for dysuria, frequency, hematuria and urgency. Medication List Current Outpatient Medications Medication Sig Dispense Refill acetaminophen (TYLENOL) 325 MG tablet Take 1 tablet by mouth every 4 (four) hours amLODIPine (NORVASC) 10 MG tablet Take 0.5 tablets (5 mg total) by mouth 1 (one) time each day aspirin (ST VALARIE) 81 MG EC tablet Take 1 tablet by mouth 1 (one) time each day atorvastatin (LIPITOR) 20 MG tablet Take 1 tablet by mouth at bed time calcium carbonate EX (TUMS EX) 750 MG chewable tablet Chew 300 mg in the morning. cholecalciferol (VITAMIN D-3 SUPER STRENGTH) 50 MCG (2000 UT) tablet Take 2,000 Units by mouth in the morning. citalopram (CeleXA) 10 MG tablet Take 10 mg by mouth in the morning. Eliquis 5 MG tablet Take 5 mg by mouth every 12 (twelve) hours fluticasone (FLONASE) 50 MCG/ACT nasal spray 1 spray in the morning. methIMAzole (TAPAZOLE) 5 MG tablet Take 5 mg by mouth 1 (one) time each day oxybutynin XL (DITROPAN-XL) 5 MG 24 hr tablet Take 10 mg by mouth 1 (one) time each day sacubitril-valsartan (Entresto) 24-26 MG per tablet Take 1 tablet by mouth 2 (two) times a day cyanocobalamin (VITAMIN B-12) 1000 MCG tablet Take 1,000 mcg by mouth 1 (one) time each day No current facility-administered medications for this visit. Allergy List Allergies Allergen Reactions Nitrofurantoin Physical Exam BP 118/70 (BP Location: Left upper arm, Patient Position: Sitting, BP Cuff Size: Adult) Pulse 77 SpO2 98% Vitals reviewed. Constitutional: She is oriented to person, place, and time. She appears well- developed. No distress. Cardiovascular: Normal rate, regular rhythm and normal heart sounds. She exhibits no edema. Pulmonary/Chest: Effort normal and breath sounds normal. No respiratory distress. Abdominal: Soft. There is no abdominal tenderness. Musculoskeletal: Normal range of motion. Neurological: She is alert and oriented to person, place, and time. Skin: Skin is warm and dry. Labs - Creatinine: 1.5 mg/dL - EGFR: 33 - Hemoglobin: 10 g/dL - Iron saturation: 11% - Vitamin B12: low - HbA1c: 6.5% - High antithyroid peroxidase antibodies Renal US; The right kidney measures 10.1 cm in length. Renal cortical thinning is present and echotexture is increased. There is no hydronephrosis. There are no stones. There are multiple renal cysts present with the largest located within the mid pole measuring 3.0 x2.9 x 3.2 cm. The left kidney measures 11.9 cm in length. Renal cortical thinning is present and echotexture is increased. There is no hydronephrosis. There are no stones. There are multiple renal cysts present with the largest located within lower pole measuring 3.1 x 2.2 x 2.9 cm. Assessment & Plan 1. Stage 3b chronic kidney disease (HCC) - Stage 3 chronic kidney disease with fluctuating creatinine levels between 1.2 and 1.5, accompanied by microalbuminuria. Due to Diabetic nephropathy - Atrial fibrillation newly diagnosed, on AC - Anemia, s/p IV iron supplementation - off jardiance due to uti's - vitamin B12 def - on supplement inj - Kidney ultrasound in February 2024, which showed cysts and cortical thinning( see above) - Experienced a mild heart attack and congestive heart failure with ef of 35% in July 2017, has beenon Entresto since then. - Recent echocardiogram( [facility]) showed improved heart function. Plan - Low salt diiet - Avoid NSAIDs such as Motrin, Aleve, or ibuprofen due to kidney impact; use acetaminophen for pain. - Cards to consider the possibility of reducing the dose of Entresto, as the patient's heart function has improved according to a recent echocardiogram. - If coming off Entresto, can switch to ARB alone for nephroprotection for her Diabetic nephropathy Orders Placed This Encounter CBC and Differential Basic Metabolic Panel Urinalysis with microscopic Protein, Total, Random Urine w/Creatinine (Protein/Creat Ratio) Urine Albumin / Creatinine Ratio Vitamin D 25 Hydroxy Calcium Magnesium PTH, Intact Phosphorus Immunofixation electrophoresis CBC and Differential Renal Function Panel Urinalysis Protein, Total, Random Urine w/Creatinine (Protein/Creat Ratio) Urine Albumin / Creatinine Ratio Magnesium Phosphorus Hemoglobin A1c Iron Panel (Fe, TIBC, TSAT) Ferritin Uric Acid Cystatin C w/GFR Return in about 3 months (around 07/30/2024). Oscar Lu MD documented in this encounter Plan of Treatment Upcoming Encounters Date Type Department Care Team (Late st Contact Info) Description 07/22/2024 4:15 PM EDT Office Visit [facility] [address] [phone] Oscar Lu MD [address] [phone] Scheduled Orders Name Type Priority Associated Diagnoses Orde r Schedule CBC and Differential Lab Routine Stage 3b chronic kidney disease (HCC) Expected: 05/02/2024, Expires: 05/30/2025 Basic Metabolic Panel Lab Routine Stage 3b chronic kidney disease (HCC) Expected: 05/02/2024, Expires: 05/30/2025 Urinalysis with microscopic Lab Routine Stage 3b chronic kidney disease (HCC) Expected: 05/02/2024, Expires: 05/30/2025 Protein, Total, Random Urine w/Creatinine (Protein/Creat Ratio) Lab Routine Stage 3b chronic kidney disease (HCC) Expected: 05/02/2024, Expires: 05/30/2025 Urine Albumin / Creatinine Ratio Lab Routine Stage 3b chronic kidney disease (HCC) Expected: 05/02/2024, Expires: 05/30/2025 Vitamin D 25 Hydroxy Lab Routine Stage 3b chronic kidney disease (HCC) Expected: 05/02/2024, Expires: 05/30/2025 Calcium Lab Routine Stage 3b chronic kidney disease (HCC) Expected: 05/02/2024, Expires: 05/30/2025 Magnesium Lab Routine Stage 3b chronic kidney disease (HCC) Expected: 05/02/2024, Expires: 05/30/2025 PTH, Intact Lab Routine Stage 3b chronic kidney disease (HCC) Expected: 05/02/2024, Expires: 05/30/2025 Phosphorus Lab Routine Stage 3b chronic kidney disease (HCC) Expected: 05/02/2024, Expires: 05/30/2025 Immunofixation electrophoresis Lab Routine Stage 3b chronic kidney disease (HCC) Expected: 05/02/2024, Expires: 05/30/2025 CBC and Differential Lab Routine Stage 3b chronic kidney disease (HCC) Expected: 07/31/2024, Expires: 05/31/2025 Renal Function Panel Lab Routine Stage 3b chronic kidney disease (HCC) Expected: 07/31/2024, Expires: 05/31/2025 Urinalysis Lab Routine Stage 3b chronic kidney disease (HCC) Expected: 07/31/2024, Expires: 05/31/2025 Protein, Total, Random Urine w/Creatinine (Protein/Creat Ratio) Lab Routine Stage 3b chronic kidney disease (HCC) Expected: 07/31/2024, Expires: 05/31/2025 Urine Albumin / Creatinine Ratio Lab Routine Stage 3b chronic kidney disease (HCC) Expected: 07/31/2024, Expires: 05/31/2025 Magnesium Lab Routine Stage 3b chronic kidney disease (HCC) Expected: 07/31/2024, Expires: 05/31/2025 Phosphorus Lab Routine Stage 3b chronic kidney disease (HCC) Expected: 07/31/2024, Expires: 05/31/2025 Hemoglobin A1c Lab Routine Stage 3b chronic kidney disease (HCC) Expected: 07/31/2024, Expires: 05/31/2025 Iron Panel (Fe, TIBC, TSAT) Lab Routine Stage 3b chronic kidney disease (HCC) Expected: 07/31/2024, Expires: 05/31/2025 Ferritin Lab Routine Stage 3b chronic kidney disease (HCC) Expected: 07/31/2024, Expires: 05/31/2025 Uric Acid Lab Routine Stage 3b chronic kidney disease (HCC) Expected: 07/31/2024, Expires: 05/31/2025 Cystatin C w/GFR Lab Routine Stage 3b chronic kidney disease (HCC) Expected: 07/31/2024 (Approximate), Expires: 05/31/2025 documented as of this encounter Visit Diagnoses Diagnosis Stage 3b chronic kidney disease (HCC)- Primary documented in this encounter Care Teams Cane Furniture Maker Relationship Specialty Start Date End Date Brielle Barrientos [address] [place] [id number] PCP - General 12/10/23 documented as of this encounter
--- OUTSIDE RECORDS SUMMARY | 2024-05-20 16:30 | XMS_ITS | Data Portability ---
Author Organization [facility] No Chains [facility], Main Office Address [address] [place] [address] Care Team Providers Care Electromechanical Engineer Name Role Phone DEZ CRANDALL Primary Care Provider [phone] [facility] OTHER Assessment Encounter Date Assessment Date Assessment LastModified by Organization Details LastModified Time 04/09/2024 04/09/2024 Labs 04/07:Na 141 K 4.9-Bun 32-Cr 1.7-wbc 6.8-hgb 9.1-hct 29.8-plt 622 [email or web address] Not available 04/09/2024 18:04:34 04/15/2024 04/15/2024 Labs 04/07:Na 141 K 4.9-Bun 32-Cr 1.7-wbc 6.8-hgb 9.1-hct 29.8-plt 622 [email or web address] Not available 04/15/2024 09:21:30 Plan of Treatment Reminders Order Date Submit Date Provider Last Modified By Organization Details Last Modified Time Details Appointments None record ed. Lab None record ed. Referral None record ed. Procedures None record ed. Surgeries None record ed. Imaging None record ed. Medication Orders None record ed. Patient TargetsNo targets recorded. Patient InstructionsNo instructions recorded. Reason for Referral None Reported. Problems Name Problem SNOMED Code Status Onset Date Resolution Date Notes Provider Name and Address Organization Details Recorded Time Fall Active 2024 MICHELLE ZUNIGA [address] , [address], [place], [address] , [facility] [employer] 09:16:30 Closed fracture of hip 692898051 Active 2024 MICHELLE ZUNIGA [address] , [address], [place], [address] , [facility] 09:16:47 Atrial fibrillation 90565004 Active 2024 MICHELLE ZUNIGA [address], [address], [place], [address] , [facility] 5 09:16:55 Chronic kidney disease 238656125 Active [address], [address], [place], [address] , [facility] 5 09:17:02 Anemia 441081971 Active [address], [place], [address] , [facility] 5 09:17:12 Pain in lower limb 95040549 Active [address], [place], [address] , [facility] 5 09:17:23 Cerebrovascul ar accident 748446591 Active [address], [place], [address] , [facility] 5 09:20:05 Diastolic heart failure 404551708 Active [address], [place], [address] , [facility] 5 09:20:19 Hyperlipidemi a 74671002 Active 2024 MICHELLE ZUNIGA [address], [address], [place], [address] , [facility] 5 09:23:49 Urinary incontinence 004767506 Active 2024 SONU ZUNIGAC [address], [address], [place], [address] , [facility] 5 09:24:24 Hyperthyroidi sm 59081140 Active 2024 MICHELLE ZUNIGA [address], [address], [place], [address] , [facility] 5 09:24:50 Depressive disorder 54863927 Active 2024 MICHELLE ZUNIGA [address], [address], [place], [address] , [facility] 5 09:32:32 Anxiety 10605842 Active 2024 MICHELLE ZUNIGA [address] [facility], [address], [place], [address] , [facility] 5 09:32:45 Type 2 diabetes mellitus 46442121 Active 2024 MICHELLE ZUNIGA [address] [facility], [address], [place], [address] , [facility] 5 09:37:23 Essential hypertension 68750642 Active 2024 MICHELLE ZUNIGA [address] [facility] [address], [address], [place], [address] , [facility] 5 09:38:55 Closed intertrochant nora fracture 59212493 Active 2024 Not Available [facility] 5 09:58:24 Pain in left lower limb 566653698 Active 2024 Not Available [facility] 5 09:58:25 Muscle weakness 59998022 Active 2024 Not Available [facility] 5 09:58:25 Incoordinatio n 760920956 Active 2024 Not Available [facility] 5 09:58:26 Difficulty walking 091096533 Active 2024 Not Available [facility] 09:58:26 Hip pain 36340200 Active 2024 Not Available [facility] 5 09:58:27 Paroxysmal atrial fibrillation 749524495 Active 2024 Not Available [facility] 5 09:58:27 Major depression, single episode 41412542 Active 2024 Not Available [facility] 5 09:58:29 Anxiety disorder 320546331 Active 2024 Not Available [facility] 5 09:58:31 Congestive heart failure 78225899 Active 2024 Not Available [facility] 5 09:58:32 Chronic kidney disease stage 4 375693137 Active 2024 Not Available [facility] 5 09:58:32 Cerebrovascul ar disease 62286988 Active 2024 Not Available [facility] 5 09:58:33 Syncope and collapse 288108542 Active 2024 Not Available [facility] 5 09:58:34 Type 2 diabetes mellitus without complication 377585047 Active 2024 Not Available [facility] 5 09:58:34 Problem Notes None recorded. Medical Equipment None Reported. Allergies Allergen ID Allergen Name Allergen Category Reaction Reaction Severity Criticality Documentation Date Start Date Code Code System Note Provider Name and Address Organization Details Recorded Time 15636 Macrobid medicatio n Not available Not available Not available 04/01/20242024 86661 1 RxNorm Not Available Not Available Not Available Medications Name Sig Start Date Stop Date Status Note LastModified by Organization Details LastModified Time latanoprost 0.005 % eye drops Instill 1 drop in both eyes at bedtime for glaucoma 2024 active Not Available Not Available Not Avai lable acetaminoph en 325 mg tablet Give 975 mg by mouth three times a day for pain managemen t 2024 active Not Available Not Available Not Avai lable atorvastati n 20 mg tablet Give 20 mg by mouth in the morning for HLD 2024 active Not Available Not Available Not Avai lable Celexa 10 mg tablet Give 10 mg by mouth in the morning for Depressio n 2024 active Not Available Not Available Not Avai lable oxybutynin chloride ER 10 mg tablet,exte nded release 24 hr Give 1 tablet by mouth one time a day for urinary May cause drowsines s. Avoid alcohol. 2024 active Not Available Not Available Not Avai lable Flonase 50 mcg/actuati on nasal spray,suspe nsion 1 spray in each nostril one time a day for allergies For the nose. Blow nose prior to administr ation. Shake well. 2024 active Not Available Not Available Not Avai lable melatonin 3 mg tablet Give 3 mg by mouth at bedtime for sleep aid 2024 active Not Available Not Available Not Avai lable amlodipine 5 mg tablet Give 1 tablet by mouth one time a day for HTN 2024 active Not Available Not Available Not Avai lable Antivert 12.5 mg tablet Give 1 tablet by mouth every 24 hours as needed for dizziness 2024 active Not Available Not Available Not Avai lable methimazole 5 mg tablet Give 5 mg by mouth in the morning for hypothyro idism 2024 active Not Available Not Available Not Avai lable lorazepam 1 mg tablet Give 0.5 mg by mouth every 24 hours as needed for anxiety for 14 Days 04/14 completed Not Available Not Available Not Available Laxative (sennosides ) 8.6 mg tablet Give 1 tablet by mouth every 24 hours as needed for Constipat ion 2024 active Not Available Not Available Not Avai lable oxycodone 5 mg tablet Give 1 tablet by mouth every 6 hours as needed for pain managemen t 2024 active Not Available Not Available Not Avai lable Adult Low Dose Aspirin 81 mg tablet,luciano yed release Give 1 tablet by mouth one time a day for A-fib Take with full glass of water, do not crush. Monitor for bleeding, bruising, and black tarry stools. Give with food to minimize GI irritatio n 2024 active Not Available Not Available Not Avai lable sodium phosphates 19 gram-7 gram/197 mL enema Insert 1 unit rectally every 24 hours as needed for Constipat ion Use only if Bisacodyl Supposito ry is ineffecti ve 2024 active Not Available Not Available Not Avai lable lactulose 10 gram/15 mL (15 mL) oral solution Give 30 ml by mouth in the morning for bowel 2024 active Not Available Not Available Not Avai lable apixaban 5 mg tablet Give 5 mg by mouth two times a day for A-Fib 2024 active Not Available Not Available Not Avai lable Entresto 24 mg-26 mg tablet Give 1 tablet by mouth two times a day for HTN 2024 active Not Available Not Available Not Avai lable OneLAX Bisacodyl 10 mg rectal suppository Insert 1 supposito ry rectally every 24 hours as needed for constipat ion Use if Senna is Ineffecti ve 2024 active Not Available Not Available Not Avai lable Vitals Date Recorded Body weight Heart rate Respiratory rate Systolic blood pressure Diastolic blood pressure Provider Name and Address Organization Details Last Updated DateTime 04/02/2024 38856.9 7 g 60 /min 18 /min 163 mm[Hg] 56 mm[Hg] Yasmany Tsai MD [address] , [address], [place], [address], [facility] 5 10:39:11 Date Recorded Heart rate Respiratory rate Body temperature Oxygen saturation Oxygen saturation in Arterial blood by Pulse oximetry Systolic blood pressure Diastolic blood pressure Provider Name and Address Organization Details Last Updated DateTime 5 64 /min 18 /min 97.1 [degF] 94 % 94 % 114 mm[Hg] 66 mm[Hg] SALONI PARADA [address] , [address], [place], [address], [facility] 5 16:58:53 Social History Question Answer Notes LastModified by Organizat ion Details LastModified Time Tobacco Smoking Status Never Smoker Yasmany Tsai MD [address] , [address], [place], [address], [facility] 04/02/2024 11:04:02 Do You Have An Advance Directive? Yes Information not available 04/02/2024 What Is Your Level Of Alcohol Consumption? None Information not available 04/02/2024 What Is Your Code Status? Full Code Information not available 04/02/2024 Sex: Unknown Functional Status None recorded. Mental Status None recorded. Family History Nothing Reported Notes:N/C Medical History No medical history recorded. Gynecological HistoryNo gynecological history recorded. Obstetrics History GPAL:G 0 P 0 0 0 0 Immunizations Vaccine Type Date Status Note Provider Nam e and Address Organization Details Recorded Time Tdap 1 completed [facility] 04/02/2024 15:16:24 Pneumococcal conjugate PCV 13 4 completed [facility] 04/02/2024 15:19:37 influenza, unspecified formulation 3 completed [facility] 04/02/2024 15:19:58 influenza, unspecified formulation 4 completed [facility] 04/02/2024 15:20:13 SARS-COV-2 (COVID-19) vaccine, UNSPECIFIED 1 completed [facility] 04/02/2024 15:26:28 SARS-COV-2 (COVID-19) vaccine, UNSPECIFIED 1 completed [facility] 04/02/2024 15:26:36 SARS-COV-2 (COVID-19) vaccine, UNSPECIFIED 1 completed [facility] 04/02/2024 15:26:57 SARS-COV-2 (COVID-19) vaccine, UNSPECIFIED 2 completed [facility] 04/02/2024 15:27:04 SARS-COV-2 (COVID-19) vaccine, UNSPECIFIED 2 completed [facility] 04/02/2024 15:27:11 SARS-COV-2 (COVID-19) vaccine, UNSPECIFIED 4 completed [facility] 04/02/2024 15:27:18 Past Encounters Encounter ID Performer Location Encounter Start Date Encounter Closed Date Diagnosis/Indication Diagnosis SNOMED-CT Code Diagnosis ICD10 Code Diagnosis Note [id number] MICHELLE ZUNIGA [address] [place] [address] 04/01/2024 09:16:03 04/02/2024 15:40:06 Anemia 686757950 D64.9 anemia of chronic disease, low iron, coupled with blood loss from fall/surge rysp IV iron and 3 units RBC transfusio n (last one 03/28)hgb now stable at her baseline of 8 = 03/31 hh 8.0 and 24.8monito r labs on admit and weeklyf/up with renal as plannedif hh drops can consider another iron transfusio n (was getting them outpt) Closed fra cture of hip 543772976 S72.002A sp mechanical fallIntert rochanteri c fracture of left hip sp surgical repair on 03/25tylenol 975 mg tidoxy 5 mg q6h prnmonitor pain and narcs utilizatio n, wean as toleratedB owel regimenOOB with PT, TDWB LLE for 2 weeksEncou rage ice to left hipDaily DSD changesFol low-up with with Dr. Fraire in 4-5 weeks, [phone] aples can be removed in 2 weeksmonit or wound for redness, drainage, increased painadmit to PT OT Fall 7646816 W19.XXXA mechanical fall at homeadmit to PT OTfall precaution s Pain in lower limb 02283 006 M79.606 post op paintyleno l scheduled and oxy prn Atrial fibrillation 4943 6004 I48.91 carrying dxeliquis 5 mg bidnot on rate control medsmonito r hr and bleeding Cerebrovas cular accident 474026434 I63.9 carrying dxasprin 81 mg dailyeliqu is 5 mg bidlipitor 20 mg dailycontr ol BP and sugars Depressive disorder 3548 9007 F32.A carrying dxcelexa 10 mg dailymonit or mood and affectpsyc h eval if needed Anxiety 55258459 F41.9 carrying dxativan 0.5 mg q24h prnmonitor anxiety Chronic ki dney disease 880555518 N18.9 carrying dx of CKD stage 4monitor bmpavoid nephrotoxi c meds as able Diastolic heart failure 390492433 I50.30 carrying dxentresto monitor labs, wts, and volume status Urinary incontinence 165 351363 R32 oxybutynin 10 mg dailymonit or urine output Hyperlipidemia 07575309 E78.5 lipitor 20 mg dailylipid s annually Hyperthyroidism 56502945 E05.90 carrying dxmethimaz ole 5 mg dailytsh/t 4 outpt yearly or as needed Type 2 adeline betes mellitus 86084320 E11.9 carrying dxnot on medsorder [id number] etic diet Essential hypertension 95151003 I10 not in histroy but assumedaml odipine 5 mg dailymonit or bp and bmp [id number] Yasmany Tsai MD [facility] [address] [place] [address] 04/02/2024 10:34:39 04/03/2024 15:54:50 Closed fracture of hip 330447946 S72.002A see HPIleft intertroch anteric fracture post fall underwent surgical correction follow ortho recs and update with concernson eliquis 5 mg bid at baseline for a fibmonitor pain controlort ho f/u in place Fall W19.XXXA PT OT Eval and treatmonit or fall risk and need for increased support in community Anemia 111120074 D62 acute on chronic anemia with baseline crf stage 4, with Hb <6 required transfusio n and IV ironBaseli ne Hb=8 per summaryPat ient on eliquis for A fib at baseline was held due to anemia now restartedm onitor cbc and need for further transfusio ncoordinat e with nephro as needed Atrial fibrillation 4943 6004 I48.0 see above with AC restartede liquis 5 mg bidmonitor for rate control Cerebrovas cular accident 860634076 Z86.79 hx of added to PMHmaintai daniel on statin, asa, and AC Depressive disorder 2628 9007 F33.8 celexa 10 mg dailymonit or moodpsych eval prn Anxiety 07265660 F41.1 ativan 0.5 mg qd prnmonitor for effect and utilizatio npsych eval prn Chronic ki dney disease 980181019 N18.4 baseline crf stage 4monitor renal functionav oid nephrotoxi c meds as ableupdate nephro with concerns Diastolic heart failure 626602732 I50.30 entresto 24-26 mg bidnot maintained on diureticmo nitor respirator y and fluid status Urinary incontinence 165 156315 N39.46 oxybutynin 10 mg qdmonitor for sx relief Hyperlipidemia 90037213 E78.2 lipitor 20 mg qdcontinue d Hyperthyroidism 90211587 E05.80 apparent dx maintained onmethimaz ole 5 mg qdcoordina te with endocrine as needed Essential hypertension 05657928 I10 entresto 24-26 mg bidnorvasc 5 mg qdmonitor bp and need to titrate Primary insomnia 5027377 F51.01 melatonin 3 mg qhsmonitor for effect and need to titrate [id number] DIMITRIOS DUARTE, SALONI REDERLIN [address] [place] [address] 04/09/2024 13:59:53 04/10/2024 15:16:14 Closed fracture of hip 275421128 S72.002A pain is controlled liana removed on 04/08 by nursing- incision healingcon tinue PT/OT for strengthen ing, slow progressio n d/t fatigue and weaknessen couraged to increase hydrationf /u with ortho Diastolic heart failure 123945953 I50.30 euvolemice ntresto 24-26 mg bid- monitor renal function on discharge from acute care Cr 1.5 noted today 1.7 may need to titrateech o cardiogram in December 2023 showed EF greater than 70% Essential hypertension 30467830 I10 continue on norvasc and entrestomo nitor BPfollow labs Type 2 adeline betes mellitus 97475758 E11.9 A1c 5.6cont on current diet Thrombocytosis 7735741 D 75.839 plt 66? reactivewi ll monitor/pl an to repeat labs on 04/14monito r for bleeding, chest pain, paresthesi a [id number] SUYAPA SWEET, [employer] [facility] [address] [place] [address] 04/15/2024 08:55:46 04/17/2024 14:11:53 Closed fracture of hip 017010745 S72.002A mild painstaple s removed on 04/08 by nursing- incision healed with scarcomple dariel PT/OT for strengthen ing, slow progressio n d/t fatigue and weaknessco ntinue TDWB with walker for supportf/u p with ortho as planned = next weekcan use tylenol prn for pain controlrar lisa using oxy = no need for script sent homeVNA set up Diastolic heart failure 861733277 I50.30 euvolemic on examentres to 24-26 mg bidnot on diureticsf /up outptmonit or weight at home Essential hypertension 75941533 I10 continue on norvasc and entrestomo nitor BP outptfollo w labs outptf/up with pcp Type 2 adeline betes mellitus 46407805 E11.9 A1c 5.6cont on current dietf/up with pcp Thrombocytosis 6560627 D 75.839 plt improved to 407f/up with pcp Anemia 287776318 D62 acute on chronic anemia post oprequired post op blood and IV ironhgb stable at 9baseline hgb is around 8labs outptf/up with pcp Fall W19.XXXA completed PT OT Eval and treatVNA servicesmo nitor fall risk and need for increased support in community Atrial fibrillation 4943 6004 I48.0 rate is controlled not on medseliqui s 5 mg bidmonitor for rate control outptf/up with pcp Chronic ki dney disease 242696737 N18.4 baseline crf stage 41/27 cre 1.38monito r renal functionav oid nephrotoxi c meds as ableupdate nephro with concerns and f/up with pcp Cerebrovas cular accident 018820728 Z86.79 hx of added to PMHmaintai daniel on statin, asa, and AC Hyperthyroidism 13862110 E05.80 apparent dx maintained onmethimaz ole 5 mg qdcoordina te with endocrine as neededf/up with pcp Depressive disorder 3548 9007 F33.8 celexa 10 mg dailymonit or mood outptf/up with pcp Primary insomnia 7965571 F51.01 melatonin 3 mg qhsf/up with pcp Anxiety 37042494 F41.1 ativan 0.5 mg qd prnf/up with pcp Urinary incontinence 165 870396 N39.46 oxybutynin 10 mg qdmonitor for sx relief outptf/up with pcp Hyperlipidemia 06096956 E78.2 lipitor 20 mg qdlipids yearly outptf/up with pcp Health Concerns Section Related Observation LastModified by Organization aCsai ls LastModified Time None Recorded Concern Status LastModified by Organization Details LastModified Time None Recorded Advance Directives Directive Y: Payers Encounter Date Sequence Insurance Name Policy Number Policy Corea Covered Member ID Corea Member ID Guarantor Name 04/01/2024 1 [facility] - MEDICARE PREFERRED (MEDICARE REPLACEMENT HMO) LILY Easley [id number] 1 Sherrill Easley 04/02/2024 1 [facility] - MEDICARE PREFERRED (MEDICARE REPLACEMENT HMO) LILY Easley [id number] 1 Sherrill Easley 04/09/2024 1 [facility] - MEDICARE PREFERRED (MEDICARE REPLACEMENT HMO) LILY Easley [id number] 1 Sherrill Easley 04/15/2024 1 [facility] - MEDICARE PREFERRED (MEDICARE REPLACEMENT HMO) LILY Easley [id number] 1 Sherrill Easley Notes Date Note Type Note Provider Name and Address Organization Details Recorded Time 025 text/ht ml Pt is an 83 yo female being seen today for initial intake. Pt presented to [facility] sp fall and was found to have a fracture of her left hip sp surgical repair on 03/25 with [facility]. Hospital stay prolonged dt acute on chronic anemia requiring IV iron and a transfusion. She was seen by therapy who recommended rehab and she was transferred to [place] for a STR stay. Patient seen today. SHe is laying in bed. She is mostly Moldovan speaking but I was able to examine her. SHe tells me her pain is mostly controlled, just a small amount of pain. She is using ice and taking tylenol scheduled. Nursing has no concerns at this time. PMH afib on eliquis, diastolic hf, past CVA, DM, CKD4 SUYAPA SWEET, [employer] DES[employer] [address] [facility] [address], [address], [place], [address], [facility] 04/01/2024 10:08:04 025 text/ht ml Patient is an 83 yo female admit from hospital presenting after fall with left hip pain. Imaging postive for left intertrochanteric fracture. Eval by ortho and underwent surgical correction. Complicated by acute on chronic anemia with Hb <6 required transfusion and IV iron. Baseline Hb=8 per summary. Patient on eliquis for A fib at baseline was held due to anemia. On lovenox for DVT prophylaxis in hospital PMH significant forvertigochfcrf stage 4hx CVAdepressionDManxietyhtnurinary retentiona fib admit to facility for continued care and therapy Yasmany Tsai MD [address], [address], [place], [address], [facility] 04/02/2024 11:07:22 025 text/ht ml Patient is an 83 yr old female seen for acute rounding visit. Per nursing she has been at her baseline in NAD. She has been compliant with taking medication. She is dependent on staff to assist with care needs, patient working is working with therapy. SALONI PARADA [address], [address], [place], [address], [facility] 04/09/2024 18:23:05 025 text/ht ml Patient is an 83 yr old female seen for discharge summary visit. Pt completed rehab stay for left intertrochanteric fracture with surgical repair. Post op complicated by acute on chronic anemia with hgb down to <6 required a transfusion with improvement. Reviewed labs from 04/14 and hgb is stable at 9, baseline is around 8. Pt will dc home tomorrow with family support. SW has set up [facility] services for NSG, PT, OT & PICKUP DRIVER which family is agreeable to. She is happy to be going home and has no medical concerns. She rarely uses oxy for pain. She does still have mild pain but its controlled with tylenol. She is seen today and stable for dc home tomorrow with meds and services. PMH significant forvertigochfcrf stage 4hx CVAdepressionDManxietyhtnurinary retentiona fib MICHELLE ZUNIGA [address] [facility], [address], [place], [address], [facility] 04/15/2024 09:37:19 OBGyn Episode No OBEpisode recorded.
--- OUTSIDE RECORDS SUMMARY | 2024-05-20 16:30 | XMS_ITS | Encounter Summary ---
Author Organization [facility] Address [address] [place] [phone] Phone Care Team Providers Care Outreach Director Name Role Phone Brielle Barrientos Primary Care Provider Encounter Details Date Type Department Care Team ([facility] Contact Info) Description 05/02/2024 Orders Only [facility] [address] [phone] Oscar Lu MD [address] [place] [phone] Social History Tobacco Use Types Packs/Day Years [...] EDT Office Visit [facility] [address] [place] [phone] Oscar Lu MD [facility] [address] [phone] documented as of this encounter Procedures Procedure Name Priority Date/Time Associated Diagnosis Comments MICROSCOPIC EXAMINATION - DO NOT USE Routine 05/02/2024 1:14 PM EST PROTEIN / CREATININE RATIO, URINE Routine 05/02/2024 1:14 PM EST URINE ALBUMIN / CREATININE RATIO Routine 05/02/2024 1:14 PM EST VITAMIN D 25 HYDROXY Routine 05/02/2024 1:14 PM EST URINALYSIS WITH MICROSCOPIC Routine 05/02/2024 1:14 PM EST CBC AND DIFFERENTIAL Routine 05/02/2024 1:14 PM EST IMMUNOFIXATION ELECTROPHORESIS Routine 05/02/2024 1:14 PM EST PHOSPHATE ( PHOSPHORUS) Routine 05/02/2024 1:14 PM EST PTH, INTACT Routine 05/02/2024 1:14 PM EST MAGNESIUM Routine 05/02/2024 1:14 PM EST BASIC METABOLIC PANEL Routine 05/02/2024 1:14 PM EST documented in this encounter Results * (ABNORMAL) Microscopic Examination (05/02/2024 1:14 PM EST) WBC, Urine >30(A) 0 - 5 /hpf [facility] RBC, Urine None seen 0 - 2 /hpf [facility] Squamous Epithelial, Urine 0-10 0 - 10 /hpf [facility] Casts None seen None seen /lpf [facility] Bacteria, Urine Many(A) None seen/Few [facility] 05/02/2024 1:14 PM EST 05/02/2024 us Oscar Lu MD LAB MICROBIOLOGY - NERAL ORDERABLES Final Result [facility] [address] [place] [address] * PTH, Intact (05/02/2024 1:14 PM EST) PTH 32 15 - 65 pg/mL [facility] 05/02/2024 1:14 PM EST 05/02/2024 Oscar Lu MD LAB BLOOD ORDERABLES Final Result Performing Organization Address City/[facility]/ZIP Co de Phone Number [facility] [address] [place] [address] * Magnesium (05/02/2024 1:14 PM EST) Magnesium 1.9 1.6 - 2.3 mg/dL [facility] 05/02/2024 1:14 PM EST 05/02/2024 us Oscar Lu MD LAB BLOOD ORDERABLES Final Result Performing Organization Address City/[facility]/ZIP Co de Phone Number [facility] [address] [place] [address] * Phosphorus (05/02/2024 1:14 PM EST) Phosphorus 4.0 3.0 - 4.3 mg/dL [facility] 05/02/2024 1:14 PM EST 05/02/2024 us Oscar Lu MD LAB BLOOD ORDERABLES Final Result [facility] [address] [place] [address] * Vitamin D 25 Hydroxy (05/02/2024 1:14 PM EST) Vitamin D, 25-OH, Total 43.8 30.0 - 100.0 ng/mL [facility] Comment: Vitamin D deficiency has been defined by the [place] of [employer] and an Endocrine Society practice guideline as a level of serum 25-OH vitamin D less than 20 ng/mL (1,2). The Endocrine Society went on to further define vitamin D insufficiency as a level between 21 and 29 ng/mL (2). 1. IOM ([place] of [employer]). 2010. Dietary reference ?? intakes for calcium and D. [place]: The ?? [employer]. 2. Neil MF, Francisco GARCIA, Quyen QUINTANA, et al. ?? Evaluation, treatment, and prevention of vitamin D ?? deficiency: an Endocrine Society clinical practice ?? guideline. JCEM. 2010; 96(7):1911-30. 05/02/2024 1:14 PM EST 05/02/2024 us Oscar Lu MD LAB BLOOD ORDERABLES Final Result [facility] [address] [place] [address] * (ABNORMAL) Urine Albumin / Creatinine Ratio (05/02/2024 1:14 PM EST) Albumin, Urine 303.1 Not Estab. ug/mL [facility] Albumin/Creatin ine Ratio 214(H) 0 - 29 mg/g creat [facility] Comment: ? Normal: ?0 - ??29 ? Moderately increased: 30 - 300 ? Severely increased: ? >300 05/02/2024 1:14 PM EST 05/02/2024 Oscar Lu MD LAB URINE ORDERABLES Final Result Performing Organization Address [facility] Co de Phone Number [facility] [address] [place] [address] * (ABNORMAL) Protein, Total, Random Urine w/Creatinine (Protein/Creat Ratio) (05/02/2024 1:14 PM EST) Creatinine, Ur 141.7 Not Estab. mg/dL [facility] Protein, Ur 93.9 Not Estab. mg/dL [facility] Urine Protein/Creati nine Ratio 663(H) 0 - 200 mg/g creat [facility] 05/02/2024 1:14 PM EST 05/02/2024 Oscar Lu MD LAB URINE ORDERABLES Final Result Performing Organization Address [facility] Co de Phone Number [facility] [address] [place] [address] * (ABNORMAL) Immunofixation electrophoresis (05/02/2024 1:14 PM EST) IgG 1,220 586 - 1,602 mg/dL [facility] IgA 745(H) 64 - 422 mg/dL [facility] IgM 91 26 - 217 mg/dL [facility] Immunofixation Result, Serum Comment(A ) [facility] Comment:Polyclonal increase detected in one or more immunoglobulins. 05/02/2024 1:14 PM EST 05/02/2024 us Oscar Lu MD LAB BLOOD ORDERABLES Final Result [facility] [address] [place] [address] * (ABNORMAL) Basic Metabolic Panel (05/02/2024 1:14 PM EST) Glucose 104(H) 70 - 99 mg/dL [facility] BUN 25 8 - 27 mg/dL [facility] Creatinine 1.35(H) 0.57 - 1.00 mg/dL [facility] eGFR CKD-EPI CR 2020 39(L) >59 mL/min/1.7 3 [facility] BUN/Creatinine Ratio 19 12 - 28 [facility] Sodium 141 134 - 144 mmol/L [facility] Potassium 4.2 3.5 - 5.2 mmol/L [facility] Chloride 106 96 - 106 mmol/L [facility] Bicarbonate (CO2) 21 20 - 29 mmol/L [facility] Calcium 9.6 8.7 - 10.3 mg/dL [facility] 05/02/2024 1:14 PM EST 05/02/2024 us Oscar Lu MD LAB BLOOD ORDERABLES Final Result [facility] [address] [place] [address] * (ABNORMAL) Urinalysis with microscopic (05/02/2024 1:14 PM EST) Pathologist [facility] Specific [place], Urine 1.021 1.005 - 1.030 [facility] pH Urine 5.5 5.0 - 7.5 [facility] [phone] Color, Urine Yellow Yellow [facility] Appearance Urine Cloudy(A) Clear [facility] [phone] WBC Esterase Urine 3+(A) Negative [facility] Protein, Ur 2+(A) Negative/Tra ce [facility] Glucose, Ur Negative Negative [facility] [phone] Ketones, Urine Trace(A) Negative [facility] [phone] Blood Urine Negative Negative [facility] [phone] Bilirubin Urine Negative Negative [facility] Urobilinogen Urine 1.0 0.2 - 1.0 mg/dL [facility] Nitrite, Urine Negative Negative [facility] Microscopic Examination See below: [facility] Comment:Microscopic was kandice cated and was performed. 05/02/2024 1:14 PM EST 05/02/2024 us Oscar Lu MD LAB URINE ORDERABLES Final Result [facility] [address] [place] [address] * (ABNORMAL) CBC and Differential (05/02/2024 1:14 PM EST) WBC 4.9 3.4 - 10.8 x10E3/uL [facility] RBC 3.44(L) 3.77 - 5.28 x10E6/uL [facility] Hemoglobin 10.3(L) 11.1 - 15.9 g/dL [facility] Hematocrit 32.7(L) 34.0 - 46.6 % [facility] MCV 95 79 - 97 fL [facility] MCH 29.9 26.6 - 33.0 pg [facility] MCHC 31.5 31.5 - 35.7 g/dL [facility] RDW 16.3(H) 11.7 - 15.4 % [facility] Platelets 314 150 - 450 x10E3/uL [facility] Neutrophils Relative 56 Not Estab. % [facility] Lymphocytes Relative 34 Not Estab. % [facility] Monocytes 6 Not Estab. % [facility] Eosinophils Relative 3 Not Estab. % [facility] Basophils Relative 1 Not Estab. % [facility] Neutrophils Absolute 2.7 1.4 - 7.0 x10E3/uL [facility] Lymphocytes Absolute 1.7 0.7 - 3.1 x10E3/uL [facility] Monocytes Absolute 0.3 0.1 - 0.9 x10E3/uL [facility] Eosinophils Absolute 0.2 0.0 - 0.4 x10E3/uL [facility] Basophils Absolute 0.1 0.0 - 0.2 x10E3/uL [facility] Immature Granulocytes 0 Not Estab. % [facility] Immature Grans (Absolute) 0.0 0.0 - 0.1 x10E3/uL [facility] 05/02/2024 1:14 PM EST 05/02/2024 Oscar Lu MD LAB BLOOD ORDERABLES Final Result [facility] [address] [place] [address] documented in this encounter Visit Diagnoses Not on filedocumented in this encounter Care Teams Outreach Director Relationship Specialty Start Date End Date Brielle Barrientos [address] [place] [phone] PCP - General 12/10/23 documented as of this encounter
--- OUTSIDE RECORDS SUMMARY | 2024-05-20 16:30 | XMS_ITS | Clinical Summary ---
Author Organization [facility] Address [address] [place] [address] Care Team Providers Care Weigher Production Name Role Phone Yahir Bill MD Primary Care Provider [phone] Allergies No known active allergies Medications Medication Sig Dispensed Refills Start Date End Date Status rosuvastatin (CRESTOR) tablet 10 mg Take 10 mg by mouth daily. 0 Active cloNIDine (CATAPRES) 0.2 MG tablet Take 0.2 mg by mouth 2 (two) times a day. 0 Active hydrochlorothiazide (HYDRODIURIL) tablet 25 mg Take 25 mg by mouth daily. 0 Active lisinopril (PRINIVIL,ZESTRIL) tablet 40 mg Take 40 mg by mouth daily. 0 Active metFORMIN (GLUCOPHAGE) tablet 1000 mg Take 1,000 mg by mouth 2 (two) times a day with meals. 1/2 pill daily 0 Active atorvastatin (LIPITOR) tablet 40 mg Take 40 mg by mouth daily. 0 Active carvedilol (COREG) 12.5 MG tablet Take 12.5 mg by mouth 2 (two) times a day with meals. 0 Active glipiZIDE (GLUCOTROL XL) ER 24 hr tablet 2.5 mg Take 2.5 mg by mouth daily. 0 Active aspirin EC 81 MG tablet Take 81 mg by mouth daily. 0 Active amLODIPine (NORVASC) tablet 5 mg Take 5 mg by mouth daily. 0 Active oxybutynin (DITROPAN) 5 MG tablet Take 5 mg by mouth 3 (three) times a day. 0 Active traZODone (DESYREL) 100 MG tablet Take 100 mg by mouth every night at bedtime. 0 Active LORazepam (ATIVAN) 0.5 MG tablet Take 1 tablet (0.5 mg total) by mouth every 6 (six) hours as needed. 24 tablet 0 05/03/2023 Active Active Problems No known active problems Social History Tobacco Use Types Packs/Day Years Used Date Smoking Tobacco: Never Smokeless Tobacco: Never Alcohol Use Standard Drinks/Week Comments No 0 (1 standard drink = 0.6 oz pur e alcohol) Sex and Gender Information Value Date Recorded Sex Assigned at Not on file Gender Identity Not on file Sexual Orientation Not on file Job Start Date Occupation Industry Not on file Not on file Not on file Last Filed Vital Signs Vital Sign Reading Time Taken Comments Blood Pressure 125/42 01/23/2023 10:04 AM EST Pulse 69 01/23/2023 10:04 AM EST Temperature 36.6 ??C (97.8 ??F) 01/23/2023 10:[address] Respiratory Rate - - Oxygen Saturation 100% 01/23/2023 10:04 AM EST Inhaled Oxygen Concentration - - Weight 61.2 kg (135 lb) 01/23/2023 10:04 AM EST Height 155.6 cm (5' 1.25 ) 08/29/2018 10:56 AM E DT Body Mass Index 25.3 08/29/2018 10:56 AM EDT Plan of Treatment Health Maintenance Due Date Last Done Comments COVID-19 Vaccine (#1) 06/13/1941 Depression Screening 1952 Preventative Health Evaluation 12/14/1957 Shingrix-Zoster Vaccine (1 of 2) 12/14/1989 Fall Risk Assessment 12/14/2004 Osteoporosis Screening (DEXA Scan) 12/14/2004 Pneumococcal Vaccine (1 of 1 - PCV) 12/14/2004 RSV Adult > 60+ Yrs or Pregn ant (1 - 1-dose 75+ series) 12/14/2014 Influenza Vaccine (#1) 2023 DTap / Tdap / Td (2 - Td or Tdap) 10/05/2030 021 Hepatitis B Vaccines Aged Out No long er eligible based on patient's age to complete this topic RSV Ped < 20 months Aged Out No longe r eligible based on patient's age to complete this topic Care Teams Weigher Production Relationship Specialty Start Date End Date Yahir Bill MD PCP - General Internal Medicine 11/14/16
== END 2024-05-20 14:06 | disposition home or self-care (01) ==
PROVIDERS: PCP Family Medicine; Visit Provider Psychiatry & Neurology Neurology
DX: I69.398 Other sequelae of cerebral infarction (principal); R42 Dizziness and giddiness; M54.2 Cervicalgia
CPT/HCPCS: 99214; G2211

== ENCOUNTER → 2024-05-20 13:10 | Outpatient (BNVA) | payer MEDICARE, SELFPAY | PROVIDERS: PCP Family Medicine; Visit Provider Psychiatry & Neurology Neurology | DX: R42 Dizziness and giddiness (principal); M54.2 Cervicalgia; Z86.73 Personal history of transient ischemic attack (TIA), and cerebral infarction without residual deficits | CPT/HCPCS: 99212 ==